=== PATIENT | male | born 1965 | race Caucasian/White ===

== ENCOUNTER 2017-07-07 09:07 | Inpatient (IN) | payer BC, MEDICARE ==
[2017-07-07] MEDS ORDERED: ALBUTEROL NEBULIZED 2.5 MG/3 ML INHALATION STA (09:22)
[2017-07-07] MEDS ORDERED: IPRATROPIUM 0.5 MG/2.5 ML NEBU INHALATION STA (09:22)
[2017-07-07] MEDS ORDERED: AZITHROMYCIN 500 MG in SODIUM CHLORIDE 0.9% 250 ML IVPB STA (09:28)
[2017-07-07] MEDS ORDERED: SODIUM CHLORIDE 0.9% 1,000 ML IV STA ×2 (09:28)
--- NOTE | 2017-07-07 09:30 | ED ---
General Adult HPI - General Chief complaint: Shortness of Breath Stated complaint: Diff Breathing, Cough, Congestion Time Seen by Provider: 07/07/17 09:28 Source: patient, RN notes reviewed, old records reviewed Mode of arrival: wheelchair Limitations: no limitations - History of Present Illness Initial comments: This is a 31-year-old male the ER for evaluation severe shortness of breath severe worsening of symptoms. Difficulty breathing. Denies chest pain, patient 's poor strain secondary to clinical condition. Patient states he cannot catch his breath, initial pulse ox evaluation is in the 70s. Patient significantly to Neck and tachycardic - Related Data Home Medications Medication Instructions Recorded Confirmed Atorvastatin Calcium [Lipitor] 10 mg PO HS 07/07/17 07/07/17 Beclomethasone Dipropionate [Qvar 1 puff INHALATION RT-BID 07/07/17 07/07/17 80 mcg] Losartan [Cozaar] 50 mg PO DAILY 07/07/17 07/07/17 Previous Rx's Medication Instructions Recorded Ipratropium-Albuterol Nebulize 3 ml INHALATION RT-QID #120 08/20/15 [Duoneb 0.5 mg-3 mg/3 ml Soln] ampul.neb Allergies Allergy/AdvReac Type Severity Reaction Status Date / Time No Known Allergies Allergy Verified 07/07/17 09:52 Review of Systems ROS Statement: Those systems with pertinent positive or pertinent negative responses have been documented in the HPI. ROS Other: All systems not noted in ROS Statement are negative. Past Medical History Past Medical History: Unable to Obtain, COPD Additional Past Medical History / Comment(s): sons and brother unaware of any medical condition other than COPD History of Any Multi-Drug Resistant Organisms: Unobtainable Past Surgical History: Unable to Obtain Past Anesthesia/Blood Transfusion Reactions: Unable to Obtain Past Psychological History: Unable to Obtain Smoking Status: Current every day smoker Past Alcohol Use History: Daily, Heavy Past Drug Use History: Marijuana - Past Family History Mother Family Medical History: Unable to Obtain General Exam Limitations: no limitations General appearance: alert, anxious, in distress Head exam: Present: atraumatic, normocephalic, normal inspection Eye exam: Present: normal appearance, PERRL, EOMI. Absent: scleral icterus, conjunctival injection, periorbital swelling ENT exam: Present: normal exam, mucous membranes moist Neck exam: Present: normal inspection. Absent: tenderness, meningismus, lymphadenopathy Respiratory exam: Present: respiratory distress, wheezes, accessory muscle use, decreased breath sounds, prolonged expiratory. Absent: normal lung sounds bilaterally, rales, rhonchi, stridor Cardiovascular Exam: Present: normal rhythm, tachycardia, normal heart sounds. Absent: systolic murmur, diastolic murmur, rubs, gallop, clicks GI/Abdominal exam: Present: soft, normal bowel sounds. Absent: distended, tenderness, guarding, rebound, rigid Extremities exam: Present: normal inspection, full ROM, normal capillary refill. Absent: tenderness, pedal edema, joint swelling, calf tenderness Back exam: Present: normal inspection Neurological exam: Present: alert, oriented X3, CN II-XII intact Psychiatric exam: Present: normal affect, normal mood Skin exam: Present: warm, dry, intact, normal color. Absent: rash Course Vital Signs 07/07/17 07/07/17 07/07/17 09:08 09:26 09:27 Temperature 99.2 F Pulse Rate 120 H 102 H Respiratory 26 H 22 Rate Blood Pressure 151/73 O2 Sat by Pulse 71 L Oximetry 07/07/17 07/07/17 09:45 10:15 Temperature Pulse Rate 108 H 107 H Respiratory Rate Blood Pressure O2 Sat by Pulse Oximetry - Reevaluation(s) Reevaluation #1: 07/07/17 10:30 Patient does have improvement in oxygenation with breathing treatments, still borderline BiPAP, will continue prolonged breathing treatment and reassessed EKG Findings - EKG Comments: EKG Findings:: EKG shows sinus tach rate 114, [place] 120, QRS 80, QTC 407 Medical Decision Making - Medical Decision Making 48 female the ER for evaluation of shortness of breath, severe shortness of breath with history of COPD, continues to smoke, patient to be admitted for severe COPD exacerbation with hypoxia - Lab Data Result diagrams: 07/07/17 09:20 07/07/17 09:20 Lab Results 07/07/17 07/07/17 07/07/17 Range/Units 09:20 09:20 09:20 WBC 9.1 (3.8-10.6) k/uL RBC 4.66 (4.30-5.90) m/uL Hgb 14.7 (13.0-17.5) gm/dL Hct 45.6 (39.0-53.0) % MCV 97.7 (80.0-100.0) fL MCH 31.5 (25.0-35.0) pg MCHC 32.2 (31.0-37.0) g/dL RDW 12.8 (11.5-15.5) % Plt Count 293 (150-450) k/uL Neutrophils % 68 % Lymphocytes % 11 % Monocytes % 16 % Eosinophils % 1 % Basophils % 0 % Neutrophils # 6.2 (1.3-7.7) k/uL Lymphocytes # 1.0 (1.0-4.8) k/uL Monocytes # 1.4 H (0-1.0) k/uL Eosinophils # 0.1 (0-0.7) k/uL Basophils # 0.0 (0-0.2) k/uL Manual Slide Review Performed PT (9.0-12.0) sec INR (<1.2) APTT (22.0-30.0) sec Sodium 141 (137-145) mmol/L Potassium 5.1 (3.5-5.1) mmol/L Chloride 87 L (98-107) mmol/L Carbon Dioxide 40 H* (22-30) mmol/L Anion Gap 14 mmol/L BUN 19 (9-20) mg/dL Creatinine 0.42 L (0.66-1.25) mg/dL Est GFR (CKD-EPI)AfAm >90 (>60 ml/min/1.73 sqM) Est GFR (CKD-EPI)NonAf >90 (>60 ml/min/1.73 sqM) Glucose 181 H (74-99) mg/dL Calcium 10.2 (8.4-10.2) mg/dL Magnesium 1.9 (1.6-2.3) mg/dL Total Bilirubin 0.7 (0.2-1.3) mg/dL AST 16 L (17-59) U/L ALT 21 (21-72) U/L Alkaline Phosphatase 87 (38-126) U/L Total Creatine Kinase 26 L (55-170) U/L CK-MB (CK-2) 2.0 (0.0-2.4) ng/mL CK-MB (CK-2) Rel Index 7.7 Troponin I <0.012 (0.000-0.034) ng/mL NT-Pro-B Natriuret Pep pg/mL Total Protein 7.2 (6.3-8.2) g/dL Albumin 4.6 (3.5-5.0) g/dL 07/07/17 07/07/17 Range/Units 09:20 09:20 WBC (3.8-10.6) k/uL RBC (4.30-5.90) m/uL Hgb (13.0-17.5) gm/dL Hct (39.0-53.0) % MCV (80.0-100.0) fL MCH (25.0-35.0) pg MCHC (31.0-37.0) g/dL RDW (11.5-15.5) % Plt Count (150-450) k/uL Neutrophils % % Lymphocytes % % Monocytes % % Eosinophils % % Basophils % % Neutrophils # (1.3-7.7) k/uL Lymphocytes # (1.0-4.8) k/uL Monocytes # (0-1.0) k/uL Eosinophils # (0-0.7) k/uL Basophils # (0-0.2) k/uL Manual Slide Review PT 9.3 (9.0-12.0) sec INR 0.9 (<1.2) APTT 23.1 (22.0-30.0) sec Sodium (137-145) mmol/L Potassium (3.5-5.1) mmol/L Chloride (98-107) mmol/L Carbon Dioxide (22-30) mmol/L Anion Gap mmol/L BUN (9-20) mg/dL Creatinine (0.66-1.25) mg/dL Est GFR (CKD-EPI)AfAm (>60 ml/min/1.73 sqM) Est GFR (CKD-EPI)NonAf (>60 ml/min/1.73 sqM) Glucose (74-99) mg/dL Calcium (8.4-10.2) mg/dL Magnesium (1.6-2.3) mg/dL Total Bilirubin (0.2-1.3) mg/dL AST (17-59) U/L ALT (21-72) U/L Alkaline Phosphatase (38-126) U/L Total Creatine Kinase (55-170) U/L CK-MB (CK-2) (0.0-2.4) ng/mL CK-MB (CK-2) Rel Index Troponin I (0.000-0.034) ng/mL NT-Pro-B Natriuret Pep 259 pg/mL Total Protein (6.3-8.2) g/dL Albumin (3.5-5.0) g/dL Critical Care Time Critical Care Time: Yes Total Critical Care Time: 31 Disposition Clinical Impression: Acute exacerbation of chronic obstructive pulmonary disease, Acute respiratory failure, Hypoxia Disposition: ADMITTED IP TO THIS HOSP Condition: Serious Is patient prescribed a controlled substance at d/c from ED?: No Referrals: Fabien Plata DO [Primary Care Provider] - 1-2 days
[2017-07-07 09:39] LABS: Basophils % (A) 0 %; Eosinophils # (A) 0.1 k/uL (0-0.7); Eosinophils % (A) 1 %; HCT 45.6 % (39.0-53.0); HGB 14.7 gm/dL (13.0-17.5); Lymphocytes % (A) 11 %; MCH 31.5 pg (25.0-35.0); MCHC 32.2 g/dL (31.0-37.0); MCV 97.7 fL (80.0-100.0); Mean Platelet Volume 6.6; Monocytes # (A) 1.4 k/uL (0-1.0); Monocytes % (A) 16 %; Neutrophils # (A) 6.2 k/uL (1.3-7.7); Neutrophils % (A) 68 %; Platelet Count 293 k/uL (150-450); RBC 4.66 m/uL (4.30-5.90); RDW 12.8 % (11.5-15.5); WBC 9.1 k/uL (3.8-10.6)
[2017-07-07 09:46] LABS: ALT 21 U/L (21-72); AST 16 U/L (17-59); Albumin 4.6 g/dL (3.5-5.0); Alkaline Phosphatase 87 U/L (38-126); Anion Gap 14 mmol/L; Blood Urea Nitrogen 19 mg/dL (9-20); Calcium 10.2 mg/dL (8.4-10.2); Chloride 87 mmol/L (98-107); Glucose 181 mg/dL (74-99); Magnesium 1.9 mg/dL (1.6-2.3); Potassium 5.1 mmol/L (3.5-5.1); Sodium 141 mmol/L (137-145); Total Bilirubin 0.7 mg/dL (0.2-1.3); Total Protein 7.2 g/dL (6.3-8.2)
[2017-07-07 09:47] LABS: INR 0.9 (<1.2); Partial Thromboplastin Time 23.1 sec (22.0-30.0); Prothrombin Time 9.3 sec (9.0-12.0)
--- NOTE | 2017-07-07 09:50 | XR ---
EXAMINATION TYPE: XR chest 1V portable DATE OF EXAM: 07/07/2017 COMPARISON: 08/16/2015 HISTORY: Shortness of breath TECHNIQUE: Single frontal view of the chest is obtained. FINDINGS: Hyperinflation suggests COPD. Prominence the pulmonary arteries may reflect underlying pul monary arterial hypertension. No pneumothorax or pleural effusion. No consolidation. Hyperinflation s uggests COPD. IMPRESSION: Correlate for COPD and possible pulmonary arterial hypertension. Subsegmental changes at the left lung base are more typical of atelectasis than pneumonia.
[2017-07-07 10:01] LABS: Carbon Dioxide 40 mmol/L (22-30)
[2017-07-07 10:05] LABS: Creatine Kinase 26 U/L (55-170)
[2017-07-07 10:18] LABS: Troponin I <0.012 ng/mL (0.000-0.034)
[2017-07-07] MEDS ORDERED: methylPREDNISolone SOD SUCCI 125 MG/2 ML VIAL IV STA (10:30)
[2017-07-07] MEDS: methylPREDNISolone SOD SUCCI 125 MG/2 ML VIAL IV SCH ×2 (11:59→17:07)
[2017-07-07] MEDS: IPRATROPIUM-ALBUTEROL 3 ML NEB INHALATION SCH ×3 (12:24→20:19)
[2017-07-07 14:04] LABS: ABG Oxygen Saturation 88.6 % (94-97); ABG PH 7.22 (7.35-7.45); ABG PO2 60 mmHg (83-108); ABG TCO2 43 mmol/L (19-24)
[2017-07-07 14:07] LABS: ABG PCO2 96 mmHg (35-45)
[2017-07-07 14:08] LABS: ABG HCO3 40 mmol/L (21-25)
[2017-07-07] MEDS: LEVOFLOXACIN 750MG-D5W PMX 750 MG in DEXTROSE/WATER 1 150ML.BAG IVPB SCH (14:14)
--- NOTE | 2017-07-07 15:56 | P.HPIM ---
History of Present Illness H&P Date: 07/07/17 Chief Complaint: shortness of breath This is a 51 years old male with past medical history of COPD on 3 L of oxygen at home, hyperlipidemia, hypertension sees Dr. SUNSHINE from pulmonary comes in with increased congestion and shortness of breath for the past 3 days. He did does endorses congestion and wheezing . States his mother was sick and she lives with him. Patient was evaluated in the ER and was desaturating to 71% on room air with improvement of oxygen saturation on nasal cannula. On evaluation this morning patient is currently on BiPAP. Stat ABG was obtained with suggest a pH of 7.22, CO2 96, pO2 60. CBC was unremarkable this morning BMP suggested of chloride 87, carbon dioxide 40 creatinine 0.42 glucose 181. Patient initiated on IV Solu-Medrol 60 every 6 hours with DuoNeb's and Pulmicort. Dr. Magallon consulted. Patient is in impending respiratory failure and might need intubation if no improvement in next 24 hours. Review of Systems Constitutional: Denies chills, Denies fever, Denies lethargy, Denies malaise, Denies poor appetite, Denies weakness, Denies weight loss Eyes: denies decreased vision, denies diplopia, denies discharge, denies pain Ears: deny: decreased hearing Ears, nose, mouth and throat: Denies dental pain, Denies headache, Denies nasal discharge, Denies nose pain Cardiovascular: Denies chest pain, Denies decreased exercise tolerance, Denies edema, Denies high blood pressure, Denies irregular heart beat, Denies palpitations, Denies paroxysmal nocturnal dyspnea, Denies rapid heart beat, endorses shortness of breath Respiratory: Endorses endorses cough with sputum, endorses dyspnea, endorses home oxygen, endorses wheezing Gastrointestinal: Denies abdominal pain, Denies change in bowel habits, Denies coffee ground emesis, Denies early satiety, Denies excessive gas, Denies heartburn, Denies hematemesis, Denies hematochezia, Denies loss of appetite, Denies nausea, Denies vomiting Genitourinary: Denies dysuria, Denies flank pain, Denies kidney stones, Denies menorrhagia, Denies urgency, Denies urinary frequency Musculoskeletal: Denies gait dysfunction, Denies limitation of motion, Denies morning stiffness, Denies muscle cramps Integumentary: Denies rash, Denies wounds, Denies brittle nails, Denies change in hair/nails, Denies darkening of skin Neurological: Denies balance difficulties, Denies change in speech, Denies double vision, Denies gait dysfunction, Denies loss of vision, Denies motor disturbance, Denies numbness, Denies paralysis, Denies paresthesias, Denies seizures Psychiatric: Denies anxiety, Denies depression Endocrine: Denies excessive sweating, Denies excessive thirst, Denies high blood sugars, Denies palpitations Hematologic/Lymphatic: Denies easy bruising, Denies lymphadenopathy Past Medical History Past Medical History: COPD, Hyperlipidemia, Hypertension Additional Past Medical History / Comment(s): Respiratory failure and has been vented, home O2 at 3L/NC lately ATC but normally at HS only, denies any hx of DE. History of Any Multi-Drug Resistant Organisms: None Reported Past Surgical History: Unable to Obtain, Hernia Repair, Orthopedic Surgery Additional Past Surgical History / Comment(s): R knee arthroscopy, R inguinal hernia repair. Past Anesthesia/Blood Transfusion Reactions: No Reported Reaction Smoking Status: Current every day smoker - Past Family History Mother Family Medical History: Coronary Artery Disease (CAD), Osteoarthritis (OA) Additional Family Medical History / Comment(s): Mother had CABG. She is 85 yrs old. Father Family Medical History: No Reported History Additional Family Medical History / Comment(s): Father is healthy and in his 80s. Medications and Allergies Home Medications Medication Instructions Recorded Confirmed Type Ipratropium-Albuterol Nebulize 3 ml INHALATION RT-QID #120 08/20/15 07/07/17 Rx [Duoneb 0.5 mg-3 mg/3 ml Soln] ampul.neb Atorvastatin Calcium [Lipitor] 10 mg PO HS 07/07/17 07/07/17 History Beclomethasone Dipropionate [Qvar 1 puff INHALATION RT-BID 07/07/17 07/07/17 History 80 mcg] Losartan [Cozaar] 50 mg PO DAILY 07/07/17 07/07/17 History Allergies Allergy/AdvReac Type Severity Reaction Status Date / Time No Known Allergies Allergy Verified 07/07/17 09:52 Physical Exam Vitals: Vital Signs Temp Pulse Pulse Resp BP BP Pulse Ox 07/07/17 12:36 101 H 31 H 07/07/17 12:28 97.2 F L 104 H 24 143/78 92 L 07/07/17 12:24 107 H 28 H 91 L 07/07/17 12:10 98.0 F 07/07/17 11:49 102 H 16 142/72 96 07/07/17 11:00 105 H 18 150/81 96 07/07/17 10:41 108 H 07/07/17 10:15 107 H 07/07/17 09:45 108 H 07/07/17 09:27 102 H 07/07/17 09:26 22 07/07/17 09:08 99.2 F 120 H 26 H 151/73 71 L Intake and Output 07/07/17 07/07/17 07/07/17 06:59 14:59 22:59 Other: Weight 63.503 kg - Constitutional General appearance: cooperative, in acute distress, seen in tripod position on BiPAP answering questions appropriately with good cognition - EENT Eyes: anicteric sclerae, PERRLA, normal appearance ENT: hearing grossly normal - Neck Neck: no lymphadenopathy, normal ROM, no other, no rigidity, no stridor, no thyromegaly - Respiratory Respiratory: bilateral: Decreased air entry with diffuse wheezing best heard in the right upper lobe - Cardiovascular Rhythm: regular Heart sounds: normal: S1, S2 Abnormal Heart Sounds: no systolic murmur, no diastolic murmur, no rub, no S3 Gallop, no S4 Gallop, no click, no other - Gastrointestinal General gastrointestinal: normal bowel sounds, soft - Integumentary Integumentary: no rash - Neurologic Neurologic: CNII-XII intact - Musculoskeletal Musculoskeletal: gait normal, strength equal bilaterally - Psychiatric Psychiatric: A&O x's 3, appropriate affect Results CBC & Chem 7: 07/07/17 09:20 07/07/17 09:20 Labs: Abnormal Lab Results - Last 24 Hours (Table) 07/07/17 07/07/17 07/07/17 Range/Units 09:20 09:20 09:20 Monocytes # 1.4 H (0-1.0) k/uL ABG pH (7.35-7.45) ABG pCO2 (35-45) mmHg ABG pO2 (83-108) mmHg ABG HCO3 (21-25) mmol/L ABG Total CO2 (19-24) mmol/L ABG O2 Saturation (94-97) % Chloride 87 L (98-107) mmol/L Carbon Dioxide 40 H* (22-30) mmol/L Creatinine 0.42 L (0.66-1.25) mg/dL Glucose 181 H (74-99) mg/dL AST 16 L (17-59) U/L Total Creatine Kinase 26 L (55-170) U/L 07/07/17 Range/Units 13:55 Monocytes # (0-1.0) k/uL ABG pH 7.22 L (7.35-7.45) ABG pCO2 96 H* (35-45) mmHg ABG pO2 60 L (83-108) mmHg ABG HCO3 40 H* (21-25) mmol/L ABG Total CO2 43 H (19-24) mmol/L ABG O2 Saturation 88.6 L (94-97) % Chloride (98-107) mmol/L Carbon Dioxide (22-30) mmol/L Creatinine (0.66-1.25) mg/dL Glucose (74-99) mg/dL AST (17-59) U/L Total Creatine Kinase (55-170) U/L Thrombosis Risk Factor Assmnt - DVT/VTE Prophylaxis DVT/VTE Prophylaxis: Pharmacologic Prophylaxis ordered - Choose All That Apply Any of the Below Risk Factors Present?: Yes Each Factor Represents 1 point: Abnormal pulmonary function (COPD), Age 41-60 years Other Risk Factors: No Other congenital or acquired thrombophilia - If yes, enter type in comment: No Thrombosis Risk Factor Assessment Total Risk Factor Score: 2 Thrombosis Risk Factor Assessment Level: Low Risk Assessment and Plan Plan: #1 acute hypoxic hypercapnic respiratory failure secondary to COPD exacerbation. Patient initiated on IV steroids 60 every 6 hours with DuoNeb's. Sputum culture to be collected. Pulmicort twice a day. Mucinex for cough. Levofloxacin 750 mg daily. Fluids to be discontinued. Incentive spirometry #2 hypertension continue losartan 50 mg daily #3 Hyperlipidemia continue Lipitor 10 mg at bedtime #4 tobacco abuse. Patient counseled on smoking cessation, understands that he should not be smoking and wearing oxygen. Plans to continue despite counseling #5 code status full code #6 GI prophylaxis with Pepcid 20 mg twice a day #7 DVT prophylaxis with Lovenox 40 subcu daily Disposition need 2 inpatient nights for COPD exacerbation
[2017-07-07] MEDS ORDERED: ACETAMINOPHEN TAB 325 MG TAB PO PRN (15:57)
[2017-07-07] MEDS ORDERED: ONDANSETRON 4 MG/2 ML VIAL IVP PRN (15:57)
[2017-07-07 16:41] LABS: Glucose,Whole Blood 180 mg/dL (75-99)
[2017-07-07] MEDS: INSULIN ASPART 100 UNIT/ML 1 ML 10 ML VIAL SQ SCH ×2 (17:07→21:39)
--- NOTE | 2017-07-07 17:32 | P.CNPUL ---
History of Present Illness Consult date: 07/07/17 Reason for consult: dyspnea, cough, COPD, hypoxemia, pulmonary hypertension Chief complaint: Shortness of breath and cough progressive for last 5 days History of present illness: 51-year-old male with the history of end-stage lung disease and severe COPD emphysema still smoking a pack a day patient started having progressive increased shortness breath for almost one week however started coughing about 5 days ago cough has been associated with thick greenish sputum patient the continue to have progressive worsening of shortness of breath up to a point that he couldn't smoke or inhale, decided to come into the emergency department for further evaluation he was found to have severe degree of hypercapnic hypoxic respirator failure his preliminary arterial blood gas performed in the emergency department revealed pH of 7.22, PaCO2 of 96, PA O2 of 60, patient has been placed on BiPAP machine currently during evaluation he was on IPAP with IPAP of 12 and EPAP of 6 sets respiratory rate of 16 and 40% oxygen he was breathing in 30s difficulty in completing the sentences though but overall on specific questioning he feels the severity of shortness of breath has improved slightly compared to the time of arrival, on specific questioning he denies any seizure activity loss of consciousness), denies any chest pain neck sips some chest tightness, does have cough associated with sputum production denies any hemoptysis, denies any nausea vomiting diarrhea, denies any bowel or bladder dysfunction Review of Systems All systems: negative Past Medical History Past Medical History: COPD, Hyperlipidemia, Hypertension Additional Past Medical History / Comment(s): Respiratory failure and has been vented, home O2 at 3L/NC lately ATC but normally at HS only, denies any hx of ID. History of Any Multi-Drug Resistant Organisms: None Reported Past Surgical History: Unable to Obtain, Hernia Repair, Orthopedic Surgery Additional Past Surgical History / Comment(s): R knee arthroscopy, R inguinal hernia repair. Past Anesthesia/Blood Transfusion Reactions: No Reported Reaction Smoking Status: Current every day smoker - Past Family History Mother Family Medical History: Coronary Artery Disease (CAD), Osteoarthritis (OA) Additional Family Medical History / Comment(s): Mother had CABG. She is 85 yrs old. Father Family Medical History: No Reported History Additional Family Medical History / Comment(s): Father is healthy and in his 80s. Medications and Allergies Home Medications Medication Instructions Recorded Confirmed Type Ipratropium-Albuterol Nebulize 3 ml INHALATION RT-QID #120 08/20/15 07/07/17 Rx [Duoneb 0.5 mg-3 mg/3 ml Soln] ampul.neb Atorvastatin Calcium [Lipitor] 10 mg PO HS 07/07/17 07/07/17 History Beclomethasone Dipropionate [Qvar 1 puff INHALATION RT-BID 07/07/17 07/07/17 History 80 mcg] Losartan [Cozaar] 50 mg PO DAILY 07/07/17 07/07/17 History Allergies Allergy/AdvReac Type Severity Reaction Status Date / Time No Known Allergies Allergy Verified 07/07/17 09:52 Physical Exam Vitals: Vital Signs Temp Pulse Pulse Resp BP BP Pulse Ox 07/07/17 17:09 100 07/07/17 15:49 97.0 F L 103 H 24 139/81 91 L 07/07/17 12:36 101 H 31 H 07/07/17 12:28 97.2 F L 104 H 24 143/78 92 L 07/07/17 12:24 107 H 28 H 91 L 07/07/17 12:10 98.0 F 07/07/17 11:49 102 H 16 142/72 96 07/07/17 11:00 105 H 18 150/81 96 07/07/17 10:41 108 H 07/07/17 10:15 107 H 07/07/17 09:45 108 H 07/07/17 09:27 102 H 07/07/17 09:26 22 07/07/17 09:08 99.2 F 120 H 26 H 151/73 71 L Intake and Output 07/07/17 07/07/17 07/07/17 06:59 14:59 22:59 Output Total 200 Balance -200 Output: Urine 200 Other: Voiding Method Urinal # Voids 1 # Bowel Movements 0 Weight 63.503 kg - Constitutional General appearance: cooperative, in acute distress, sitting upright position on BiPAP answering questions appropriately with good cognition however have difficult time and completing the sentences - EENT Eyes: anicteric sclerae, PERRLA, normal appearance ENT: hearing grossly normal - Neck Neck: no lymphadenopathy, normal ROM, no other, no rigidity, no stridor, no thyromegaly - Respiratory Respiratory: bilateral poor air entry with fine diffuse wheezing - Cardiovascular Rhythm: regular Heart sounds: normal: S1, S2 Abnormal Heart Sounds: no systolic murmur, no diastolic murmur, no rub, no S3 Gallop, no S4 Gallop, no click, no other - Gastrointestinal General gastrointestinal: normal bowel sounds, soft - Integumentary Integumentary: no rash - Neurologic Neurologic: CNII-XII intact, overall normal neurologic examination - Musculoskeletal Musculoskeletal: gait normal, strength equal bilaterally - Psychiatric Psychiatric: A&O x's 3, appropriate affect Results - Laboratory Findings CBC and BMP: 07/07/17 09:20 07/07/17 09:20 ABG ABG pH 7.22 (7.35-7.45) L 07/07/17 13:55 ABG pCO2 96 mmHg (35-45) H* 07/07/17 13:55 ABG pO2 60 mmHg (83-108) L 07/07/17 13:55 ABG O2 Saturation 88.6 % (94-97) L 07/07/17 13:55 PT/INR, D-dimer PT 9.3 sec (9.0-12.0) 07/07/17 09:20 INR 0.9 (<1.2) 07/07/17 09:20 Abnormal lab findings: Abnormal Labs 07/07/17 07/07/17 07/07/17 09:20 09:20 09:20 Monocytes # 1.4 H ABG pH ABG pCO2 ABG pO2 ABG HCO3 ABG Total CO2 ABG O2 Saturation Chloride 87 L Carbon Dioxide 40 H* Creatinine 0.42 L Glucose 181 H POC Glucose (mg/dL) AST 16 L Total Creatine Kinase 26 L 07/07/17 07/07/17 13:55 16:39 Monocytes # ABG pH 7.22 L ABG pCO2 96 H* ABG pO2 60 L ABG HCO3 40 H* ABG Total CO2 43 H ABG O2 Saturation 88.6 L Chloride Carbon Dioxide Creatinine Glucose POC Glucose (mg/dL) 180 H AST Total Creatine Kinase - Diagnostic Findings Chest x-ray: report reviewed, image reviewed (Finding consistent with the advanced COPD with hyperinflated lung, prominent pulmonary vasculature seen consistent with pulmonary hypertension basal atelectasis on the left base suggestive of pneumonia versus atelectasis) Assessment and Plan Assessment: Acute hypoxic and hypercapnic respirator failure Left lower lobe pneumonia Acute COPD exacerbation Purulent tracheobronchitis Extensive history of smoking and nicotine use Prior history of respirator failure requiring ventilator support Plan: Gentle rehydration IV antibiotics and IV steroids Breathing treatments DVT and peptic ulcer disease prophylaxis Sliding scale for hyperglycemia Deep breathing exercise incentive spirometry as tolerated BiPAP support each night and when necessary during the day Repeat blood gas later on today to see the response of BiPAP if worsening of respiratory acidosis and hypoxia on and/or or clinical deterioration is seen patient will be moved to the ICU and possibly intubated Time with Patient: Greater than 30
[2017-07-07 19:06] LABS: Hemoglobin A1C 5.4 % (4.0-6.0)
[2017-07-07 19:42] LABS: ABG Oxygen Saturation 97.3 % (94-97); ABG PH 7.23 (7.35-7.45); ABG PO2 98 mmHg (83-108); ABG TCO2 45 mmol/L (19-24)
[2017-07-07 19:51] LABS: ABG PCO2 99 mmHg (35-45)
[2017-07-07 19:52] LABS: ABG HCO3 42 mmol/L (21-25)
[2017-07-07] MEDS: BUDESONIDE 1 MG/2 ML NEBU INHALATION SCH (20:20)
[2017-07-07] MEDS: FAMOTIDINE 20 MG TAB PO SCH (20:38)
[2017-07-07 20:56] LABS: Glucose,Whole Blood 153 mg/dL (75-99)
[2017-07-07 21:24] LABS: HCT 39.8 % (39.0-53.0); HGB 12.6 gm/dL (13.0-17.5); Hypochromasia Slight; MCH 30.9 pg (25.0-35.0); MCHC 31.6 g/dL (31.0-37.0); Platelet Count 251 k/uL (150-450); RBC 4.06 m/uL (4.30-5.90); RDW 12.8 % (11.5-15.5); WBC 5.6 k/uL (3.8-10.6)
[2017-07-07] MEDS ORDERED: NALOXONE 0.4 MG/ML 1 ML VIAL IV PRN (21:45)
[2017-07-07 21:46] LABS: ALT 18 U/L (21-72); AST 15 U/L (17-59); Albumin 3.8 g/dL (3.5-5.0); Alkaline Phosphatase 67 U/L (38-126); Blood Urea Nitrogen 19 mg/dL (9-20); Calcium 9.7 mg/dL (8.4-10.2); Chloride 91 mmol/L (98-107); Glucose 156 mg/dL (74-99); Potassium 4.5 mmol/L (3.5-5.1); Sodium 140 mmol/L (137-145); Total Bilirubin 0.3 mg/dL (0.2-1.3); Total Protein 6.3 g/dL (6.3-8.2)
[2017-07-07 21:53] LABS: Anion Gap 10 mmol/L
[2017-07-07 21:55] LABS: Carbon Dioxide 39 mmol/L (22-30)
[2017-07-08] MEDS: methylPREDNISolone SOD SUCCI 125 MG/2 ML VIAL IV SCH ×5 (00:15→23:50)
[2017-07-08 04:18] LABS: Basophils % (A) 0 %; Eosinophils % (A) 0 %; HGB 12.1 gm/dL (13.0-17.5); Hypochromasia Slight; Lymphocytes # (A) 0.8 k/uL (1.0-4.8); Lymphocytes % (A) 13 %; MCH 31.4 pg (25.0-35.0); MCV 98.3 fL (80.0-100.0); Mean Platelet Volume 6.8; Monocytes # (A) 0.5 k/uL (0-1.0); Monocytes % (A) 8 %; Neutrophils # (A) 4.9 k/uL (1.3-7.7); Neutrophils % (A) 77 %; Platelet Count 242 k/uL (150-450); RBC 3.86 m/uL (4.30-5.90); RDW 12.9 % (11.5-15.5); WBC 6.3 k/uL (3.8-10.6)
[2017-07-08 04:25] LABS: ALT 17 U/L (21-72); AST 15 U/L (17-59); Albumin 3.5 g/dL (3.5-5.0); Alkaline Phosphatase 62 U/L (38-126); Blood Urea Nitrogen 18 mg/dL (9-20); Calcium 9.9 mg/dL (8.4-10.2); Chloride 92 mmol/L (98-107); Glucose 158 mg/dL (74-99); Magnesium 2.1 mg/dL (1.6-2.3); Phosphorus 2.7 mg/dL (2.5-4.5); Potassium 4.3 mmol/L (3.5-5.1); Sodium 139 mmol/L (137-145); Total Bilirubin 0.2 mg/dL (0.2-1.3); Total Protein 5.9 g/dL (6.3-8.2)
[2017-07-08 04:59] LABS: Carbon Dioxide 38 mmol/L (22-30)
[2017-07-08 05:01] LABS: Anion Gap 9 mmol/L
[2017-07-08 07:37] LABS: Glucose,Whole Blood 164 mg/dL (75-99)
[2017-07-08 08:00] LABS: ABG Base Excess 15.8 mmol/L; ABG Oxygen Saturation 96.6 % (94-97); ABG PH 7.28 (7.35-7.45); ABG PO2 88 mmHg (83-108); ABG TCO2 46 mmol/L (19-24)
[2017-07-08 08:02] LABS: ABG HCO3 43 mmol/L (21-25); ABG PCO2 92 mmHg (35-45)
--- NOTE | 2017-07-08 08:09 | XR ---
EXAMINATION TYPE: XR chest 1V DATE OF EXAM: 07/08/2017 COMPARISON: Prior chest 07/07/2017 HISTORY: Shortness of breath TECHNIQUE: frontal view of the chest is obtained on 2 images. FINDINGS: There is no focal air space opacity, pleural effusion, or pneumothorax seen. Prominent rafael g volumes again noted suggesting COPD. Interstitium is increased. There are overlying cardiac leads. Prominence of the pulmonary artery again noted. The cardiac silhouette size is within normal limits. The osseous structures are intact. IMPRESSION: No acute process. Correlate for possible pulmonary artery hypertension.
[2017-07-08] MEDS: INSULIN ASPART 100 UNIT/ML 1 ML 10 ML VIAL SQ SCH ×4 (08:13→20:58)
[2017-07-08] MEDS: FAMOTIDINE 20 MG TAB PO SCH ×2 (08:33→21:12)
[2017-07-08] MEDS: ENOXAPARIN 40 MG/0.4 ML SYRINGE SQ SCH (08:33)
[2017-07-08] MEDS: IPRATROPIUM-ALBUTEROL 3 ML NEB INHALATION SCH ×4 (08:39→19:46)
[2017-07-08] MEDS: BUDESONIDE 1 MG/2 ML NEBU INHALATION SCH ×2 (08:39→19:46)
--- NOTE | 2017-07-08 09:55 | P.PN ---
Subjective Progress Note Date: 07/08/17 (Critical care time spent 35 minutes) Principal diagnosis: Acute hypoxic and hypercapnic respirator failure, acute COPD exacerbation, purulent tracheobronchitis, extensive history of smoking and nicotine use, hypertension hypertensive cardiovascular disease, dyslipidemia 07/08/2017, patient seen eval reexamined in the ICU patient has been moved from selective care due to persistent hypercapnia and severe profound respiratory acidosis patient remains tachypneic and tachycardic the BiPAP setting is being adjusted now being switched to 15/10 with IPAP and EPAP oxygen is brought down to 35% will repeat another arterial blood gas later on today we'll keep patient in ICU for another 24 hours as respiratory status remains marginal with a significant history of the prior intubation and prolonged ventilator support. Laboratory data reviewed radiographic studies as well as arterial blood gases and medications reviewed as well care plan discussed with the staff as well as respiratory therapy and patient. Patient remains tachypneic tachycardic and short of breath has the however been able to finish out full sentences then has to stop due to breathing difficulty still have cough predominantly dry nonproductive 51-year-old male with the history of end-stage lung disease and severe COPD emphysema still smoking a pack a day patient started having progressive increased shortness breath for almost one week however started coughing about 5 days ago cough has been associated with thick greenish sputum patient the continue to have progressive worsening of shortness of breath up to a point that he couldn't smoke or inhale, decided to come into the emergency department for further evaluation he was found to have severe degree of hypercapnic hypoxic respirator failure his preliminary arterial blood gas performed in the emergency department revealed pH of 7.22, PaCO2 of 96, PA O2 of 60, patient has been placed on BiPAP machine currently during evaluation he was on IPAP with IPAP of 12 and EPAP of 6 sets respiratory rate of 16 and 40% oxygen he was breathing in 30s difficulty in completing the sentences though but overall on specific questioning he feels the severity of shortness of breath has improved slightly compared to the time of arrival, on specific questioning he denies any seizure activity loss of consciousness), denies any chest pain neck sips some chest tightness, does have cough associated with sputum production denies any hemoptysis, denies any nausea vomiting diarrhea, denies any bowel or bladder dysfunction Objective - Vital Signs Vital signs: Vital Signs Temp 96.9 F L 07/08/17 08:00 Pulse 85 07/08/17 09:00 Resp 16 07/08/17 09:00 BP 126/70 07/08/17 09:00 Pulse Ox 95 07/08/17 09:00 Intake & Output 07/07/17 07/08/17 07/08/17 18:59 06:59 18:59 Intake Total 240 220 440 Output Total 200 250 Balance 40 220 190 Weight 63.503 kg 57.7 kg Intake: IV 220 40 0.9% NS 220 40 Oral 240 400 Output: Urine 200 250 Other: Voiding Method Urinal Urinal Urinal # Voids 1 # Bowel Movements 0 - Exam - Constitutional General appearance: cooperative, in acute distress, sitting upright position on BiPAP answering questions appropriately with good cognition however have difficult time and completing the sentences - EENT Eyes: anicteric sclerae, PERRLA, normal appearance ENT: hearing grossly normal - Neck Neck: no lymphadenopathy, normal ROM, no other, no rigidity, no stridor, no thyromegaly - Respiratory Respiratory: bilateral poor air entry with fine diffuse wheezing - Cardiovascular Rhythm: regular Heart sounds: normal: S1, S2 Abnormal Heart Sounds: no systolic murmur, no diastolic murmur, no rub, no S3 Gallop, no S4 Gallop, no click, no other - Gastrointestinal General gastrointestinal: normal bowel sounds, soft - Integumentary Integumentary: no rash - Neurologic Neurologic: CNII-XII intact, overall normal neurologic examination - Musculoskeletal Musculoskeletal: gait normal, strength equal bilaterally - Psychiatric Psychiatric: A&O x's 3, appropriate affect - Labs CBC & Chem 7: 07/08/17 03:46 07/08/17 03:46 Labs: Abnormal Lab Results - Last 24 Hours (Table) 07/07/17 07/07/17 07/07/17 Range/Units 09:20 09:20 09:20 RBC (4.30-5.90) m/uL Hgb (13.0-17.5) gm/dL Hct (39.0-53.0) % Lymphocytes # (1.0-4.8) k/uL Monocytes # 1.4 H (0-1.0) k/uL ABG pH (7.35-7.45) ABG pCO2 (35-45) mmHg ABG pO2 (83-108) mmHg ABG HCO3 (21-25) mmol/L ABG Total CO2 (19-24) mmol/L ABG O2 Saturation (94-97) % Chloride 87 L (98-107) mmol/L Carbon Dioxide 40 H* (22-30) mmol/L Creatinine 0.42 L (0.66-1.25) mg/dL Glucose 181 H (74-99) mg/dL POC Glucose (mg/dL) (75-99) mg/dL AST 16 L (17-59) U/L ALT (21-72) U/L Total Creatine Kinase 26 L (55-170) U/L Total Protein (6.3-8.2) g/dL 07/07/17 07/07/17 07/07/17 Range/Units 13:55 16:39 19:34 RBC (4.30-5.90) m/uL Hgb (13.0-17.5) gm/dL Hct (39.0-53.0) % Lymphocytes # (1.0-4.8) k/uL Monocytes # (0-1.0) k/uL ABG pH 7.22 L 7.23 L (7.35-7.45) ABG pCO2 96 H* 99 H* (35-45) mmHg ABG pO2 60 L (83-108) mmHg ABG HCO3 40 H* 42 H* (21-25) mmol/L ABG Total CO2 43 H 45 H (19-24) mmol/L ABG O2 Saturation 88.6 L 97.3 H (94-97) % Chloride (98-107) mmol/L Carbon Dioxide (22-30) mmol/L Creatinine (0.66-1.25) mg/dL Glucose (74-99) mg/dL POC Glucose (mg/dL) 180 H (75-99) mg/dL AST (17-59) U/L ALT (21-72) U/L Total Creatine Kinase (55-170) U/L Total Protein (6.3-8.2) g/dL 07/07/17 07/07/17 07/07/17 Range/Units 20:53 21:00 21:00 RBC 4.06 L (4.30-5.90) m/uL Hgb 12.6 L (13.0-17.5) gm/dL Hct (39.0-53.0) % Lymphocytes # (1.0-4.8) k/uL Monocytes # (0-1.0) k/uL ABG pH (7.35-7.45) ABG pCO2 (35-45) mmHg ABG pO2 (83-108) mmHg ABG HCO3 (21-25) mmol/L ABG Total CO2 (19-24) mmol/L ABG O2 Saturation (94-97) % Chloride 91 L (98-107) mmol/L Carbon Dioxide 39 H (22-30) mmol/L Creatinine 0.40 L (0.66-1.25) mg/dL Glucose 156 H (74-99) mg/dL POC Glucose (mg/dL) 153 H (75-99) mg/dL AST 15 L (17-59) U/L ALT 18 L (21-72) U/L Total Creatine Kinase (55-170) U/L Total Protein (6.3-8.2) g/dL 07/08/17 07/08/17 07/08/17 Range/Units 03:46 03:46 07:35 RBC 3.86 L (4.30-5.90) m/uL Hgb 12.1 L (13.0-17.5) gm/dL Hct 38.0 L (39.0-53.0) % Lymphocytes # 0.8 L (1.0-4.8) k/uL Monocytes # (0-1.0) k/uL ABG pH (7.35-7.45) ABG pCO2 (35-45) mmHg ABG pO2 (83-108) mmHg ABG HCO3 (21-25) mmol/L ABG Total CO2 (19-24) mmol/L ABG O2 Saturation (94-97) % Chloride 92 L (98-107) mmol/L Carbon Dioxide 38 H (22-30) mmol/L Creatinine 0.40 L (0.66-1.25) mg/dL Glucose 158 H (74-99) mg/dL POC Glucose (mg/dL) 164 H (75-99) mg/dL AST 15 L (17-59) U/L ALT 17 L (21-72) U/L Total Creatine Kinase (55-170) U/L Total Protein 5.9 L (6.3-8.2) g/dL 07/08/17 Range/Units 07:58 RBC (4.30-5.90) m/uL Hgb (13.0-17.5) gm/dL Hct (39.0-53.0) % Lymphocytes # (1.0-4.8) k/uL Monocytes # (0-1.0) k/uL ABG pH 7.28 L (7.35-7.45) ABG pCO2 92 H* (35-45) mmHg ABG pO2 (83-108) mmHg ABG HCO3 43 H* (21-25) mmol/L ABG Total CO2 46 H (19-24) mmol/L ABG O2 Saturation (94-97) % Chloride (98-107) mmol/L Carbon Dioxide (22-30) mmol/L Creatinine (0.66-1.25) mg/dL Glucose (74-99) mg/dL POC Glucose (mg/dL) (75-99) mg/dL AST (17-59) U/L ALT (21-72) U/L Total Creatine Kinase (55-170) U/L Total Protein (6.3-8.2) g/dL Assessment and Plan Assessment: Acute hypoxic and hypercapnic respirator failure Left lower lobe pneumonia Acute COPD exacerbation Severe pulmonary hypertension likely related to end-stage lung disease due to severe COPD emphysema Purulent tracheobronchitis Extensive history of smoking and nicotine use Prior history of respirator failure requiring ventilator support Plan: Gentle rehydration BiPAP adjusted repeat blood gas later on today Keep patient in ICU IV antibiotics and IV steroids Breathing treatments DVT and peptic ulcer disease prophylaxis Sliding scale for hyperglycemia Deep breathing exercise incentive spirometry as tolerated BiPAP support each night and when necessary during the day Repeat blood gas later on today to see the response of BiPAP if worsening of respiratory acidosis and hypoxia on and/or or clinical deterioration is seen patient will be intubated, critical care time 35 minutes Time with Patient: Greater than 30
[2017-07-08 11:47] LABS: Glucose,Whole Blood 224 mg/dL (75-99)
[2017-07-08] MEDS: LEVOFLOXACIN 750MG-D5W PMX 750 MG in DEXTROSE/WATER 1 150ML.BAG IVPB SCH (13:51)
--- NOTE | 2017-07-08 14:01 | P.PN ---
Subjective Progress Note Date: 07/08/17 This is a 51 years old male with past medical history of COPD on 3 L of oxygen at home, hyperlipidemia, hypertension sees Dr. SUNSHINE from pulmonary comes in with increased congestion and shortness of breath for the past 3 days. He did does endorses congestion and wheezing . States his mother was sick and she lives with him. Patient was evaluated in the ER and was desaturating to 71% on room air with improvement of oxygen saturation on nasal cannula. On evaluation this morning patient is currently on BiPAP. Stat ABG was obtained with suggest a pH of 7.22, CO2 96, pO2 60. CBC was unremarkable this morning BMP suggested of chloride 87, carbon dioxide 40 creatinine 0.42 glucose 181. Patient initiated on IV Solu-Medrol 60 every 6 hours with DuoNeb's and Pulmicort. Dr. Magallon consulted. Patient is in impending respiratory failure and might need intubation if no improvement in next 24 hours. 07/08: Patient has been seen and followed by Dr. Magallon. Last evening patient was transferred into the intensive care unit due to ABG results and known history of intubation in the past. Patient has been maintained on BiPAP with pulse ox of 95%. He has been afebrile. Respirations are running in the 20s and 30s. Patient has had BiPAP settings adjusted and repeat ABG scheduled for 2 PM. Patient has only been off BiPAP for a few minutes he breakfast. He denies any chest pain. He states his cough is more productive now. He denies any nausea or vomiting. Influenza came back negative. Objective - Vital Signs Vital signs: Vital Signs Temp 96.9 F L 07/08/17 08:00 Pulse 85 07/08/17 09:00 Resp 16 07/08/17 09:00 BP 126/70 07/08/17 09:00 Pulse Ox 95 07/08/17 09:00 Intake & Output 07/07/17 07/08/17 07/08/17 18:59 06:59 18:59 Intake Total 240 220 440 Output Total 200 250 Balance 40 220 190 Weight 63.503 kg 57.7 kg Intake: IV 220 40 0.9% NS 220 40 Oral 240 400 Output: Urine 200 250 Other: Voiding Method Urinal Urinal Urinal # Voids 1 # Bowel Movements 0 - Exam General appearance: cooperative, in acute distress, seen in tripod position on BiPAP answering questions appropriately with good cognition - EENT Eyes: anicteric sclerae, PERRLA, normal appearance ENT: hearing grossly normal - Neck Neck: no lymphadenopathy, normal ROM, no other, no rigidity, no stridor, no thyromegaly - Respiratory Respiratory: bilateral: Decreased air entry with diffuse wheezing best heard in the right upper lobe - Cardiovascular Rhythm: regular Heart sounds: normal: S1, S2 Abnormal Heart Sounds: no systolic murmur, no diastolic murmur, no rub, no S3 Gallop, no S4 Gallop, no click, no other - Gastrointestinal General gastrointestinal: normal bowel sounds, soft - Integumentary Integumentary: no rash - Neurologic Neurologic: CNII-XII intact - Musculoskeletal Musculoskeletal: gait normal, strength equal bilaterally - Psychiatric Psychiatric: A&O x's 3, appropriate affect - Labs CBC & Chem 7: 07/08/17 03:46 07/08/17 03:46 Labs: Abnormal Lab Results - Last 24 Hours (Table) 07/07/17 07/07/17 07/07/17 Range/Units 09:20 09:20 09:20 RBC (4.30-5.90) m/uL Hgb (13.0-17.5) gm/dL Hct (39.0-53.0) % Lymphocytes # (1.0-4.8) k/uL Monocytes # 1.4 H (0-1.0) k/uL ABG pH (7.35-7.45) ABG pCO2 (35-45) mmHg ABG pO2 (83-108) mmHg ABG HCO3 (21-25) mmol/L ABG Total CO2 (19-24) mmol/L ABG O2 Saturation (94-97) % Chloride 87 L (98-107) mmol/L Carbon Dioxide 40 H* (22-30) mmol/L Creatinine 0.42 L (0.66-1.25) mg/dL Glucose 181 H (74-99) mg/dL POC Glucose (mg/dL) (75-99) mg/dL AST 16 L (17-59) U/L ALT (21-72) U/L Total Creatine Kinase 26 L (55-170) U/L Total Protein (6.3-8.2) g/dL 07/07/17 07/07/17 07/07/17 Range/Units 13:55 16:39 19:34 RBC (4.30-5.90) m/uL Hgb (13.0-17.5) gm/dL Hct (39.0-53.0) % Lymphocytes # (1.0-4.8) k/uL Monocytes # (0-1.0) k/uL ABG pH 7.22 L 7.23 L (7.35-7.45) ABG pCO2 96 H* 99 H* (35-45) mmHg ABG pO2 60 L (83-108) mmHg ABG HCO3 40 H* 42 H* (21-25) mmol/L ABG Total CO2 43 H 45 H (19-24) mmol/L ABG O2 Saturation 88.6 L 97.3 H (94-97) % Chloride (98-107) mmol/L Carbon Dioxide (22-30) mmol/L Creatinine (0.66-1.25) mg/dL Glucose (74-99) mg/dL POC Glucose (mg/dL) 180 H (75-99) mg/dL AST (17-59) U/L ALT (21-72) U/L Total Creatine Kinase (55-170) U/L Total Protein (6.3-8.2) g/dL 07/07/17 07/07/17 07/07/17 Range/Units 20:53 21:00 21:00 RBC 4.06 L (4.30-5.90) m/uL Hgb 12.6 L (13.0-17.5) gm/dL Hct (39.0-53.0) % Lymphocytes # (1.0-4.8) k/uL Monocytes # (0-1.0) k/uL ABG pH (7.35-7.45) ABG pCO2 (35-45) mmHg ABG pO2 (83-108) mmHg ABG HCO3 (21-25) mmol/L ABG Total CO2 (19-24) mmol/L ABG O2 Saturation (94-97) % Chloride 91 L (98-107) mmol/L Carbon Dioxide 39 H (22-30) mmol/L Creatinine 0.40 L (0.66-1.25) mg/dL Glucose 156 H (74-99) mg/dL POC Glucose (mg/dL) 153 H (75-99) mg/dL AST 15 L (17-59) U/L ALT 18 L (21-72) U/L Total Creatine Kinase (55-170) U/L Total Protein (6.3-8.2) g/dL 07/08/17 07/08/17 07/08/17 Range/Units 03:46 03:46 07:35 RBC 3.86 L (4.30-5.90) m/uL Hgb 12.1 L (13.0-17.5) gm/dL Hct 38.0 L (39.0-53.0) % Lymphocytes # 0.8 L (1.0-4.8) k/uL Monocytes # (0-1.0) k/uL ABG pH (7.35-7.45) ABG pCO2 (35-45) mmHg ABG pO2 (83-108) mmHg ABG HCO3 (21-25) mmol/L ABG Total CO2 (19-24) mmol/L ABG O2 Saturation (94-97) % Chloride 92 L (98-107) mmol/L Carbon Dioxide 38 H (22-30) mmol/L Creatinine 0.40 L (0.66-1.25) mg/dL Glucose 158 H (74-99) mg/dL POC Glucose (mg/dL) 164 H (75-99) mg/dL AST 15 L (17-59) U/L ALT 17 L (21-72) U/L Total Creatine Kinase (55-170) U/L Total Protein 5.9 L (6.3-8.2) g/dL 07/08/17 Range/Units 07:58 RBC (4.30-5.90) m/uL Hgb (13.0-17.5) gm/dL Hct (39.0-53.0) % Lymphocytes # (1.0-4.8) k/uL Monocytes # (0-1.0) k/uL ABG pH 7.28 L (7.35-7.45) ABG pCO2 92 H* (35-45) mmHg ABG pO2 (83-108) mmHg ABG HCO3 43 H* (21-25) mmol/L ABG Total CO2 46 H (19-24) mmol/L ABG O2 Saturation (94-97) % Chloride (98-107) mmol/L Carbon Dioxide (22-30) mmol/L Creatinine (0.66-1.25) mg/dL Glucose (74-99) mg/dL POC Glucose (mg/dL) (75-99) mg/dL AST (17-59) U/L ALT (21-72) U/L Total Creatine Kinase (55-170) U/L Total Protein (6.3-8.2) g/dL Assessment and Plan Plan: 1. Acute hypoxic hypercapnic respiratory failure secondary to COPD exacerbation. Continue Solu-Medrol IV 60 mg every 6 hours , DuoNeb treatments 4 times daily, Pulmicort 1 mg twice daily, Levaquin 750 mg daily, continue BiPAP. Consult with Dr. Sherita kirkland. Sputum culture remains on collected. Patient transferred into the intensive care unit. Incentive spirometry 2. Hypertension continue losartan 50 mg daily 3. Hyperlipidemia continue Lipitor 10 mg at bedtime 4. Tobacco abuse. Patient counseled on smoking cessation, understands that he should not be smoking and wearing oxygen. Plans to continue despite counseling 5. Code status full code 6. GI prophylaxis with Pepcid 20 mg twice a day 7. DVT prophylaxis with Lovenox 40 subcu daily Discharge plan: Most likely return home Impression and plan of care have been directed as dictated by the signing physician. [employer] nurse practitioner acting as scribe for signing physician.
[2017-07-08 14:04] LABS: ABG Base Excess 15.8 mmol/L; ABG Oxygen Saturation 94.4 % (94-97); ABG PH 7.33 (7.35-7.45); ABG PO2 70 mmHg (83-108); ABG TCO2 44 mmol/L (19-24)
[2017-07-08 14:06] LABS: ABG HCO3 42 mmol/L (21-25); ABG PCO2 80 mmHg (35-45)
[2017-07-08 17:07] LABS: Glucose,Whole Blood 159 mg/dL (75-99)
[2017-07-08 20:50] LABS: Glucose,Whole Blood 121 mg/dL (75-99)
[2017-07-09 04:50] LABS: Basophils % (A) 0 %; Eosinophils # (A) 0.1 k/uL (0-0.7); Eosinophils % (A) 1 %; HCT 38.9 % (39.0-53.0); HGB 12.3 gm/dL (13.0-17.5); Lymphocytes # (A) 0.9 k/uL (1.0-4.8); Lymphocytes % (A) 6 %; MCH 30.6 pg (25.0-35.0); MCHC 31.5 g/dL (31.0-37.0); MCV 97.3 fL (80.0-100.0); Mean Platelet Volume 6.6; Monocytes # (A) 0.9 k/uL (0-1.0); Monocytes % (A) 6 %; Neutrophils # (A) 12.2 k/uL (1.3-7.7); Neutrophils % (A) 85 %; Platelet Count 303 k/uL (150-450); RDW 12.9 % (11.5-15.5); WBC 14.3 k/uL (3.8-10.6)
[2017-07-09 05:02] LABS: ALT 21 U/L (21-72); AST 13 U/L (17-59); Albumin 3.2 g/dL (3.5-5.0); Alkaline Phosphatase 55 U/L (38-126); Blood Urea Nitrogen 23 mg/dL (9-20); Calcium 9.8 mg/dL (8.4-10.2); Chloride 94 mmol/L (98-107); Glucose 145 mg/dL (74-99); Magnesium 2.1 mg/dL (1.6-2.3); Phosphorus 2.5 mg/dL (2.5-4.5); Potassium 4.8 mmol/L (3.5-5.1); Sodium 141 mmol/L (137-145); Total Bilirubin 0.1 mg/dL (0.2-1.3); Total Protein 5.4 g/dL (6.3-8.2)
[2017-07-09 05:07] LABS: Anion Gap 8 mmol/L; Carbon Dioxide 39 mmol/L (22-30)
[2017-07-09] MEDS: methylPREDNISolone SOD SUCCI 125 MG/2 ML VIAL IV SCH ×4 (05:47→23:34)
[2017-07-09 05:48] LABS: ABG Base Excess 17.2 mmol/L; ABG Oxygen Saturation 97.3 % (94-97); ABG PH 7.39 (7.35-7.45); ABG PO2 97 mmHg (83-108); ABG TCO2 44 mmol/L (19-24)
[2017-07-09 05:53] LABS: ABG HCO3 42 mmol/L (21-25); ABG PCO2 70 mmHg (35-45)
[2017-07-09 07:11] LABS: Glucose,Whole Blood 151 mg/dL (75-99)
--- NOTE | 2017-07-09 07:30 | XR ---
EXAMINATION TYPE: XR chest 1V DATE OF EXAM: 07/09/2017 COMPARISON: Prior chest x-ray 07/08/2017 HISTORY: Shortness of breath TECHNIQUE: Single frontal view of the chest is obtained. FINDINGS: The exam is stable. IMPRESSION: No acute process.
[2017-07-09] MEDS: INSULIN ASPART 100 UNIT/ML 1 ML 10 ML VIAL SQ SCH ×4 (08:12→21:18)
[2017-07-09] MEDS: ENOXAPARIN 40 MG/0.4 ML SYRINGE SQ SCH (08:12)
[2017-07-09] MEDS: FAMOTIDINE 20 MG TAB PO SCH ×2 (08:12→20:22)
[2017-07-09] MEDS: BUDESONIDE 1 MG/2 ML NEBU INHALATION SCH ×2 (08:18→20:28)
[2017-07-09] MEDS: IPRATROPIUM-ALBUTEROL 3 ML NEB INHALATION SCH ×4 (08:21→20:28)
[2017-07-09 12:12] LABS: Glucose,Whole Blood 156 mg/dL (75-99)
--- NOTE | 2017-07-09 14:21 | P.PN ---
Subjective Progress Note Date: 07/09/17 This is a 51 years old male with past medical history of COPD on 3 L of oxygen at home, hyperlipidemia, hypertension sees Dr. SUNSHINE from pulmonary comes in with increased congestion and shortness of breath for the past 3 days. He did does endorses congestion and wheezing . States his mother was sick and she lives with him. Patient was evaluated in the ER and was desaturating to 71% on room air with improvement of oxygen saturation on nasal cannula. On evaluation this morning patient is currently on BiPAP. Stat ABG was obtained with suggest a pH of 7.22, CO2 96, pO2 60. CBC was unremarkable this morning BMP suggested of chloride 87, carbon dioxide 40 creatinine 0.42 glucose 181. Patient initiated on IV Solu-Medrol 60 every 6 hours with DuoNeb's and Pulmicort. Dr. Magallon consulted. Patient is in impending respiratory failure and might need intubation if no improvement in next 24 hours. 07/08: Patient has been seen and followed by Dr. Magallon. Last evening patient was transferred into the intensive care unit due to ABG results and known history of intubation in the past. Patient has been maintained on BiPAP with pulse ox of 95%. He has been afebrile. Respirations are running in the 20s and 30s. Patient has had BiPAP settings adjusted and repeat ABG scheduled for 2 PM. Patient has only been off BiPAP for a few minutes he breakfast. He denies any chest pain. He states his cough is more productive now. He denies any nausea or vomiting. Influenza came back negative. 07/09: Repeat chest x-ray shows no acute process. Patient is now on nasal cannula 3 L and pulse oxing 95-96%. Respirations are in the 20s. Patient's pulse ox dropped to 88-90% with talking. He does state that he has been up to the bathroom. He denies any blood or black stools. He rare cough that is nonproductive. He denies any chest pain. [facility] if cleared by Dr. Magallon. He remains on Solu-Medrol 60 mg IV every 6 hours, Levaquin and DuoNeb treatments, Pulmicort. Objective - Vital Signs Vital signs: Vital Signs Temp 98.2 F 07/09/17 09:00 Pulse 68 07/09/17 11:43 Resp 22 07/09/17 11:12 BP 111/64 07/09/17 11:00 Pulse Ox 94 L 07/09/17 11:00 Intake & Output 07/08/17 07/09/17 07/09/17 18:59 06:59 18:59 Intake Total 1240 240 100 Output Total 600 150 350 Balance 640 90 -250 Weight 58.6 kg Intake: IV 190 240 100 0.9% NS 190 240 100 Intake, IV Titration 150 Amount Levofloxacin 750Mg-D5w 150 Pmx 750 mg In Dextrose/ Water 1 150ml.bag @ 100 mls/hr IVPB Q24H [facility] Rx#: [id number] Oral 900 Output: Urine 600 150 350 Other: Voiding Method Urinal Urinal Urinal - Exam General appearance: cooperative, in acute distress, seen in tripod position on BiPAP answering questions appropriately with good cognition - EENT Eyes: anicteric sclerae, PERRLA, normal appearance ENT: hearing grossly normal - Neck Neck: no lymphadenopathy, normal ROM, no other, no rigidity, no stridor, no thyromegaly - Respiratory Respiratory: bilateral: Decreased air entry with diffuse wheezing best heard in the right upper lobe - Cardiovascular Rhythm: regular Heart sounds: normal: S1, S2 Abnormal Heart Sounds: no systolic murmur, no diastolic murmur, no rub, no S3 Gallop, no S4 Gallop, no click, no other - Gastrointestinal General gastrointestinal: normal bowel sounds, soft - Integumentary Integumentary: no rash - Neurologic Neurologic: CNII-XII intact - Musculoskeletal Musculoskeletal: gait normal, strength equal bilaterally - Psychiatric Psychiatric: A&O x's 3, appropriate affect - Labs CBC & Chem 7: 07/09/17 04:38 07/09/17 04:38 Labs: Abnormal Lab Results - Last 24 Hours (Table) 07/08/17 07/08/17 07/08/17 Range/Units 14:02 17:05 20:49 WBC (3.8-10.6) k/uL RBC (4.30-5.90) m/uL Hgb (13.0-17.5) gm/dL Hct (39.0-53.0) % Neutrophils # (1.3-7.7) k/uL Lymphocytes # (1.0-4.8) k/uL ABG pH 7.33 L (7.35-7.45) ABG pCO2 80 H* (35-45) mmHg ABG pO2 70 L (83-108) mmHg ABG HCO3 42 H* (21-25) mmol/L ABG Total CO2 44 H (19-24) mmol/L ABG O2 Saturation (94-97) % Chloride (98-107) mmol/L Carbon Dioxide (22-30) mmol/L BUN (9-20) mg/dL Creatinine (0.66-1.25) mg/dL Glucose (74-99) mg/dL POC Glucose (mg/dL) 159 H 121 H (75-99) mg/dL Total Bilirubin (0.2-1.3) mg/dL AST (17-59) U/L Total Protein (6.3-8.2) g/dL Albumin (3.5-5.0) g/dL 07/09/17 07/09/17 07/09/17 Range/Units 04:38 04:38 05:46 WBC 14.3 H (3.8-10.6) k/uL RBC 4.00 L (4.30-5.90) m/uL Hgb 12.3 L (13.0-17.5) gm/dL Hct 38.9 L (39.0-53.0) % Neutrophils # 12.2 H (1.3-7.7) k/uL Lymphocytes # 0.9 L (1.0-4.8) k/uL ABG pH (7.35-7.45) ABG pCO2 70 H* (35-45) mmHg ABG pO2 (83-108) mmHg ABG HCO3 42 H* (21-25) mmol/L ABG Total CO2 44 H (19-24) mmol/L ABG O2 Saturation 97.3 H (94-97) % Chloride 94 L (98-107) mmol/L Carbon Dioxide 39 H (22-30) mmol/L BUN 23 H (9-20) mg/dL Creatinine 0.40 L (0.66-1.25) mg/dL Glucose 145 H (74-99) mg/dL POC Glucose (mg/dL) (75-99) mg/dL Total Bilirubin 0.1 L (0.2-1.3) mg/dL AST 13 L (17-59) U/L Total Protein 5.4 L (6.3-8.2) g/dL Albumin 3.2 L (3.5-5.0) g/dL 07/09/17 Range/Units 07:10 WBC (3.8-10.6) k/uL RBC (4.30-5.90) m/uL Hgb (13.0-17.5) gm/dL Hct (39.0-53.0) % Neutrophils # (1.3-7.7) k/uL Lymphocytes # (1.0-4.8) k/uL ABG pH (7.35-7.45) ABG pCO2 (35-45) mmHg ABG pO2 (83-108) mmHg ABG HCO3 (21-25) mmol/L ABG Total CO2 (19-24) mmol/L ABG O2 Saturation (94-97) % Chloride (98-107) mmol/L Carbon Dioxide (22-30) mmol/L BUN (9-20) mg/dL Creatinine (0.66-1.25) mg/dL Glucose (74-99) mg/dL POC Glucose (mg/dL) 151 H (75-99) mg/dL Total Bilirubin (0.2-1.3) mg/dL AST (17-59) U/L Total Protein (6.3-8.2) g/dL Albumin (3.5-5.0) g/dL Microbiology - Last 24 Hours (Table) 07/07/17 09:20 Blood Culture - Preliminary Blood No Growth after 48 hours Assessment and Plan Plan: 1. Acute hypoxic hypercapnic respiratory failure secondary to COPD exacerbation. Continue Solu-Medrol IV 60 mg every 6 hours , DuoNeb treatments 4 times daily, Pulmicort 1 mg twice daily, Levaquin 750 mg daily, continue O2 nasal cannula and BiPAP as needed. Consult with Dr. Sherita kirkland. Sputum culture remains on collected. Patient transferred into the intensive care unit. Incentive spirometry 2. Hypertension continue losartan 50 mg daily 3. Hyperlipidemia continue Lipitor 10 mg at bedtime 4. Tobacco abuse. Patient counseled on smoking cessation, understands that he should not be smoking and wearing oxygen. Plans to continue despite counseling 5. Code status full code 6. GI prophylaxis with Pepcid 20 mg twice a day 7. DVT prophylaxis with Lovenox 40 subcu daily Discharge plan: Most likely return home in the next 24 hours Impression and plan of care have been directed as dictated by the signing physician. [employer] nurse practitioner acting as scribe for signing physician.
[2017-07-09] MEDS: LEVOFLOXACIN 750MG-D5W PMX 750 MG in DEXTROSE/WATER 1 150ML.BAG IVPB SCH (14:27)
--- NOTE | 2017-07-09 15:06 | P.PN ---
Subjective Progress Note Date: 07/09/17 Principal diagnosis: Acute hypoxic and hypercapnic respirator failure, acute COPD exacerbation, purulent tracheobronchitis, extensive history of smoking and nicotine use, hypertension hypertensive cardiovascular disease, dyslipidemia 07/09/2017, patient seen eval examined during rounds clinically doing well awake and alert breathing comfortably patient is now taken off of BiPAP on 3 L oxygen arterial blood gases this morning reviewed and compared with the prior blood gases significant improvement and oxygenation ventilation and pH has been noted in addition to that x-ray and the labs are reviewed which remains stable it appears that patient has significant baseline hypercapnia with a baseline CO2 possibly ranged between 65-70 07/08/2017, patient seen eval reexamined in the ICU patient has been moved from selective care due to persistent hypercapnia and severe profound respiratory acidosis patient remains tachypneic and tachycardic the BiPAP setting is being adjusted now being switched to 15/10 with IPAP and EPAP oxygen is brought down to 35% will repeat another arterial blood gas later on today we'll keep patient in ICU for another 24 hours as respiratory status remains marginal with a significant history of the prior intubation and prolonged ventilator support. Laboratory data reviewed radiographic studies as well as arterial blood gases and medications reviewed as well care plan discussed with the staff as well as respiratory therapy and patient. Patient remains tachypneic tachycardic and short of breath has the however been able to finish out full sentences then has to stop due to breathing difficulty still have cough predominantly dry nonproductive 51-year-old male with the history of end-stage lung disease and severe COPD emphysema still smoking a pack a day patient started having progressive increased shortness breath for almost one week however started coughing about 5 days ago cough has been associated with thick greenish sputum patient the continue to have progressive worsening of shortness of breath up to a point that he couldn't smoke or inhale, decided to come into the emergency department for further evaluation he was found to have severe degree of hypercapnic hypoxic respirator failure his preliminary arterial blood gas performed in the emergency department revealed pH of 7.22, PaCO2 of 96, PA O2 of 60, patient has been placed on BiPAP machine currently during evaluation he was on IPAP with IPAP of 12 and EPAP of 6 sets respiratory rate of 16 and 40% oxygen he was breathing in 30s difficulty in completing the sentences though but overall on specific questioning he feels the severity of shortness of breath has improved slightly compared to the time of arrival, on specific questioning he denies any seizure activity loss of consciousness), denies any chest pain neck sips some chest tightness, does have cough associated with sputum production denies any hemoptysis, denies any nausea vomiting diarrhea, denies any bowel or bladder dysfunction Objective - Vital Signs Vital signs: Vital Signs Temp 98.0 F 07/09/17 12:00 Pulse 71 07/09/17 14:00 Resp 21 07/09/17 14:00 BP 101/60 07/09/17 14:00 Pulse Ox 95 07/09/17 14:00 Intake & Output 07/08/17 07/09/17 07/09/17 18:59 06:59 18:59 Intake Total 1240 240 160 Output Total 600 150 600 Balance 640 90 -440 Weight 58.6 kg Intake: IV 190 240 160 0.9% NS 190 240 160 Intake, IV Titration 150 Amount Levofloxacin 750Mg-D5w 150 Pmx 750 mg In Dextrose/ Water 1 150ml.bag @ 100 mls/hr IVPB Q24H [facility] Rx#: [id number] Oral 900 Output: Urine 600 150 600 Other: Voiding Method Urinal Urinal Urinal - Exam - Constitutional General appearance: cooperative, in acute distress, sitting upright position on BiPAP answering questions appropriately with good cognition however have difficult time and completing the sentences - EENT Eyes: anicteric sclerae, PERRLA, normal appearance ENT: hearing grossly normal - Neck Neck: no lymphadenopathy, normal ROM, no other, no rigidity, no stridor, no thyromegaly - Respiratory Respiratory: bilateral poor air entry with fine diffuse wheezing , exam overall improved compared to yesterday - Cardiovascular Rhythm: regular Heart sounds: normal: S1, S2 Abnormal Heart Sounds: no systolic murmur, no diastolic murmur, no rub, no S3 Gallop, no S4 Gallop, no click, no other - Gastrointestinal General gastrointestinal: normal bowel sounds, soft - Integumentary Integumentary: no rash - Neurologic Neurologic: CNII-XII intact, overall normal neurologic examination - Musculoskeletal Musculoskeletal: gait normal, strength equal bilaterally - Psychiatric Psychiatric: A&O x's 3, appropriate affect - Labs CBC & Chem 7: 07/09/17 04:38 04/26/18 04:38 Labs: Abnormal Lab Results - Last 24 Hours (Table) 07/08/17 07/08/17 07/09/17 Range/Units 17:05 20:49 04:38 WBC 14.3 H (3.8-10.6) k/uL RBC 4.00 L (4.30-5.90) m/uL Hgb 12.3 L (13.0-17.5) gm/dL Hct 38.9 L (39.0-53.0) % Neutrophils # 12.2 H (1.3-7.7) k/uL Lymphocytes # 0.9 L (1.0-4.8) k/uL ABG pCO2 (35-45) mmHg ABG HCO3 (21-25) mmol/L ABG Total CO2 (19-24) mmol/L ABG O2 Saturation (94-97) % Chloride (98-107) mmol/L Carbon Dioxide (22-30) mmol/L BUN (9-20) mg/dL Creatinine (0.66-1.25) mg/dL Glucose (74-99) mg/dL POC Glucose (mg/dL) 159 H 121 H (75-99) mg/dL Total Bilirubin (0.2-1.3) mg/dL AST (17-59) U/L Total Protein (6.3-8.2) g/dL Albumin (3.5-5.0) g/dL 07/09/17 07/09/17 07/09/17 Range/Units 04:38 05:46 07:10 WBC (3.8-10.6) k/uL RBC (4.30-5.90) m/uL Hgb (13.0-17.5) gm/dL Hct (39.0-53.0) % Neutrophils # (1.3-7.7) k/uL Lymphocytes # (1.0-4.8) k/uL ABG pCO2 70 H* (35-45) mmHg ABG HCO3 42 H* (21-25) mmol/L ABG Total CO2 44 H (19-24) mmol/L ABG O2 Saturation 97.3 H (94-97) % Chloride 94 L (98-107) mmol/L Carbon Dioxide 39 H (22-30) mmol/L BUN 23 H (9-20) mg/dL Creatinine 0.40 L (0.66-1.25) mg/dL Glucose 145 H (74-99) mg/dL POC Glucose (mg/dL) 151 H (75-99) mg/dL Total Bilirubin 0.1 L (0.2-1.3) mg/dL AST 13 L (17-59) U/L Total Protein 5.4 L (6.3-8.2) g/dL Albumin 3.2 L (3.5-5.0) g/dL 07/09/17 Range/Units 12:09 WBC (3.8-10.6) k/uL RBC (4.30-5.90) m/uL Hgb (13.0-17.5) gm/dL Hct (39.0-53.0) % Neutrophils # (1.3-7.7) k/uL Lymphocytes # (1.0-4.8) k/uL ABG pCO2 (35-45) mmHg ABG HCO3 (21-25) mmol/L ABG Total CO2 (19-24) mmol/L ABG O2 Saturation (94-97) % Chloride (98-107) mmol/L Carbon Dioxide (22-30) mmol/L BUN (9-20) mg/dL Creatinine (0.66-1.25) mg/dL Glucose (74-99) mg/dL POC Glucose (mg/dL) 156 H (75-99) mg/dL Total Bilirubin (0.2-1.3) mg/dL AST (17-59) U/L Total Protein (6.3-8.2) g/dL Albumin (3.5-5.0) g/dL Microbiology - Last 24 Hours (Table) 07/07/17 09:20 Blood Culture - Preliminary Blood No Growth after 48 hours Assessment and Plan Assessment: Acute hypoxic and hypercapnic respirator failure Left lower lobe pneumonia Acute COPD exacerbation Severe pulmonary hypertension likely related to end-stage lung disease due to severe COPD emphysema Purulent tracheobronchitis Extensive history of smoking and nicotine use Prior history of respirator failure requiring ventilator support Plan: Gentle rehydration BiPAP use each night and when necessary during the day Patient can be moved out of the ICU IV antibiotics and IV steroids Breathing treatments DVT and peptic ulcer disease prophylaxis Sliding scale for hyperglycemia Deep breathing exercise incentive spirometry as tolerated Time with Patient: Greater than 30
[2017-07-09 17:32] LABS: Glucose,Whole Blood 146 mg/dL (75-99)
[2017-07-09 20:39] LABS: Glucose,Whole Blood 130 mg/dL (75-99)
[2017-07-10] MEDS: methylPREDNISolone SOD SUCCI 125 MG/2 ML VIAL IV SCH (06:17)
[2017-07-10 06:26] VITALS: BP 122/66; TEMP 98
[2017-07-10 06:51] LABS: Glucose,Whole Blood 128 mg/dL (75-99)
[2017-07-10] MEDS: INSULIN ASPART 100 UNIT/ML 1 ML 10 ML VIAL SQ SCH ×2 (07:43→12:49)
[2017-07-10] MEDS: IPRATROPIUM-ALBUTEROL 3 ML NEB INHALATION SCH ×2 (07:49→12:01)
[2017-07-10] MEDS: BUDESONIDE 1 MG/2 ML NEBU INHALATION SCH (07:49)
[2017-07-10] MEDS: FAMOTIDINE 20 MG TAB PO SCH (09:18)
[2017-07-10] MEDS: ENOXAPARIN 40 MG/0.4 ML SYRINGE SQ SCH (09:18)
--- NOTE | 2017-07-10 09:19 | P.PN ---
Subjective Progress Note Date: 07/10/17 Principal diagnosis: Acute hypoxic and hypercapnic respirator failure, acute COPD exacerbation, purulent tracheobronchitis, extensive history of smoking and nicotine use, hypertension hypertensive cardiovascular disease, dyslipidemia 07/10/2017, patient seen and evaluated examined doing well patient has been using his oxygen he is back to baseline 3 L he has refused BiPAP machine use any more his cuff congestion shortness breath is almost back to baseline labs reviewed medications reviewed 07/09/2017, patient seen eval examined during rounds clinically doing well awake and alert breathing comfortably patient is now taken off of BiPAP on 3 L oxygen arterial blood gases this morning reviewed and compared with the prior blood gases significant improvement and oxygenation ventilation and pH has been noted in addition to that x-ray and the labs are reviewed which remains stable it appears that patient has significant baseline hypercapnia with a baseline CO2 possibly ranged between 65-70 07/08/2017, patient seen eval reexamined in the ICU patient has been moved from selective care due to persistent hypercapnia and severe profound respiratory acidosis patient remains tachypneic and tachycardic the BiPAP setting is being adjusted now being switched to 15/10 with IPAP and EPAP oxygen is brought down to 35% will repeat another arterial blood gas later on today we'll keep patient in ICU for another 24 hours as respiratory status remains marginal with a significant history of the prior intubation and prolonged ventilator support. Laboratory data reviewed radiographic studies as well as arterial blood gases and medications reviewed as well care plan discussed with the staff as well as respiratory therapy and patient. Patient remains tachypneic tachycardic and short of breath has the however been able to finish out full sentences then has to stop due to breathing difficulty still have cough predominantly dry nonproductive 51-year-old male with the history of end-stage lung disease and severe COPD emphysema still smoking a pack a day patient started having progressive increased shortness breath for almost one week however started coughing about 5 days ago cough has been associated with thick greenish sputum patient the continue to have progressive worsening of shortness of breath up to a point that he couldn't smoke or inhale, decided to come into the emergency department for further evaluation he was found to have severe degree of hypercapnic hypoxic respirator failure his preliminary arterial blood gas performed in the emergency department revealed pH of 7.22, PaCO2 of 96, PA O2 of 60, patient has been placed on BiPAP machine currently during evaluation he was on IPAP with IPAP of 12 and EPAP of 6 sets respiratory rate of 16 and 40% oxygen he was breathing in 30s difficulty in completing the sentences though but overall on specific questioning he feels the severity of shortness of breath has improved slightly compared to the time of arrival, on specific questioning he denies any seizure activity loss of consciousness), denies any chest pain neck sips some chest tightness, does have cough associated with sputum production denies any hemoptysis, denies any nausea vomiting diarrhea, denies any bowel or bladder dysfunction Objective - Vital Signs Vital signs: Vital Signs Temp 98.0 F 07/10/17 05:43 Pulse 70 07/10/17 05:43 Resp 18 07/10/17 05:43 BP 122/66 07/10/17 05:43 Pulse Ox 94 L 07/10/17 05:43 Intake & Output 07/09/17 07/10/17 07/10/17 18:59 06:59 18:59 Intake Total 200 Output Total 600 Balance -400 Intake: IV 200 0.9% NS 200 Output: Urine 600 Other: Voiding Method Urinal Urinal # Voids 2 - Exam - Constitutional General appearance: cooperative, in acute distress, sitting upright position on BiPAP answering questions appropriately with good cognition however have difficult time and completing the sentences - EENT Eyes: anicteric sclerae, PERRLA, normal appearance ENT: hearing grossly normal - Neck Neck: no lymphadenopathy, normal ROM, no other, no rigidity, no stridor, no thyromegaly - Respiratory Respiratory: bilateral poor air entry with fine diffuse wheezing , exam overall improved compared to yesterday - Cardiovascular Rhythm: regular Heart sounds: normal: S1, S2 Abnormal Heart Sounds: no systolic murmur, no diastolic murmur, no rub, no S3 Gallop, no S4 Gallop, no click, no other - Gastrointestinal General gastrointestinal: normal bowel sounds, soft - Integumentary Integumentary: no rash - Neurologic Neurologic: CNII-XII intact, overall normal neurologic examination - Musculoskeletal Musculoskeletal: gait normal, strength equal bilaterally - Psychiatric Psychiatric: A&O x's 3, appropriate affect - Labs CBC & Chem 7: 07/09/17 04:38 07/09/17 04:38 Labs: Abnormal Lab Results - Last 24 Hours (Table) 07/09/17 07/09/17 07/09/17 Range/Units 12:09 17:24 20:38 POC Glucose (mg/dL) 156 H 146 H 130 H (75-99) mg/dL 07/10/17 Range/Units 06:49 POC Glucose (mg/dL) 128 H (75-99) mg/dL Microbiology - Last 24 Hours (Table) 07/07/17 09:20 Blood Culture - Preliminary Blood No Growth after 48 hours Assessment and Plan Assessment: Acute hypoxic and hypercapnic respirator failure Left lower lobe pneumonia Acute COPD exacerbation Severe pulmonary hypertension likely related to end-stage lung disease due to severe COPD emphysema Purulent tracheobronchitis Extensive history of smoking and nicotine use Prior history of respirator failure requiring ventilator support Plan: Gentle rehydration We'll DC the BiPAP as patient does not want to use it Patient can be discharged from pulmonary standpoint if remains stable on oral antibiotics and oral tapering steroids, patient has been consult about smoking cessation Breathing treatments DVT and peptic ulcer disease prophylaxis Sliding scale for hyperglycemia Deep breathing exercise incentive spirometry as tolerated Time with Patient: Greater than 30
[2017-07-10 09:34] LABS: Basophils % (A) 0 %; Eosinophils % (A) 0 %; HCT 39.6 % (39.0-53.0); HGB 12.8 gm/dL (13.0-17.5); Lymphocytes % (A) 7 %; MCH 31.2 pg (25.0-35.0); MCHC 32.3 g/dL (31.0-37.0); MCV 96.4 fL (80.0-100.0); Mean Platelet Volume 6.6; Monocytes # (A) 0.4 k/uL (0-1.0); Monocytes % (A) 3 %; Neutrophils # (A) 12.8 k/uL (1.3-7.7); Neutrophils % (A) 89 %; Platelet Count 340 k/uL (150-450); RBC 4.11 m/uL (4.30-5.90); WBC 14.4 k/uL (3.8-10.6)
[2017-07-10 09:47] LABS: ALT 16 U/L (21-72); AST 11 U/L (17-59); Albumin 3.2 g/dL (3.5-5.0); Alkaline Phosphatase 50 U/L (38-126); Blood Urea Nitrogen 24 mg/dL (9-20); Calcium 9.8 mg/dL (8.4-10.2); Chloride 92 mmol/L (98-107); Glucose 176 mg/dL (74-99); Phosphorus 3.2 mg/dL (2.5-4.5); Potassium 4.8 mmol/L (3.5-5.1); Sodium 141 mmol/L (137-145); Total Bilirubin <0.1 mg/dL (0.2-1.3); Total Protein 5.3 g/dL (6.3-8.2)
[2017-07-10 09:53] LABS: Anion Gap 5 mmol/L
[2017-07-10 10:05] LABS: Carbon Dioxide 44 mmol/L (22-30)
[2017-07-10 11:51] LABS: Glucose,Whole Blood 132 mg/dL (75-99)
--- NOTE | 2017-07-10 11:59 | XR ---
EXAMINATION TYPE: XR chest 1V DATE OF EXAM: 07/10/2017 COMPARISON: 07/09/2017 HISTORY: Cough TECHNIQUE: Single frontal view of the chest is obtained. FINDINGS: There is no focal air space opacity, pleural effusion, or pneumothorax seen. The cardiac silhouette size is within normal limits. The osseous structures are intact. Hyperinflation suggests COPD. Arthropathy of the AC joints. Heart size stable. No overt failure. IMPRESSION: No acute process.
[2017-07-10 13:35] VITALS: PULSE 83; RESP 14
[2017-07-10] MEDS ORDERED: methylPREDNISolone SOD SUCCI 40 MG/ML 1 ML VIAL IV SCH (14:00)
[2017-07-10] MEDS ORDERED: LEVOFLOXACIN 750 MG TAB PO SCH (14:00)
--- NOTE | 2017-07-13 10:18 | P.DS ---
Providers Date of admission: 07/07/17 10:29 Expected date of discharge: 07/10/17 Attending physician: Jame Root Consults: 07/07/17 10:30 Consult Physician Routine Consulting Provider: Ravindra Magallon Consult Reason/Comments: known Do you want consulting provider notified?: Yes Primary care physician: [facility] [facility] Course: This is a 51 years old male with past medical history of COPD on 3 L of oxygen at home, hyperlipidemia, hypertension sees Dr. SUNSHINE from pulmonary comes in with increased congestion and shortness of breath for the past 3 days. He did does endorses congestion and wheezing . States his mother was sick and she lives with him. Patient was evaluated in the ER and was desaturating to 71% on room air with improvement of oxygen saturation on nasal cannula. On evaluation this morning patient is currently on BiPAP. Stat ABG was obtained with suggest a pH of 7.22, CO2 96, pO2 60. CBC was unremarkable this morning BMP suggested of chloride 87, carbon dioxide 40 creatinine 0.42 glucose 181. Patient initiated on IV Solu-Medrol 60 every 6 hours with DuoNeb's and Pulmicort. Dr. Magallon consulted. Patient is in impending respiratory failure and might need intubation if no improvement in next 24 hours. 07/08: Patient has been seen and followed by Dr. Magallon. Last evening patient was transferred into the intensive care unit due to ABG results and known history of intubation in the past. Patient has been maintained on BiPAP with pulse ox of 95%. He has been afebrile. Respirations are running in the 20s and 30s. Patient has had BiPAP settings adjusted and repeat ABG scheduled for 2 PM. Patient has only been off BiPAP for a few minutes he breakfast. He denies any chest pain. He states his cough is more productive now. He denies any nausea or vomiting. Influenza came back negative. 07/09: Repeat chest x-ray shows no acute process. Patient is now on nasal cannula 3 L and pulse oxing 95-96%. Respirations are in the 20s. Patient's pulse ox dropped to 88-90% with talking. He does state that he has been up to the bathroom. He denies any blood or black stools. He rare cough that is nonproductive. He denies any chest pain. Patient will be transferred to MedSurg floor if cleared by Dr. Magallon. He remains on Solu-Medrol 60 mg IV every 6 hours, Levaquin and DuoNeb treatments, Pulmicort. 07/10: Patient continues to have a cough that is nonproductive. He has been afebrile and pulse ox is 93% on 3 L nasal cannula. Patient is anxious to go home today. Patient will be discharged home in stable condition. Discharge Diagnoses: 1. Acute hypoxic hypercapnic respiratory failure secondary to COPD exacerbation. 2. Hypertension 3. Hyperlipidemia 4. Tobacco abuse. Discharge plan: Most likely return home in the next 24 hours Impression and plan of care have been directed as dictated by the signing physician. [employer] nurse practitioner acting as scribe for signing physician. Patient Condition at Discharge: Good Plan - Discharge Summary Discharge Rx Participant: No New Discharge Prescriptions: New Famotidine [Pepcid] 20 mg PO BID #14 tab Levofloxacin [Levaquin] 750 mg PO Q24H #4 tab predniSONE 10 mg PO DAILY #63 tab Continue Ipratropium-Albuterol Nebulize [Duoneb 0.5 mg-3 mg/3 ml Soln] 3 ml INHALATION RT-QID #120 ampul.neb Losartan [Cozaar] 50 mg PO DAILY Beclomethasone Dipropionate [Qvar 80 mcg] 1 puff INHALATION RT-BID Atorvastatin Calcium [Lipitor] 10 mg PO HS Discharge Medication List Ipratropium-Albuterol Nebulize [Duoneb 0.5 mg-3 mg/3 ml Soln] 3 ml INHALATION RT -QID #120 ampul.neb 08/20/15 [Rx] Atorvastatin Calcium [Lipitor] 10 mg PO HS 07/07/17 [History] Beclomethasone Dipropionate [Qvar 80 mcg] 1 puff INHALATION RT-BID 07/07/17 [ History] Losartan [Cozaar] 50 mg PO DAILY 07/07/17 [History] Famotidine [Pepcid] 20 mg PO BID #14 tab 07/10/17 [Rx] Levofloxacin [Levaquin] 750 mg PO Q24H #4 tab 07/10/17 [Rx] predniSONE 10 mg PO DAILY #63 tab 07/10/17 [Rx] Follow up Appointment(s)/Referral(s): Fabien Plata DO [Primary Care Provider] - 07/17/17 ( April from office will call you with appointment time. ) Ravindra Magallon MD [STAFF PHYSICIAN] - 1 Week (Office currently closed for lunch. Please call to schedule appointment. ) Patient Instructions/Handouts: COPD (Chronic Obstructive Pulmonary Disease) (DC ) Activity/Diet/Wound Care/Special Instructions: Low fat diet. NO smoking, cessation information provided. Activity as tolerated. Oxygen as at home to keep sats greater than 94%. Discharge Disposition: HOME SELF-CARE
== END 2017-07-10 14:20 | disposition home or self-care (01) | DRG 190 ==
LOC: EC 09:07 → 4MS4W 10:29 → 6SEL 11:54 → 6ICU 20:50 → 4MS4W 07-09 16:40
PROVIDERS: ADMIT Internal Medicine; ATTEND Internal Medicine
PROC: 5A09457 Assistance with Respiratory Ventilation, 24-96 Consecutive Hours, Continuous Positive Airway Pressure (ICD-10-PCS; principal; 2017-07-07)
DX: J44.0 Chronic obstructive pulmonary disease with (acute) lower respiratory infection (principal); J96.01 Acute respiratory failure with hypoxia; J18.9 Pneumonia, unspecified organism; J96.02 Acute respiratory failure with hypercapnia; E87.2 Acidosis; J44.1 Chronic obstructive pulmonary disease with (acute) exacerbation; I27.23 Pulmonary hypertension due to lung diseases and hypoxia; Z99.81 Dependence on supplemental oxygen; I11.9 Hypertensive heart disease without heart failure; E78.5 Hyperlipidemia, unspecified; F17.210 Nicotine dependence, cigarettes, uncomplicated; Z71.6 Tobacco abuse counseling; Z79.51 Long term (current) use of inhaled steroids; Z79.899 Other long term (current) drug therapy; Z82.49 Family history of ischemic heart disease and other diseases of the circulatory system; Z82.61 Family history of arthritis
CPT/HCPCS: 36415; 36600; 71045; 80053; 82550; 82553; 82805; 83036; 83735; 83880; 84100; 84484; 85025; 85027; 85610; 85730; 87040; 87502; 93005; 94640; 94644; 94660; 94760; 96361; 96365; 96366; 96375; 99291

== ENCOUNTER 2018-09-16 18:00 | Inpatient (IN) | payer MEDICARE ==
[2018-09-16] MEDS ORDERED: ALBUTEROL NEBULIZED 2.5 MG/3 ML INHALATION STA (18:06)
[2018-09-16] MEDS ORDERED: IPRATROPIUM 0.5 MG/2.5 ML NEBU INHALATION STA (18:06)
--- NOTE | 2018-09-16 18:11 | ED ---
General Adult HPI - General Stated complaint: Diff Breathing Time Seen by Provider: 09/16/18 18:06 Source: patient, EMS, RN notes reviewed, old records reviewed Mode of arrival: EMS Limitations: no limitations - History of Present Illness Initial comments: 53 -year-old male history of COPD currently on home oxygen presents in severe respiratory distress. History is obtained from EMS with limited history from the patient. He was found to be hypoxic with initial oxygen saturation at 40%. He was confused. He was immediately placed on CPAP by EMS during transport his oxygenation did improve into the 80s and he regained consciousness, he is alert at the time of arrival. Severe respiratory distress but able to answer simple questions. He denies pain. Denies fever. States he has been sick for approximately 5 days. With worsening cough and dyspnea. - Related Data Home Medications Medication Instructions Recorded Confirmed Atorvastatin Calcium [Lipitor] 10 mg PO HS 07/07/17 09/16/18 Beclomethasone Dipropionate [Qvar 1 puff INHALATION RT-BID 07/07/17 09/16/18 80 mcg] Losartan [Cozaar] 50 mg PO DAILY 07/07/17 09/16/18 Previous Rx's Medication Instructions Recorded Ipratropium-Albuterol Nebulize 3 ml INHALATION RT-QID #120 08/20/15 [Duoneb 0.5 mg-3 mg/3 ml Soln] ampul.neb Famotidine [Pepcid] 20 mg PO BID #14 tab 07/10/17 Allergies Allergy/AdvReac Type Severity Reaction Status Date / Time No Known Allergies Allergy Verified 09/16/18 18:11 Review of Systems ROS Statement: Those systems with pertinent positive or pertinent negative responses have been documented in the HPI. ROS Other: All systems not noted in ROS Statement are negative. Past Medical History Past Medical History: COPD, Hyperlipidemia, Hypertension Additional Past Medical History / Comment(s): Respiratory failure and has been vented, home O2 at 3L/NC lately ATC but normally at HS only, denies any hx of PR. History of Any Multi-Drug Resistant Organisms: None Reported Past Surgical History: Unable to Obtain, Hernia Repair, Orthopedic Surgery Additional Past Surgical History / Comment(s): R knee arthroscopy, R inguinal hernia repair. Past Anesthesia/Blood Transfusion Reactions: No Reported Reaction Past Psychological History: No Psychological Hx Reported Smoking Status: Current every day smoker - Past Family History Mother Family Medical History: Coronary Artery Disease (CAD), Osteoarthritis (OA) Additional Family Medical History / Comment(s): Mother had CABG. She is 85 yrs old. Father Family Medical History: No Reported History Additional Family Medical History / Comment(s): Father is healthy and in his 80s. General Exam Limitations: no limitations General appearance: alert, in distress, cachectic Head exam: Present: atraumatic, normocephalic Eye exam: Present: normal appearance ENT exam: Present: mucous membranes dry Neck exam: Present: normal inspection. Absent: tenderness Respiratory exam: Present: decreased breath sounds Cardiovascular Exam: Present: normal rhythm, tachycardia GI/Abdominal exam: Present: soft. Absent: distended, tenderness Extremities exam: Present: normal inspection, normal capillary refill. Absent: pedal edema, calf tenderness Neurological exam: Present: alert. Absent: motor sensory deficit Skin exam: Present: warm, dry, intact. Absent: cyanosis, diaphoretic Course Vital Signs 09/16/18 09/16/18 09/16/18 18:05 18:06 18:20 Temperature 99.1 F Pulse Rate 111 H 105 H Respiratory 26 H 28 H Rate Blood Pressure 109/62 O2 Sat by Pulse 92 L Oximetry 09/16/18 09/16/18 19:07 19:10 Temperature Pulse Rate 108 H 84 Respiratory 24 Rate Blood Pressure 103/61 O2 Sat by Pulse 95 Oximetry EKG Findings - EKG Comments: EKG Findings:: EKG: Sinus tachycardia, right atrial enlargement, rate of 110, ID interval 122, QRS duration 88, QTC 424, no ST segment elevation. Medical Decision Making - Medical Decision Making 53-year-old male presenting for evaluation of cough and dyspnea. Patient was hypoxic by EMS, altered. He was placed on CPAP and had significant improvement upon arrival. Patient's significant CO2 retention, venous gas shows a CO2 of 95. He is continued on BiPAP with continued improvement in ventilation and mental status. He has a CBC showing a normal white blood cell count. He does have a lactic acid of 4.3 which I suspect is secondary to hypoxia. X-ray with concern for left lower lobe pneumonia. He is started on antibiotics, ceftriax one and azithromycin. He will be admitted for COPD exacerbation. Case is discussed with the admitting physician Dr. Orlando - Lab Data Result diagrams: 09/16/18 18:09 07/04/19 18:09 Lab Results 09/16/18 09/16/18 09/16/18 Range/Units 18:09 18:09 18:09 WBC 8.9 (3.8-10.6) k/uL RBC 3.59 L (4.30-5.90) m/uL Hgb 11.3 L (13.0-17.5) gm/dL Hct 36.6 L (39.0-53.0) % MCV 102.0 H (80.0-100.0) fL MCH 31.6 (25.0-35.0) pg MCHC 31.0 (31.0-37.0) g/dL RDW 13.4 (11.5-15.5) % Plt Count 157 (150-450) k/uL Neutrophils % 88 % Lymphocytes % 4 % Monocytes % 6 % Eosinophils % 1 % Basophils % 0 % Neutrophils # 7.8 H (1.3-7.7) k/uL Lymphocytes # 0.3 L (1.0-4.8) k/uL Monocytes # 0.5 (0-1.0) k/uL Eosinophils # 0.0 (0-0.7) k/uL Basophils # 0.0 (0-0.2) k/uL Hypochromasia Marked Macrocytosis Slight PT (9.0-12.0) sec INR (<1.2) APTT (22.0-30.0) sec VBG pH (7.31-7.41) VBG pCO2 (37-51) mmHg VBG HCO3 (24-28) mmol/L Sodium 141 (137-145) mmol/L Potassium 4.5 (3.5-5.1) mmol/L Chloride 83 L (98-107) mmol/L Carbon Dioxide 49 H* (22-30) mmol/L Anion Gap 9 mmol/L BUN 21 H (9-20) mg/dL Creatinine 0.40 L (0.66-1.25) mg/dL Est GFR (CKD-EPI)AfAm >90 (>60 ml/min/1.73 sqM) Est GFR (CKD-EPI)NonAf >90 (>60 ml/min/1.73 sqM) Glucose 138 H (74-99) mg/dL Plasma Lactic Acid Cornelius (0.7-2.0) mmol/L Calcium 9.3 (8.4-10.2) mg/dL Magnesium 1.7 (1.6-2.3) mg/dL Total Bilirubin 0.7 (0.2-1.3) mg/dL AST 67 H (17-59) U/L ALT 51 (21-72) U/L Alkaline Phosphatase 63 (38-126) U/L Troponin I (0.000-0.034) ng/mL NT-Pro-B Natriuret Pep 263 pg/mL Total Protein 6.3 (6.3-8.2) g/dL Albumin 4.1 (3.5-5.0) g/dL 09/16/18 09/16/18 09/16/18 Range/Units 18:09 18:09 18:09 WBC (3.8-10.6) k/uL RBC (4.30-5.90) m/uL Hgb (13.0-17.5) gm/dL Hct (39.0-53.0) % MCV (80.0-100.0) fL MCH (25.0-35.0) pg MCHC (31.0-37.0) g/dL RDW (11.5-15.5) % Plt Count (150-450) k/uL Neutrophils % % Lymphocytes % % Monocytes % % Eosinophils % % Basophils % % Neutrophils # (1.3-7.7) k/uL Lymphocytes # (1.0-4.8) k/uL Monocytes # (0-1.0) k/uL Eosinophils # (0-0.7) k/uL Basophils # (0-0.2) k/uL Hypochromasia Macrocytosis PT 10.2 (9.0-12.0) sec INR 0.9 (<1.2) APTT 24.8 (22.0-30.0) sec VBG pH (7.31-7.41) VBG pCO2 (37-51) mmHg VBG HCO3 (24-28) mmol/L Sodium (137-145) mmol/L Potassium (3.5-5.1) mmol/L Chloride (98-107) mmol/L Carbon Dioxide (22-30) mmol/L Anion Gap mmol/L BUN (9-20) mg/dL Creatinine (0.66-1.25) mg/dL Est GFR (CKD-EPI)AfAm (>60 ml/min/1.73 sqM) Est GFR (CKD-EPI)NonAf (>60 ml/min/1.73 sqM) Glucose (74-99) mg/dL Plasma Lactic Acid Cornelius 4.3 H* (0.7-2.0) mmol/L Calcium (8.4-10.2) mg/dL Magnesium (1.6-2.3) mg/dL Total Bilirubin (0.2-1.3) mg/dL AST (17-59) U/L ALT (21-72) U/L Alkaline Phosphatase (38-126) U/L Troponin I <0.012 (0.000-0.034) ng/mL NT-Pro-B Natriuret Pep pg/mL Total Protein (6.3-8.2) g/dL Albumin (3.5-5.0) g/dL 09/16/18 Range/Units 18:09 WBC (3.8-10.6) k/uL RBC (4.30-5.90) m/uL Hgb (13.0-17.5) gm/dL Hct (39.0-53.0) % MCV (80.0-100.0) fL MCH (25.0-35.0) pg MCHC (31.0-37.0) g/dL RDW (11.5-15.5) % Plt Count (150-450) k/uL Neutrophils % % Lymphocytes % % Monocytes % % Eosinophils % % Basophils % % Neutrophils # (1.3-7.7) k/uL Lymphocytes # (1.0-4.8) k/uL Monocytes # (0-1.0) k/uL Eosinophils # (0-0.7) k/uL Basophils # (0-0.2) k/uL Hypochromasia Macrocytosis PT (9.0-12.0) sec INR (<1.2) APTT (22.0-30.0) sec VBG pH 7.34 (7.31-7.41) VBG pCO2 95 H* (37-51) mmHg VBG HCO3 50 H (24-28) mmol/L Sodium (137-145) mmol/L Potassium (3.5-5.1) mmol/L Chloride (98-107) mmol/L Carbon Dioxide (22-30) mmol/L Anion Gap mmol/L BUN (9-20) mg/dL Creatinine (0.66-1.25) mg/dL Est GFR (CKD-EPI)AfAm (>60 ml/min/1.73 sqM) Est GFR (CKD-EPI)NonAf (>60 ml/min/1.73 sqM) Glucose (74-99) mg/dL Plasma Lactic Acid Cornelius (0.7-2.0) mmol/L Calcium (8.4-10.2) mg/dL Magnesium (1.6-2.3) mg/dL Total Bilirubin (0.2-1.3) mg/dL AST (17-59) U/L ALT (21-72) U/L Alkaline Phosphatase (38-126) U/L Troponin I (0.000-0.034) ng/mL NT-Pro-B Natriuret Pep pg/mL Total Protein (6.3-8.2) g/dL Albumin (3.5-5.0) g/dL Disposition Clinical Impression: Acute exacerbation of chronic obstructive pulmonary disease, Pneumonia Disposition: ADMITTED IP TO THIS [facility] Condition: Stable Is patient prescribed a controlled substance at d/c from ED?: No Referrals: Fabien Plata DO [Primary Care Provider] - 1-2 days Decision to Admit Reason: Admit from EC Decision Date: 09/16/18 Decision Time: 19:40
[2018-09-16 18:18] LABS: Basophils % (A) 0 %; Eosinophils % (A) 1 %; HCT 36.6 % (39.0-53.0); HGB 11.3 gm/dL (13.0-17.5); Hypochromasia Marked; Lymphocytes # (A) 0.3 k/uL (1.0-4.8); Lymphocytes % (A) 4 %; MCH 31.6 pg (25.0-35.0); Macrocytosis Slight; Mean Platelet Volume 8.5; Monocytes # (A) 0.5 k/uL (0-1.0); Monocytes % (A) 6 %; Neutrophils # (A) 7.8 k/uL (1.3-7.7); Neutrophils % (A) 88 %; Platelet Count 157 k/uL (150-450); RBC 3.59 m/uL (4.30-5.90); RDW 13.4 % (11.5-15.5); WBC 8.9 k/uL (3.8-10.6)
[2018-09-16 18:19] LABS: VBG PH 7.34 (7.31-7.41)
--- NOTE | 2018-09-16 18:22 | XR ---
EXAMINATION TYPE: XR chest 1V portable DATE OF EXAM: 09/16/2018 COMPARISON: 07/10/2017 HISTORY: Short of breath TECHNIQUE: Single frontal view of the chest is obtained. FINDINGS: There is patchy pulmonary interstitial and alveolar edema. Heart size is normal. There is pulmonary hyperinflation. Mediastinum is normal. There is no heart failure. Bony thorax is intact. IMPRESSION: There is new perihilar patchy pulmonary edema and worse in the left lower lobe compared to old exam. This could relate to acute pneumonia. There is underlying COPD.
[2018-09-16 18:28] LABS: ALT 51 U/L (21-72); AST 67 U/L (17-59); African American GFR (CKD) >90 (>60 ml/min/1.73 sqM); Albumin 4.1 g/dL (3.5-5.0); Alkaline Phosphatase 63 U/L (38-126); Blood Urea Nitrogen 21 mg/dL (9-20); Calcium 9.3 mg/dL (8.4-10.2); Chloride 83 mmol/L (98-107); Glucose 138 mg/dL (74-99); Magnesium 1.7 mg/dL (1.6-2.3); Potassium 4.5 mmol/L (3.5-5.1); Sodium 141 mmol/L (137-145); Total Bilirubin 0.7 mg/dL (0.2-1.3); Total Protein 6.3 g/dL (6.3-8.2)
[2018-09-16 18:32] LABS: INR 0.9 (<1.2); Partial Thromboplastin Time 24.8 sec (22.0-30.0); Prothrombin Time 10.2 sec (9.0-12.0)
[2018-09-16 18:34] LABS: Anion Gap 9 mmol/L
[2018-09-16 18:45] LABS: Carbon Dioxide 49 mmol/L (22-30)
[2018-09-16] MEDS ORDERED: SODIUM CHLORIDE 0.9% 500 ML 500 ML IV ONE ×2 (18:50→23:04)
[2018-09-16] MEDS ORDERED: cefTRIAXone IN SWFI 1,000 MG/10 ML SYRINGE IVP STA (19:33)
[2018-09-16] MEDS ORDERED: IPRATROPIUM-ALBUTEROL 3 ML NEB INHALATION PRN (19:33)
[2018-09-16] MEDS ORDERED: AZITHROMYCIN 500 MG in SODIUM CHLORIDE 0.9% 250 ML IVPB STA (19:33)
[2018-09-16] MEDS ORDERED: ALBUTEROL NEBULIZED 2.5 MG/3 ML INHALATION PRN (19:35)
[2018-09-16] MEDS: IPRATROPIUM-ALBUTEROL 3 ML NEB INHALATION SCH (20:07)
[2018-09-16] MEDS: SODIUM CHLORIDE 0.9% 1,000 ML IV SCH (20:37)
[2018-09-16] MEDS ORDERED: ACETAMINOPHEN TAB 325 MG TAB PO PRN (22:36)
[2018-09-16] MEDS: ATORVASTATIN 10 MG TAB PO SCH (22:43)
[2018-09-16] MEDS: methylPREDNISolone SOD SUCCI 125 MG/2 ML VIAL IV SCH (22:43)
[2018-09-17 05:56] LABS: Glucose,Whole Blood 161 mg/dL (75-99)
[2018-09-17] MEDS: INSULIN ASPART (NovoLOG) 100 UNIT/ML VIAL SQ SCH ×4 (06:39→21:52)
[2018-09-17] MEDS: methylPREDNISolone SOD SUCCI 125 MG/2 ML VIAL IV SCH ×3 (06:39→17:24)
[2018-09-17] MEDS ORDERED: RX INFO: IV CONTRAST WAS GIVEN 1 EACH MISC MISCELLANE PRN (08:02)
[2018-09-17] MEDS ORDERED: FUROSEMIDE 10 MG/ML 4 ML VIAL IV PRN (08:03)
--- NOTE | 2018-09-17 09:11 | CT ---
EXAMINATION TYPE: CT chest wo con DATE OF EXAM: 09/17/2018 COMPARISON: None HISTORY: pulmonary fibrosis, difficulty breathing CT DLP: 359.4 mGycm High-resolution noncontrast CT of the chest was performed with the patient in the prone and supine po sitions. Lung and mediastinal window settings are submitted. Centrilobular emphysema noted. Patchy infiltrate noted left lower lobe. Groundglass infiltrates by ba silar regions. Findings may reflect acute inflammatory process. There are small bilateral pleural eff usions. Subpleural nodular density left lower lobe image 1337 of measures 8.8 mm. No evidence for fib rosis. No evidence for bronchiectasis. IMPRESSION: 1. Basilar groundglass infiltrates with airspace infiltrate left lower lobe may reflect underlying pn eumonia. 2. Small bilateral pleural effusions. 3. 8.8 mm left lower lobe pulmonary nodule. Follow-up CT in 3 months is advised. 4. Centrilobular emphysema
[2018-09-17] MEDS: FAMOTIDINE 20 MG TAB PO SCH ×2 (09:17→20:54)
[2018-09-17] MEDS: NICOTINE 14MG/24HR PATCH TRANSDERM SCH (09:17)
[2018-09-17] MEDS: AZITHROMYCIN 500 MG in SODIUM CHLORIDE 0.9% 250 ML IVPB SCH (09:18)
[2018-09-17] MEDS: IPRATROPIUM-ALBUTEROL 3 ML NEB INHALATION SCH ×4 (09:30→20:57)
[2018-09-17] MEDS: BUDESONIDE 0.5 MG/2 ML NEBU INHALATION SCH ×2 (09:30→21:00)
--- NOTE | 2018-09-17 10:21 | P.HPIM ---
History of Present Illness H&P Date: 09/17/18 This is a 53-year-old male patient of Dr. Plata and Dr. Magallon with past medical history of COPD, chronic hypoxic respiratory failure on 3 L of oxygen at home, hyperlipidemia, hypertension, tobacco use and dependence. Patient complains of increasing shortness of breath and cough with clear sputum this been going on for 2 days. He denies having any fever. He is currently on home O2 at 3-1/2-4 L nasal cannula. He denies any lower extremity edema. He denies history of heart failure, FL, stroke. He denies any choking episodes. He does have a nebulizer home O2 and a portable tank at home. He does not have CPAP. Patient continues to smoke half a pack per day Patient came into [facility] emergency center for evaluation by EMS with a documented pulse ox dropped to 40% with mental status changes. He was placed on CPAP by EMS and oxygenation improved to the 80s as well as mental status. He was afebrile, heart rate 111, respirations 26, pulse ox 92 on oxyg en, blood pressure 109/62. CO2 49, EKG was a sinus tachycardia without acute ST changes. ProBNP 263. Lactic acid 4.3, troponin 0.012. Venous blood gas showed pH of 7.34, pCO2 95 and bicarbonate 50. Chest x-ray reveals new perihilar patchy pulmonary edema and worse in the left lower lobe compared to old exam. This could relate to acute pneumonia. There is underlying COPD. Patient was admitted to the cardiac stepdown unit and started on nebulizer treatments, Solu- Medrol. Subsequently, CT of the chest was requested that revealed basilar ground glass infiltrates with air space infiltrate left lower lobe a reflect underlying pneumonia. Small bilateral pleural effusions. 8.8 mm left lower lobe pulmonary nodule. Follow-up CT in 3 months advised. Centrilobular emphysema. Consult Dr. Magallon added. Review of Systems Constitutional: Denies chills, Denies fever, Denies lethargy, Denies malaise, Denies poor appetite, Denies weakness, Denies weight loss Eyes: denies decreased vision, denies diplopia, denies discharge, denies pain Ears: deny: decreased hearing Ears, nose, mouth and throat: Denies dental pain, Denies headache, Denies nasal discharge, Denies nose pain Cardiovascular: Denies chest pain, Denies decreased exercise tolerance, Denies edema, Denies high blood pressure, Denies irregular heart beat, Denies palpitations, Denies paroxysmal nocturnal dyspnea, Denies rapid heart beat, endorses shortness of breath Respiratory: Endorses cough with sputum, endorses dyspnea, endorses home oxygen, endorses wheezing Gastrointestinal: Denies abdominal pain, Denies change in bowel habits, Denies coffee ground emesis, Denies early satiety, Denies excessive gas, Denies heartburn, Denies hematemesis, Denies hematochezia, Denies loss of appetite, Denies nausea, Denies vomiting Genitourinary: Denies dysuria, Denies flank pain, Denies kidney stones, Denies menorrhagia, Denies urgency, Denies urinary frequency Musculoskeletal: Denies gait dysfunction, Denies limitation of motion, Denies morning stiffness, Denies muscle cramps Integumentary: Denies rash, Denies wounds, Denies brittle nails, Denies change in hair/nails, Denies darkening of skin Neurological: Denies balance difficulties, Denies change in speech, Denies double vision, Denies gait dysfunction, Denies loss of vision, Denies motor disturbance, Denies numbness, Denies paralysis, Denies paresthesias, Denies seizures Psychiatric: Denies anxiety, Denies depression Endocrine: Denies excessive sweating, Denies excessive thirst, Denies high blood sugars, Denies palpitations Hematologic/Lymphatic: Denies easy bruising, Denies lymphadenopathy Past Medical History Past Medical History: COPD, Hyperlipidemia, Hypertension, Pneumonia Additional Past Medical History / Comment(s): Respiratory failure and has been vented, home O2 at 4L/NC, denies any hx of FL. History of Any Multi-Drug Resistant Organisms: None Reported Past Surgical History: Hernia Repair, Orthopedic Surgery Additional Past Surgical History / Comment(s): R knee arthroscopy, R inguinal hernia repair. Past Anesthesia/Blood Transfusion Reactions: No Reported Reaction Past Psychological History: No Psychological Hx Reported Additional Psychological History / Comment(s): Pt resides with family. He has home O2 he normally uses at nite at 4 L He has a nebulizer. He drives. Smoking Status: Current every day smoker Past Alcohol Use History: Daily Additional Past Alcohol Use History / Comment(s): Pt started smoking in 1976 and continues to smoke a half pack a day. He does drink alcohol every couple days . The patient lives at home with his mother and there is a puppy in the home. Patient is a walker but does not use it. He has a nebulizer, home O2 on portable oxygen. No CPAP. Past Drug Use History: Marijuana Additional Drug Use History / Comment(s): Pt used to smoke marijuana daily but now only on occasion. - Past Family History Mother Family Medical History: Coronary Artery Disease (CAD), Osteoarthritis (OA) Additional Family Medical History / Comment(s): Mother had CABG. She is 86 yrs old. Father Family Medical History: No Reported History Additional Family Medical History / Comment(s): Father is healthy and in his 80s. Medications and Allergies Home Medications Medication Instructions Recorded Confirmed Type Ipratropium-Albuterol Nebulize 3 ml INHALATION RT-QID #120 08/20/15 09/16/18 Rx [Duoneb 0.5 mg-3 mg/3 ml Soln] ampul.neb Atorvastatin Calcium [Lipitor] 10 mg PO HS 07/07/17 09/16/18 History Beclomethasone Dipropionate [Qvar 1 puff INHALATION RT-BID 07/07/17 09/16/18 History 80 mcg] Losartan [Cozaar] 50 mg PO DAILY 07/07/17 09/16/18 History Famotidine [Pepcid] 20 mg PO BID #14 tab 07/10/17 09/16/18 Rx Allergies Allergy/AdvReac Type Severity Reaction Status Date / Time No Known Allergies Allergy Verified 09/16/18 18:11 Physical Exam Vitals: Vital Signs Temp Pulse Pulse Resp BP BP Pulse Ox 09/17/18 04:00 98.2 F 79 17 102/63 99 09/17/18 03:15 98 09/17/18 02:09 15 09/16/18 23:34 98.2 F 79 15 92/57 96 09/16/18 23:25 98 09/16/18 22:08 20 09/16/18 22:06 99.5 F 90 98/66 94 L 09/16/18 20:47 98.8 F 88 18 100/63 96 09/16/18 19:10 84 09/16/18 19:07 108 H 24 103/61 95 07/04/19 18:20 105 H 09/16/18 18:06 28 H 09/16/18 18:05 99.1 F 111 H 26 H 109/62 92 L Intake and Output 09/16/18 09/17/18 09/17/18 22:59 06:59 14:59 Intake Total 500 120 Output Total 300 Balance 500 -180 Intake: Intake, IV Titration 500 Amount Sodium Chloride 0.9% 500 500 ml 500 ml @ 999 mls/hr IV .Q31M ONE Rx#:[id number] Oral 120 Output: Urine 300 Other: Voiding Method Urinal # Voids 1 1 Weight 46.266 kg 43 kg - Constitutional General appearance: cooperative, in no acute distress - EENT Eyes: anicteric sclerae, PERRLA, normal appearance ENT: hearing grossly normal - Neck Neck: no lymphadenopathy, normal ROM, no other, no rigidity, no stridor, no thyromegaly - Respiratory Respiratory: Rhonchi on the right side with scattered wheezing, diminished on the left. - Cardiovascular Rhythm: regular Heart sounds: normal: S1, S2 Abnormal Heart Sounds: no systolic murmur, no diastolic murmur, no rub, no S3 Gallop, no S4 Gallop, no click, no other - Gastrointestinal General gastrointestinal: normal bowel sounds, soft - Integumentary Integumentary: no rash - Neurologic Neurologic: CNII-XII intact - Musculoskeletal Musculoskeletal: gait normal, strength equal bilaterally - Psychiatric Psychiatric: A&O x's 3, appropriate affect Results CBC & Chem 7: 09/16/18 18:09 09/16/18 18:09 Labs: Abnormal Lab Results - Last 24 Hours (Table) 09/16/18 09/16/18 09/16/18 Range/Units 18:09 18:09 18:09 RBC 3.59 L (4.30-5.90) m/uL Hgb 11.3 L (13.0-17.5) gm/dL Hct 36.6 L (39.0-53.0) % MCV 102.0 H (80.0-100.0) fL Neutrophils # 7.8 H (1.3-7.7) k/uL Lymphocytes # 0.3 L (1.0-4.8) k/uL VBG pCO2 (37-51) mmHg VBG HCO3 (24-28) mmol/L Chloride 83 L (98-107) mmol/L Carbon Dioxide 49 H* (22-30) mmol/L BUN 21 H (9-20) mg/dL Creatinine 0.40 L (0.66-1.25) mg/dL Glucose 138 H (74-99) mg/dL POC Glucose (mg/dL) (75-99) mg/dL Plasma Lactic Acid Cornelius 4.3 H* (0.7-2.0) mmol/L AST 67 H (17-59) U/L 09/16/18 09/16/18 09/17/18 Range/Units 18:09 22:18 05:54 RBC (4.30-5.90) m/uL Hgb (13.0-17.5) gm/dL Hct (39.0-53.0) % MCV (80.0-100.0) fL Neutrophils # (1.3-7.7) k/uL Lymphocytes # (1.0-4.8) k/uL VBG pCO2 95 H* (37-51) mmHg VBG HCO3 50 H (24-28) mmol/L Chloride (98-107) mmol/L Carbon Dioxide (22-30) mmol/L BUN (9-20) mg/dL Creatinine (0.66-1.25) mg/dL Glucose (74-99) mg/dL POC Glucose (mg/dL) 161 H (75-99) mg/dL Plasma Lactic Acid Cornelius 3.3 H* (0.7-2.0) mmol/L AST (17-59) U/L 09/17/18 Range/Units 06:00 RBC (4.30-5.90) m/uL Hgb (13.0-17.5) gm/dL Hct (39.0-53.0) % MCV (80.0-100.0) fL Neutrophils # (1.3-7.7) k/uL Lymphocytes # (1.0-4.8) k/uL VBG pCO2 (37-51) mmHg VBG HCO3 (24-28) mmol/L Chloride (98-107) mmol/L Carbon Dioxide (22-30) mmol/L BUN (9-20) mg/dL Creatinine (0.66-1.25) mg/dL Glucose (74-99) mg/dL POC Glucose (mg/dL) (75-99) mg/dL Plasma Lactic Acid Cornelius 0.6 L (0.7-2.0) mmol/L AST (17-59) U/L Thrombosis Risk Factor Assmnt - DVT/VTE Prophylaxis DVT/VTE Prophylaxis: Pharmacologic Prophylaxis ordered - Choose All That Apply Any of the Below Risk Factors Present?: Yes Each Factor Represents 1 point: Abnormal pulmonary function (COPD), Age 41-60 years, Serious lung disease incl. pneumonia (< 1month) Other Risk Factors: No Other congenital or acquired thrombophilia - If yes, enter type in comment: No Thrombosis Risk Factor Assessment Total Risk Factor Score: 3 Thrombosis Risk Factor Assessment Level: Moderate Risk Assessment and Plan Plan: 1. Acute on chronic hypoxic hypercapnic respiratory failure secondary to COPD exacerbation and left lower lobe pneumonia. Patient will be placed on azithromycin and ceftriaxone IV, DuoNeb treatments 4 times daily and every 4 hours as needed, Solu-Medrol 60 mg IV every 6 hours, Pulmicort 0.5 mg twice daily. Consult with Dr. Magallon. 2. Hypertension. Continue losartan 50 mg daily. 3. Hyperlipidemia. Continue Lipitor 10 mg at bedtime. 4. Tobacco use and dependence. Patient counseled regarding smoking cessation. Nicotine patch 14 mg daily. 5. CODE STATUS: Full code. 6. GI prophylaxis. Pepcid 20 mg twice daily. 7. DVT prophylaxis. Lovenox 40 mg subcu daily. Patient will be admitted to the hospital for a minimum of 2 night stay. Discharge plan: Most likely return home Impression and plan of care have been directed as dictated by the signing physician. An[employer]aria [employer] nurse practitioner acting as scribe for signing physician.
[2018-09-17 11:59] LABS: Glucose,Whole Blood 182 mg/dL (75-99)
[2018-09-17] MEDS: LOSARTAN 50 MG TAB PO SCH (12:30)
[2018-09-17 16:45] LABS: Glucose,Whole Blood 125 mg/dL (75-99)
--- NOTE | 2018-09-17 20:49 | P.CNPUL ---
History of Present Illness Consult date: 09/17/18 Reason for consult: dyspnea, cough, pneumonia Chief complaint: Shortness of breath and cough History of present illness: Mr. Varghese is a 53-year-old male seen and evaluated examined on third floor patient has a history of chronic hypoxic respiratory failure on 3 L of oxygen at home, hyperlipidemia, hypertension, tobacco use and dependence. Patient complains of increasing shortness of breath and cough with clear sputum this been going on for 2 days. He denies having any fever. He is currently on home O2 at 3-1/2-4 L nasal cannula. He denies any lower extremity edema. He denies history of heart failure, [place], stroke. He denies any choking episodes. He does have a nebulizer home O2 and a portable tank at home. He does not have CPAP. Patient continues to smoke half a pack per day Patient came into [facility] emergency center for evaluation by EMS with a documented pulse ox dropped to 40% with mental status changes. He was placed on CPAP by EMS and oxygenation improved to the 80s as well as mental status. He was afebrile, heart rate 111, respirations 26, pulse ox 92 on oxygen, blood pressure 109/62. CO2 49, EKG was a sinus tachycardia without acute ST changes. ProBNP 263. Lactic acid 4.3, troponin 0.012. Venous blood gas showed pH of 7.34, pCO2 95 and bicarbonate 50. Chest x-ray reveals new perihilar patchy pulmonary edema and worse in the left lower lobe compared to old exam. This could relate to acute pneumonia. There is underlying COPD. Patient was admitted to the cardiac stepdown unit and started on nebulizer treatments, Solu-Medrol. Subsequently, CT of the chest was requested that revealed basilar ground glass infiltrates with air space infiltrate left lower lobe a reflect underlying pneumonia. Small bilateral pleural effusions. 8.8 mm left lower lobe pulmonary nodule. Follow-up CT in 3 months advised. Centrilobular emphysema. Review of Systems All systems: negative Past Medical History Past Medical History: COPD, Hyperlipidemia, Hypertension, Pneumonia Additional Past Medical History / Comment(s): Respiratory failure and has been vented, home O2 at 4L/NC, denies any hx of [place]. History of Any Multi-Drug Resistant Organisms: None Reported Past Surgical History: Hernia Repair, Orthopedic Surgery Additional Past Surgical History / Comment(s): R knee arthroscopy, R inguinal hernia repair. Past Anesthesia/Blood Transfusion Reactions: No Reported Reaction Past Psychological History: No Psychological Hx Reported Additional Psychological History / Comment(s): Pt resides with family. He has home O2 he normally uses at nite at 4 L He has a nebulizer. He drives. Smoking Status: Current every day smoker Past Alcohol Use History: Daily Additional Past Alcohol Use History / Comment(s): Pt started smoking in 1976 and continues to smoke a half pack a day. He does drink alcohol every couple days . The patient lives at home with his mother and there is a puppy in the home. Patient is a walker but does not use it. He has a nebulizer, home O2 on portable oxygen. No CPAP. Past Drug Use History: Marijuana Additional Drug Use History / Comment(s): Pt used to smoke marijuana daily but now only on occasion. - Past Family History Mother Family Medical History: Coronary Artery Disease (CAD), Osteoarthritis (OA) Additional Family Medical History / Comment(s): Mother had CABG. She is 86 yrs old. Father Family Medical History: No Reported History Additional Family Medical History / Comment(s): Father is healthy and in his 80s. Medications and Allergies Home Medications Medication Instructions Recorded Confirmed Type Ipratropium-Albuterol Nebulize 3 ml INHALATION RT-QID #120 08/20/15 09/16/18 Rx [Duoneb 0.5 mg-3 mg/3 ml Soln] ampul.neb Atorvastatin Calcium [Lipitor] 10 mg PO HS 07/07/17 09/16/18 History Beclomethasone Dipropionate [Qvar 1 puff INHALATION RT-BID 07/07/17 09/16/18 History 80 mcg] Losartan [Cozaar] 50 mg PO DAILY 07/07/17 09/16/18 History Famotidine [Pepcid] 20 mg PO BID #14 tab 07/10/17 09/16/18 Rx Allergies Allergy/AdvReac Type Severity Reaction Status Date / Time No Known Allergies Allergy Verified 09/16/18 18:11 Physical Exam Vitals: Vital Signs Temp Pulse Pulse Resp BP BP BP 09/17/18 16:53 84 09/17/18 16:45 82 09/17/18 16:00 98.2 F 78 16 96/63 09/17/18 15:58 09/17/18 12:00 80 09/17/18 11:47 78 09/17/18 11:41 98 F 83 20 103/65 09/17/18 09:45 90 09/17/18 09:30 88 09/17/18 08:00 98.2 F 80 20 100/57 09/17/18 04:00 98.2 F 79 17 102/63 09/17/18 03:15 09/17/18 02:09 15 09/16/18 23:34 98.2 F 79 15 92/57 09/16/18 23:25 09/16/18 22:08 20 09/16/18 22:06 99.5 F 90 98/66 09/16/18 20:47 98.8 F 88 18 100/63 Pulse Ox 09/17/18 16:53 09/17/18 16:45 09/17/18 16:00 95 09/17/18 15:58 95 09/17/18 12:00 09/17/18 11:47 09/17/18 11:41 96 09/17/18 09:45 09/17/18 09:30 09/17/18 08:00 97 09/17/18 04:00 99 09/17/18 03:15 98 09/17/18 02:09 09/16/18 23:34 96 09/16/18 23:25 98 09/16/18 22:08 09/16/18 22:06 94 L 09/16/18 20:47 96 Intake and Output 09/17/18 09/17/18 09/17/18 06:59 14:59 22:59 Intake Total 505 403 5808 Output Total 300 200 225 Balance -911 141 1819 Intake: IV 950 Azithromycin 500 mg In 250 Sodium Chloride 0.9% 250 ml @ 250 mls/hr IVPB DAILY [facility] Rx#:[id number] Sodium Chloride 0.9% 1, 600 000 ml @ 75 mls/hr IV . [id number] [facility] Rx#:[id number] cefTRIAXone 2 gm In 100 Sodium Chloride 0.9% 50 ml @ 100 mls/hr IVPB Q24HR [facility] Rx#:[id number] Oral 120 480 360 Output: Urine 300 200 225 Other: Voiding Method Urinal Urinal Urinal # Voids 1 1 Weight 43 kg 43 kg - Constitutional General appearance: average body habitus, cooperative, disheveled, mild distress - EENT Eyes: anicteric sclerae, EOMI, PERRLA, poor dentition, normal appearance Ears: bilateral: normal - Neck Neck: normal ROM Carotids: bilateral: upstroke normal Thyroid: bilateral: normal size - Respiratory Respiratory: left: rales, bilateral: diminished, rhonchi, wheezing (During forced expiration), negative: dullness - Cardiovascular Rhythm: regular Heart sounds: normal: S1, S2 - Gastrointestinal General gastrointestinal: decreased bowel sounds, normal bowel sounds, soft - Integumentary Integumentary: normal turgor - Neurologic Neurologic: CNII-XII intact - Musculoskeletal Musculoskeletal: gait normal, generalized weakness, strength equal bilaterally - Psychiatric Psychiatric: A&O x's 3, appropriate affect, intact judgment & insight Results - Laboratory Findings CBC and BMP: 09/16/18 18:09 09/16/18 18:09 PT/INR, D-dimer PT 10.2 sec (9.0-12.0) 09/16/18 18:09 INR 0.9 (<1.2) 09/16/18 18:09 Abnormal lab findings: Abnormal Labs 09/16/18 09/16/18 09/16/18 18:09 18:09 18:09 RBC 3.59 L Hgb 11.3 L Hct 36.6 L MCV 102.0 H Neutrophils # 7.8 H Lymphocytes # 0.3 L VBG pCO2 VBG HCO3 Chloride 83 L Carbon Dioxide 49 H* BUN 21 H Creatinine 0.40 L Glucose 138 H POC Glucose (mg/dL) Plasma Lactic Acid Cornelius 4.3 H* AST 67 H 09/16/18 09/16/18 09/17/18 18:09 22:18 05:54 RBC Hgb Hct MCV Neutrophils # Lymphocytes # VBG pCO2 95 H* VBG HCO3 50 H Chloride Carbon Dioxide BUN Creatinine Glucose POC Glucose (mg/dL) 161 H Plasma Lactic Acid Cornelius 3.3 H* AST 09/17/18 09/17/18 09/17/18 06:00 11:57 16:43 RBC Hgb Hct MCV Neutrophils # Lymphocytes # VBG pCO2 VBG HCO3 Chloride Carbon Dioxide BUN Creatinine Glucose POC Glucose (mg/dL) 182 H 125 H Plasma Lactic Acid Cornelius 0.6 L AST - Diagnostic Findings Chest x-ray: report reviewed, image reviewed CT scan - chest: report reviewed, image reviewed Assessment and Plan Assessment: Acute hypoxic and hypercapnic respiratory failure Left-sided community-acquired pneumonia Acute COPD exacerbation Left upper lobe pulmonary nodule 0.8 cm Hypertension hypertensive cardiovascular disease Active smoker nicotine abuse Noncompliant status Plan: Broad-spectrum antibiotics IV steroids Breathing treatments Continue home medications Smoking cessation advice Supplemental oxygen Deep breathing exercises and incentive spirometry Follow-up as outpatient Computed tomography scan in 3 months Further recommendations pending plan of care as per clinical response of the patient
[2018-09-17 20:53] LABS: Glucose,Whole Blood 191 mg/dL (75-99)
[2018-09-17] MEDS: ATORVASTATIN 10 MG TAB PO SCH (20:57)
[2018-09-17] MEDS: SODIUM CHLORIDE 0.9% 1,000 ML IV SCH (20:57)
[2018-09-18] MEDS: SODIUM CHLORIDE 0.9% 1,000 ML IV SCH ×2 (00:02→13:00)
[2018-09-18] MEDS: methylPREDNISolone SOD SUCCI 125 MG/2 ML VIAL IV SCH ×5 (00:02→23:13)
[2018-09-18 06:10] LABS: Glucose,Whole Blood 180 mg/dL (75-99)
[2018-09-18] MEDS: INSULIN ASPART (NovoLOG) 100 UNIT/ML VIAL SQ SCH ×4 (06:27→20:41)
[2018-09-18] MEDS: IPRATROPIUM-ALBUTEROL 3 ML NEB INHALATION SCH ×4 (07:47→20:12)
[2018-09-18] MEDS: BUDESONIDE 0.5 MG/2 ML NEBU INHALATION SCH ×2 (07:47→20:12)
--- NOTE | 2018-09-18 08:03 | P.PN ---
Subjective Progress Note Date: 09/18/18 Principal diagnosis: Acute COPD exacerbation, pneumonia, left lung nodule, chronic respiratory failure with acute exacerbation, smoking 09/18/2018, patient seen and evaluated examined during the rounds breathing is stabilized is still requiring breathing treatment on supplemental oxygen denies any chest pain is still short of breath on minimal activity and exertion Mr. Varghese is a 53-year-old male seen and evaluated examined on third floor patient has a history of chronic hypoxic respiratory failure on 3 L of oxygen at home, hyperlipidemia, hypertension, tobacco use and dependence. Patient complains of increasing shortness of breath and cough with clear sputum this been going on for 2 days. He denies having any fever. He is currently on home O2 at 3-1/2-4 L nasal cannula. He denies any lower extremity edema. He denies history of heart failure, [place], stroke. He denies any choking episodes. He does have a nebulizer home O2 and a portable tank at home. He does not have CPAP. Patient continues to smoke half a pack per day Patient came into [facility] emergency center for evaluation by EMS with a documented pulse ox dropped to 40% with mental status changes. He was placed on CPAP by EMS and oxygenation improved to the 80s as well as mental status. He was afebrile, heart rate 111, respirations 26, pulse ox 92 on oxygen, blood pressure 109/62. CO2 49, EKG was a sinus tachycardia without acute ST changes. ProBNP 263. Lactic acid 4.3, troponin 0.012. Venous blood gas showed pH of 7.34, pCO2 95 and bicarbonate 50. Chest x-ray reveals new perihilar patchy pulmonary edema and worse in the left lower lobe compared to old exam. This could relate to acute pneumonia. There is underlying COPD. Patient was admitted to the cardiac stepdown unit and started on nebulizer treatments, Solu-Medrol. Subsequently, CT of the chest was requested that revealed basilar ground glass infiltrates with air space infiltrate left lower lobe a reflect underlying pneumonia. Small bilateral pleural effusions. 8.8 mm left lower lobe pulmonary nodule. Follow-up CT in 3 months advised. Centrilobular emphysema. Objective - Vital Signs Vital signs: Vital Signs Temp 98.1 F 09/18/18 05:04 Pulse 76 09/18/18 07:49 Resp 16 09/18/18 05:04 BP 101/60 09/18/18 05:04 Pulse Ox 99 09/18/18 05:04 Intake & Output 09/17/18 09/18/18 09/18/18 18:59 06:59 18:59 Intake Total 1790 600 Output Total 425 Balance 1365 600 Weight 43 kg Intake: IV 950 600 Azithromycin 500 mg In 250 Sodium Chloride 0.9% 250 ml @ 250 mls/hr IVPB DAILY [facility] Rx#:[id number] Sodium Chloride 0.9% 1, 600 600 000 ml @ 75 mls/hr IV . [id number] [facility] Rx#:[id number] cefTRIAXone 2 gm In 100 Sodium Chloride 0.9% 50 ml @ 100 mls/hr IVPB Q24HR [facility] Rx#:[id number] Oral 840 Output: Urine 425 Other: Voiding Method Urinal Urinal # Voids 1 - Exam - Constitutional General appearance: average body habitus, cooperative, disheveled, mild distress - EENT Eyes: anicteric sclerae, EOMI, PERRLA, poor dentition, normal appearance Ears: bilateral: normal - Neck Neck: normal ROM Carotids: bilateral: upstroke normal Thyroid: bilateral: normal size - Respiratory Respiratory: left: rales, bilateral: diminished, rhonchi, wheezing (During forced expiration), negative: dullness - Cardiovascular Rhythm: regular Heart sounds: normal: S1, S2 - Gastrointestinal General gastrointestinal: decreased bowel sounds, normal bowel sounds, soft - Integumentary Integumentary: normal turgor - Neurologic Neurologic: CNII-XII intact - Musculoskeletal Musculoskeletal: gait normal, generalized weakness, strength equal bilaterally - Psychiatric Psychiatric: A&O x's 3, appropriate affect, intact judgment & insight - Labs CBC & Chem 7: 09/16/18 18:09 09/16/18 18:09 Labs: Abnormal Lab Results - Last 24 Hours (Table) 09/17/18 09/17/18 09/17/18 Range/Units 11:57 16:43 20:29 POC Glucose (mg/dL) 182 H 125 H 191 H (75-99) mg/dL 09/18/18 Range/Units 06:01 POC Glucose (mg/dL) 180 H (75-99) mg/dL Microbiology - Last 24 Hours (Table) 09/16/18 18:09 Blood Culture - Preliminary Blood No Growth after 24 hours Assessment and Plan Assessment: Acute hypoxic and hypercapnic respiratory failure Left-sided community-acquired pneumonia Acute COPD exacerbation Left upper lobe pulmonary nodule 0.8 cm Hypertension hypertensive cardiovascular disease Active smoker nicotine abuse Noncompliant status Plan: Broad-spectrum antibiotics IV steroids Breathing treatments Continue home medications Smoking cessation advice Supplemental oxygen Deep breathing exercises and incentive spirometry Follow-up as outpatient Computed tomography scan in 3 months Further recommendations pending plan of care as per clinical response of the patient Time with Patient: Greater than 30
[2018-09-18] MEDS: FAMOTIDINE 20 MG TAB PO SCH ×2 (09:14→20:41)
[2018-09-18] MEDS: ENOXAPARIN 40 MG/0.4 ML SYRINGE SQ SCH (09:14)
[2018-09-18] MEDS: LOSARTAN 50 MG TAB PO SCH (09:14)
[2018-09-18] MEDS: NICOTINE 14MG/24HR PATCH TRANSDERM SCH (09:15)
[2018-09-18] MEDS: AZITHROMYCIN 500 MG in SODIUM CHLORIDE 0.9% 250 ML IVPB SCH (09:43)
[2018-09-18 11:52] LABS: Glucose,Whole Blood 216 mg/dL (75-99)
--- NOTE | 2018-09-18 16:24 | P.PN ---
Subjective Progress Note Date: 09/18/18 This is a 53-year-old male patient of Dr. Plata and Dr. Magallon with past medical history of COPD, chronic hypoxic respiratory failure on 3 L of oxygen at home, hyperlipidemia, hypertension, tobacco use and dependence. Patient complains of increasing shortness of breath and cough with clear sputum this been going on for 2 days. He denies having any fever. He is currently on home O2 at 3-1/2-4 L nasal cannula. He denies any lower extremity edema. He denies history of heart failure, [place], stroke. He denies any choking episodes. He does have a nebulizer home O2 and a portable tank at home. He does not have CPAP. Patient continues to smoke half a pack per day Patient came into [facility] emergency center for evaluation by EMS with a documented pulse ox dropped to 40% with mental status changes. He was placed on CPAP by EMS and oxygenation improved to the 80s as well as mental status. He was afebrile, heart rate 111, respirations 26, pulse ox 92 on oxygen, blood pressure 109/62. CO2 49, EKG was a sinus tachycardia without acute ST changes. ProBNP 263. Lactic acid 4.3, troponin 0.012. Venous blood gas showed pH of 7.34, pCO2 95 and bicarbonate 50. Chest x-ray reveals new perihilar patchy pulmonary edema and worse in the left lower lobe compared to o ld exam. This could relate to acute pneumonia. There is underlying COPD. Patient was admitted to the cardiac stepdown unit and started on nebulizer treatments, Solu-Medrol. Subsequently, CT of the chest was requested that revealed basilar ground glass infiltrates with air space infiltrate left lower lobe a reflect underlying pneumonia. Small bilateral pleural effusions. 8.8 mm left lower lobe pulmonary nodule. Follow-up CT in 3 months advised. Centrilobular emphysema. Consult Dr. Magallon added. 09/18 patient evaluated today is resting comfortably on bed currently on 6 L of oxygen saturating at 98%. Patient complains of increased weakness.. Vitals assessed suggested temp of 98 pulse 80 respiratory rate 18 blood pressure 105/64. Will titrate down the oxygen to keep saturation 80-90%. Continue IV steroids. Continue ceftriaxone and azithromycin for COPD exacerbation.I will discontinue IV fluidsas patient appears to be hypoxic and has decreased air entry bilaterally ROS Constitutional: Denies chills, Denies fever, endorses lethargy, endorses malaise, Denies poor appetite,endorses weakness, Denies weight loss Eyes: denies decreased vision, denies diplopia, denies discharge, denies pain Ears: deny: decreased hearing Ears, nose, mouth and throat: Denies dental pain, Denies headache, Denies nasal discharge, Denies nose pain Cardiovascular: Denies chest pain, Denies decreased exercise tolerance, Denies edema, Denies high blood pressure, Denies irregular heart beat, Denies p alpitations, Denies paroxysmal nocturnal dyspnea, Denies rapid heart beat, endorses shortness of breath Respiratory: Endorses cough with sputum, endorses dyspnea, endorses home oxygen, endorses wheezing Gastrointestinal: Denies abdominal pain, Denies change in bowel habits, Denies coffee ground emesis, Denies early satiety, Denies excessive gas, Denies heartburn, Denies hematemesis, Denies hematochezia, Denies loss of appetite, Denies nausea, Denies vomiting Genitourinary: Denies dysuria, Denies flank pain, Denies kidney stones, Denies menorrhagia, Denies urgency, Denies urinary frequency Musculoskeletal: Denies gait dysfunction, Denies limitation of motion, Denies m orning stiffness, Denies muscle cramps Integumentary: Denies rash, Denies wounds, Denies brittle nails, Denies change in hair/nails, Denies darkening of skin Neurological: Denies balance difficulties, Denies change in speech, Denies double vision, Denies gait dysfunction, Denies loss of vision, Denies motor disturbance, Denies numbness, Denies paralysis, Denies paresthesias, Denies seizures Psychiatric: Denies anxiety, Denies depression Endocrine: Denies excessive sweating, Denies excessive thirst, Denies high blood sugars, Denies palpitations Hematologic/Lymphatic: Denies easy bruising, Denies lymphadenopathy Objective - Vital Signs Vital signs: Vital Signs Temp 97.9 F 09/18/18 16:00 Pulse 82 09/18/18 16:12 Resp 19 09/18/18 16:00 BP 105/58 09/18/18 16:00 Pulse Ox 96 09/18/18 16:12 Intake & Output 09/17/18 09/18/18 09/18/18 18:59 06:59 18:59 Intake Total 1790 600 772 Output Total 425 200 Balance 1365 600 572 Weight 43 kg Intake: IV 950 600 350 Azithromycin 500 mg In 250 250 Sodium Chloride 0.9% 250 ml @ 250 mls/hr IVPB DAILY [facility] Rx#:[id number] Sodium Chloride 0.9% 1, 600 600 000 ml @ 75 mls/hr IV . [id number] [facility] Rx#:[id number] cefTRIAXone 2 gm In 100 100 Sodium Chloride 0.9% 50 ml @ 100 mls/hr IVPB Q24HR [facility] Rx#:[id number] Oral 840 422 Output: Urine 425 200 Other: Voiding Method Urinal Urinal # Voids 1 1 # Bowel Movements 1 - Exam - Constitutional General appearance: cooperative, no acute distress, obese - EENT Eyes: anicteric sclerae, PERRLA, normal appearance ENT: hearing grossly normal - Neck Neck: no lymphadenopathy, normal ROM, no other, no rigidity, no stridor, no thyromegaly - Respiratory Respiratory:bilateral decreased air entry with minimal movement in the upperlobes - Cardiovascular Rhythm: regular Heart sounds: normal: S1, S2 Abnormal Heart Sounds: no systolic murmur, no diastolic murmur, no rub, no S3 Gallop, no S4 Gallop, no click, no other - Gastrointestinal General gastrointestinal: normal bowel sounds, soft - Integumentary Integumentary: no rash - Neurologic Neurologic: CNII-XII intact - Musculoskeletal Musculoskeletal: gait normal, strength equal bilaterally - Psychiatric Psychiatric: A&O x's 3, appropriate affect - Labs CBC & Chem 7: 09/16/18 18:09 09/16/18 18:09 Labs: Abnormal Lab Results - Last 24 Hours (Table) 09/17/18 09/17/18 09/18/18 Range/Units 16:43 20:29 06:01 POC Glucose (mg/dL) 125 H 191 H 180 H (75-99) mg/dL 09/18/18 Range/Units 11:50 POC Glucose (mg/dL) 216 H (75-99) mg/dL Microbiology - Last 24 Hours (Table) 09/16/18 18:09 Blood Culture - Preliminary Blood No Growth after 24 hours Assessment and Plan Plan: 1. Acute on chronic hypoxic hypercapnic respiratory failure secondary to COPD exacerbation and left lower lobe pneumonia. Patient will be placed on azit hromycin and ceftriaxone IV, DuoNeb treatments 4 times daily and every 4 hours as needed, Solu-Medrol 60 mg IV every 6 hours, Pulmicort 0.5 mg twice daily. titrate down oxygen to keep SpO2 goal of 80-90%Consult with Dr. Magallon. 2. Hypertension. Continue losartan 50 mg daily. 3. Hyperlipidemia. Continue Lipitor 10 mg at bedtime. 4. Tobacco use and dependence. Patient counseled regarding smoking cessation. Nicotine patch 14 mg daily. 5. CODE STATUS: Full code. 6. GI prophylaxis. Pepcid 20 mg twice daily. 7. DVT prophylaxis. Lovenox 40 mg subcu daily.
[2018-09-18 17:00] LABS: Glucose,Whole Blood 67 mg/dL (75-99)
[2018-09-18 17:06] LABS: Glucose,Whole Blood 70 mg/dL (75-99)
[2018-09-18 20:36] LABS: Glucose,Whole Blood 175 mg/dL (75-99)
[2018-09-18] MEDS: ATORVASTATIN 10 MG TAB PO SCH (20:41)
[2018-09-19 06:35] LABS: Glucose,Whole Blood 140 mg/dL (75-99)
[2018-09-19] MEDS: methylPREDNISolone SOD SUCCI 125 MG/2 ML VIAL IV SCH ×4 (06:47→23:52)
[2018-09-19] MEDS: INSULIN ASPART (NovoLOG) 100 UNIT/ML VIAL SQ SCH ×4 (06:47→23:52)
[2018-09-19 06:52] LABS: Basophils % (A) 0 %; Eosinophils # (A) 0.1 k/uL (0-0.7); Eosinophils % (A) 1 %; HCT 35.5 % (39.0-53.0); HGB 10.6 gm/dL (13.0-17.5); Hypochromasia Marked; Lymphocytes # (A) 0.6 k/uL (1.0-4.8); Lymphocytes % (A) 5 %; MCH 30.9 pg (25.0-35.0); MCHC 29.9 g/dL (31.0-37.0); MCV 103.5 fL (80.0-100.0); Macrocytosis Slight; Mean Platelet Volume 8.3; Monocytes # (A) 0.4 k/uL (0-1.0); Monocytes % (A) 3 %; Neutrophils # (A) 11.4 k/uL (1.3-7.7); Neutrophils % (A) 91 %; Platelet Count 144 k/uL (150-450); RBC 3.43 m/uL (4.30-5.90); RDW 13.4 % (11.5-15.5); WBC 12.6 k/uL (3.8-10.6)
[2018-09-19 07:11] LABS: ALT 80 U/L (21-72); AST 62 U/L (17-59); African American GFR (CKD) >90 (>60 ml/min/1.73 sqM); Albumin 3.6 g/dL (3.5-5.0); Alkaline Phosphatase 58 U/L (38-126); Blood Urea Nitrogen 22 mg/dL (9-20); Calcium 9.4 mg/dL (8.4-10.2); Chloride 85 mmol/L (98-107); Glucose 137 mg/dL (74-99); Potassium 5.2 mmol/L (3.5-5.1); Sodium 140 mmol/L (137-145); Total Bilirubin 0.3 mg/dL (0.2-1.3); Total Protein 5.9 g/dL (6.3-8.2)
[2018-09-19 07:18] LABS: Anion Gap 3 mmol/L
[2018-09-19 07:26] LABS: Carbon Dioxide 52 mmol/L (22-30)
[2018-09-19] MEDS: LOSARTAN 50 MG TAB PO SCH (08:16)
[2018-09-19] MEDS: AZITHROMYCIN 500 MG TAB PO SCH (08:16)
[2018-09-19] MEDS: NICOTINE 14MG/24HR PATCH TRANSDERM SCH (08:17)
[2018-09-19] MEDS: ENOXAPARIN 40 MG/0.4 ML SYRINGE SQ SCH (08:17)
[2018-09-19] MEDS: FAMOTIDINE 20 MG TAB PO SCH ×2 (08:17→20:00)
[2018-09-19] MEDS: IPRATROPIUM-ALBUTEROL 3 ML NEB INHALATION SCH ×4 (08:32→18:55)
[2018-09-19] MEDS: BUDESONIDE 0.5 MG/2 ML NEBU INHALATION SCH ×2 (08:34→18:55)
[2018-09-19 12:15] LABS: Glucose,Whole Blood 155 mg/dL (75-99)
[2018-09-19 14:32] LABS: ABG Oxygen Saturation 92.8 % (94-97); ABG PO2 72 mmHg (83-108); Allen Test Performed? Yes
[2018-09-19 14:37] LABS: ABG PCO2 >120 mmHg (35-45); ABG PH 7.18 (7.35-7.45)
[2018-09-19 14:40] LABS: ABG HCO3 >120 mmol/L (21-25)
--- NOTE | 2018-09-19 15:23 | P.PN ---
Subjective This is a 53-year-old male patient of Dr. Plata and Dr. Magallon with past medical history of COPD, chronic hypoxic respiratory failure on 3 L of oxygen at home, hyperlipidemia, hypertension, tobacco use and dependence. Patient complains of increasing shortness of breath and cough with clear sputum this been going on for 2 days. He denies having any fever. He is currently on home O2 at 3-1/2-4 L nasal cannula. He denies any lower extremity edema. He denies history of heart failure, DE, stroke. He denies any choking episodes. He does have a nebulizer home O2 and a portable tank at home. He does not have CPAP. Patient continues to smoke half a pack per day Patient came into [facility] for evaluation by EMS with a documented pulse ox dropped to 40% with mental status changes. He was placed on CPAP by EMS and oxygenation improved to the 80s as well as mental status. He was afebrile, heart rate 111, respirations 26, pulse ox 92 on oxygen, blood pressure 109/62. CO2 49, EKG was a sinus tachycardia without acute ST changes. ProBNP 263. Lactic acid 4.3, troponin 0.012. Venous blood gas showed pH of 7.34, pCO2 95 and bicarbonate 50. Chest x-ray reveals new perihilar patchy pulmonary edema and worse in the left lower lobe compared to old exam. This could relate to acute pneumonia. There is underlying COPD. Patient was admitted to the cardiac stepdown unit and started on nebulizer treatments, Solu-Medrol. Subsequently, CT of the chest was requested that revealed basilar ground glass infiltrates with air space infiltrate left lower lobe a reflect underlying pneumonia. Small bilateral pleural effusions. 8.8 mm left lower lobe pulmonary nodule. Follow-up CT in 3 months advised. Centrilobular emphysema. Consult Dr. Magallon added. 09/18 patient evaluated today is resting comfortably on bed currently on 6 L of oxygen saturating at 98%. Patient complains of increased weakness.. Vitals assessed suggested temp of 98 pulse 80 respiratory rate 18 blood pressure 105/64. Will titrate down the oxygen to keep saturation 80-90%. Continue IV steroids. Continue ceftriaxone and azithromycin for COPD exacerbation.I will discontinue IV fluidsas patient appears to be hypoxic and has decreased air entry bilaterally 09/19 patient evaluated today lying comfortably in bed. Appears to be slightly confused. Labs evaluated suggested a WBC of 12.6 hemoglobin 10.6 and MCV 103. BNP suggests a bicarb of 52 potassium 5.2. Stat ABG ordered patient to be placed on BiPAP if respiratory acidosis seen. ROS Constitutional: Denies chills, Denies fever, endorses lethargy, endorses malaise, Denies poor appetite,endorses weakness, Denies weight loss Eyes: denies decreased vision, denies diplopia, denies discharge, denies pain Ears: deny: decreased hearing Ears, nose, mouth and throat: Denies dental pain, Denies headache, Denies nasal discharge, Denies nose pain Cardiovascular: Denies chest pain, Denies decreased exercise tolerance, Denies edema, Denies high blood pressure, Denies irregular heart beat, Denies palpitations, Denies paroxysmal nocturnal dyspnea, Denies rapid heart beat, endorses shortness of breath Respiratory: Endorses cough with sputum, endorses dyspnea, endorses home oxygen, endorses wheezing Gastrointestinal: Denies abdominal pain, Denies change in bowel habits, Denies coffee ground emesis, Denies early satiety, Denies excessive gas, Denies heartburn, Denies hematemesis, Denies hematochezia, Denies loss of appetite, Denies nausea, Denies vomiting Genitourinary: Denies dysuria, Denies flank pain, Denies kidney stones, Denies menorrhagia, Denies urgency, Denies urinary frequency Musculoskeletal: Denies gait dysfunction, Denies limitation of motion, Denies morning stiffness, Denies muscle cramps Integumentary: Denies rash, Denies wounds, Denies brittle nails, Denies change in hair/nails, Denies darkening of skin Neurological: Denies balance difficulties, Denies change in speech, Denies double vision, Denies gait dysfunction, Denies loss of vision, Denies motor disturbance, Denies numbness, Denies paralysis, Denies paresthesias, Denies seizures endorses confusion Psychiatric: Denies anxiety, Denies depression Endocrine: Denies excessive sweating, Denies excessive thirst, Denies high blood sugars, Denies palpitations Hematologic/Lymphatic: Denies easy bruising, Denies lymphadenopathy Objective - Vital Signs Vital signs: Vital Signs Temp 97.6 F 09/19/18 12:15 Pulse 99 09/19/18 12:15 Resp 18 09/19/18 12:15 BP 126/73 09/19/18 12:15 Pulse Ox 92 L 09/19/18 12:15 Intake & Output 09/18/18 09/19/18 09/19/18 18:59 06:59 18:59 Intake Total 1132 100 Output Total 200 400 400 Balance 932 -400 -300 Weight 47.7 kg 47.7 kg Intake: IV 350 100 Azithromycin 500 mg In 250 Sodium Chloride 0.9% 250 ml @ 250 mls/hr IVPB DAILY [facility]IL[facility]O Rx#:[id number] cefTRIAXone 2 gm In 100 100 Sodium Chloride 0.9% 50 ml @ 100 mls/hr IVPB Q24HR [facility]ILFREDO Rx#:[id number] Oral 782 Output: Urine 200 400 400 Other: Voiding Method Urinal # Voids 1 1 2 # Bowel Movements 1 - Exam - Constitutional General appearance: cooperative, no acute distress, cachectic - EENT Eyes: anicteric sclerae, PERRLA, normal appearance ENT: hearing grossly normal - Neck Neck: no lymphadenopathy, normal ROM, no other, no rigidity, no stridor, no thyromegaly - Respiratory Respiratory:bilateral decreased air entry with minimal movement in the upperlobes and lower - Cardiovascular Rhythm: regular Heart sounds: normal: S1, S2 Abnormal Heart Sounds: no systolic murmur, no diastolic murmur, no rub, no S3 Gallop, no S4 Gallop, no click, no other - Gastrointestinal General gastrointestinal: normal bowel sounds, soft - Integumentary Integumentary: no rash - Neurologic Neurologic: CNII-XII intact - Musculoskeletal Musculoskeletal: gait normal, strength equal bilaterally - Psychiatric Psychiatric: A&O x's 3, appropriate affect - Labs CBC & Chem 7: 09/19/18 06:27 09/19/18 06:27 Labs: Abnormal Lab Results - Last 24 Hours (Table) 09/18/18 09/18/18 09/18/18 Range/Units 16:49 17:03 20:34 WBC (3.8-10.6) k/uL RBC (4.30-5.90) m/uL Hgb (13.0-17.5) gm/dL Hct (39.0-53.0) % MCV (80.0-100.0) fL MCHC (31.0-37.0) g/dL Plt Count (150-450) k/uL Neutrophils # (1.3-7.7) k/uL Lymphocytes # (1.0-4.8) k/uL ABG pH (7.35-7.45) ABG pCO2 (35-45) mmHg ABG pO2 (83-108) mmHg ABG HCO3 (21-25) mmol/L ABG O2 Saturation (94-97) % Potassium (3.5-5.1) mmol/L Chloride (98-107) mmol/L Carbon Dioxide (22-30) mmol/L BUN (9-20) mg/dL Creatinine (0.66-1.25) mg/dL Glucose (74-99) mg/dL POC Glucose (mg/dL) 67 L 70 L 175 H (75-99) mg/dL AST (17-59) U/L ALT (21-72) U/L Total Protein (6.3-8.2) g/dL 09/19/18 09/19/18 09/19/18 Range/Units 06:27 06:27 06:34 WBC 12.6 H (3.8-10.6) k/uL RBC 3.43 L (4.30-5.90) m/uL Hgb 10.6 L (13.0-17.5) gm/dL Hct 35.5 L (39.0-53.0) % MCV 103.5 H (80.0-100.0) fL MCHC 29.9 L (31.0-37.0) g/dL Plt Count 144 L (150-450) k/uL Neutrophils # 11.4 H (1.3-7.7) k/uL Lymphocytes # 0.6 L (1.0-4.8) k/uL ABG pH (7.35-7.45) ABG pCO2 (35-45) mmHg ABG pO2 (83-108) mmHg ABG HCO3 (21-25) mmol/L ABG O2 Saturation (94-97) % Potassium 5.2 H (3.5-5.1) mmol/L Chloride 85 L (98-107) mmol/L Carbon Dioxide 52 H* (22-30) mmol/L BUN 22 H (9-20) mg/dL Creatinine 0.35 L (0.66-1.25) mg/dL Glucose 137 H (74-99) mg/dL POC Glucose (mg/dL) 140 H (75-99) mg/dL AST 62 H (17-59) U/L ALT 80 H (21-72) U/L Total Protein 5.9 L (6.3-8.2) g/dL 09/19/18 09/19/18 Range/Units 12:12 14:28 WBC (3.8-10.6) k/uL RBC (4.30-5.90) m/uL Hgb (13.0-17.5) gm/dL Hct (39.0-53.0) % MCV (80.0-100.0) fL MCHC (31.0-37.0) g/dL Plt Count (150-450) k/uL Neutrophils # (1.3-7.7) k/uL Lymphocytes # (1.0-4.8) k/uL ABG pH 7.18 L* (7.35-7.45) ABG pCO2 >120 H* (35-45) mmHg ABG pO2 72 L (83-108) mmHg ABG HCO3 >120 H* (21-25) mmol/L ABG O2 Saturation 92.8 L (94-97) % Potassium (3.5-5.1) mmol/L Chloride (98-107) mmol/L Carbon Dioxide (22-30) mmol/L BUN (9-20) mg/dL Creatinine (0.66-1.25) mg/dL Glucose (74-99) mg/dL POC Glucose (mg/dL) 155 H (75-99) mg/dL AST (17-59) U/L ALT (21-72) U/L Total Protein (6.3-8.2) g/dL Microbiology - Last 24 Hours (Table) 09/16/18 18:09 Blood Culture - Preliminary Blood No Growth after 48 hours Assessment and Plan Plan: 1. Acute on chronic hypoxic hypercapnic respiratory failure secondary to COPD exacerbation and left lower lobe pneumonia. Patient will be placed on azithromycin and ceftriaxone IV, DuoNeb treatments 4 times daily and every 4 hours as needed, Solu-Medrol 60 mg IV every 6 hours, Pulmicort 0.5 mg twice daily. titrate down oxygen to keep SpO2 goal of 80-90%Consult with Dr. Magallon. ABG ordered to evaluate for BiPAP placement as patient appears confused 2. Hypertension. Continue losartan 50 mg daily. 3. Hyperlipidemia. Continue Lipitor 10 mg at bedtime. 4. Tobacco use and dependence. Patient counseled regarding smoking cessation. Nicotine patch 14 mg daily. 5. CODE STATUS: Full code. 6. GI prophylaxis. Pepcid 20 mg twice daily. 7. DVT prophylaxis. Lovenox 40 mg subcu daily. 8 encephalopathy likely secondary to CO2 narcosis. ABG ordered. Will be placed on BiPAP if elevated
--- NOTE | 2018-09-19 15:33 | P.PN ---
Subjective Progress Note Date: 09/19/18 On 09/19/2018 I am seeing this patient covering Dr. Magallon. The patient got transferred to the intensive care unit as the patient was becoming more solid and sleepy and lethargic and confused. Blood gases on the floor showed a pH of 7.1 with a pCO2 of more than 120 and pO2 of 72. The patient got transferred to the intensive care unit. He meets I put him on a AVAPS mode with a tidal volume target of 350. He is feeling better. Is tolerating the BiPAP better. He has diffuse and severe centrilobular emphysema. Chest x-ray was repeated is consistent with hyperinflation and COPD. Some limited groundglass changes were seen in the earlier CAT scan of the chest that was suggestive underlying pneumonia/fluids. Denies having any chest pain. No nausea. No vomiting. No abdominal pain. He in the records showed that the patient is on a combination of albuterol and Atrovent about treatments around the clock is receiving IV Solu-Medrol and he is receiving also Rocephin and Zithromax. He is also on Lasix 40 mg daily/when necessary. Lovenox for DVT prophylaxis. He is also on a Pulmicort 0.5 nebulized treatments twice a day. He is a chronic smoker. There is evidence of advanced COPD. Objective - Vital Signs Vital signs: Vital Signs Temp 97.6 F 09/19/18 12:15 Pulse 99 09/19/18 12:15 Resp 18 09/19/18 12:15 BP 126/73 09/19/18 12:15 Pulse Ox 92 L 09/19/18 12:15 Intake & Output 09/18/18 09/19/18 09/19/18 18:59 06:59 18:59 Intake Total 1132 100 Output Total 200 400 400 Balance 932 -400 -300 Weight 47.7 kg 47.7 kg Intake: IV 350 100 Azithromycin 500 mg In 250 Sodium Chloride 0.9% 250 ml @ 250 mls/hr IVPB DAILY [facility] Rx#:[id number] cefTRIAXone 2 gm In 100 100 Sodium Chloride 0.9% 50 ml @ 100 mls/hr IVPB Q24HR [facility] Rx#:[id number] Oral 782 Output: Urine 200 400 400 Other: Voiding Method Urinal # Voids 1 1 2 # Bowel Movements 1 - Exam - Constitutional General appearance: average body habitus, cooperative, disheveled, mild distress, some degree of diminished level of consciousness and increased sleepi ness as the patient has hypercapnic respiratory failure and CO2 narcosis. - EENT Eyes: anicteric sclerae, EOMI, PERRLA, poor dentition, normal appearance Ears: bilateral: normal - Neck Neck:allison was supple and without jugular venous distension, thyromegaly, or carotid bruits. Carotids were easily palpable bilaterally. There was no adenopathy. Carotids: bilateral: upstroke normal Thyroid: bilateral: normal size - Respiratory Respiratory: left: rales, bilateral: diminished, rhonchi, wheezing (During forced expiration), negative: dullness - Cardiovascular Rhythm: regular Heart sounds: Cardiac exam revealed the PMI to be normally situated and sized. The rhythm was regular and no extrasystoles were noted during several minutes of auscultation. The first and second heart sounds were normal and physiologic splitting of the second heart sound was noted. There were no murmurs, rubs, clicks, or gallops. Overall heart sounds are distant - Gastrointestinal General gastrointestinal: decreased bowel sounds, normal bowel sounds, soft - Integumentary Integumentary: normal turgor - Neurologic Neurologic: CNII-XII intact - Musculoskeletal Musculoskeletal: gait normal, generalized weakness, strength equal bilaterally - Psychiatric Psychiatric: Awake but sleepy appropriate affect, intact judgment & insight - Labs CBC & Chem 7: 09/19/18 06:27 09/19/18 06:27 Labs: Abnormal Lab Results - Last 24 Hours (Table) 09/18/18 09/18/18 09/18/18 Range/Units 16:49 17:03 20:34 WBC (3.8-10.6) k/uL RBC (4.30-5.90) m/uL Hgb (13.0-17.5) gm/dL Hct (39.0-53.0) % MCV (80.0-100.0) fL MCHC (31.0-37.0) g/dL Plt Count (150-450) k/uL Neutrophils # (1.3-7.7) k/uL Lymphocytes # (1.0-4.8) k/uL ABG pH (7.35-7.45) ABG pCO2 (35-45) mmHg ABG pO2 (83-108) mmHg ABG HCO3 (21-25) mmol/L ABG O2 Saturation (94-97) % Potassium (3.5-5.1) mmol/L Chloride (98-107) mmol/L Carbon Dioxide (22-30) mmol/L BUN (9-20) mg/dL Creatinine (0.66-1.25) mg/dL Glucose (74-99) mg/dL POC Glucose (mg/dL) 67 L 70 L 175 H (75-99) mg/dL AST (17-59) U/L ALT (21-72) U/L Total Protein (6.3-8.2) g/dL 09/19/18 09/19/18 09/19/18 Range/Units 06:27 06:27 06:34 WBC 12.6 H (3.8-10.6) k/uL RBC 3.43 L (4.30-5.90) m/uL Hgb 10.6 L (13.0-17.5) gm/dL Hct 35.5 L (39.0-53.0) % MCV 103.5 H (80.0-100.0) fL MCHC 29.9 L (31.0-37.0) g/dL Plt Count 144 L (150-450) k/uL Neutrophils # 11.4 H (1.3-7.7) k/uL Lymphocytes # 0.6 L (1.0-4.8) k/uL ABG pH (7.35-7.45) ABG pCO2 (35-45) mmHg ABG pO2 (83-108) mmHg ABG HCO3 (21-25) mmol/L ABG O2 Saturation (94-97) % Potassium 5.2 H (3.5-5.1) mmol/L Chloride 85 L (98-107) mmol/L Carbon Dioxide 52 H* (22-30) mmol/L BUN 22 H (9-20) mg/dL Creatinine 0.35 L (0.66-1.25) mg/dL Glucose 137 H (74-99) mg/dL POC Glucose (mg/dL) 140 H (75-99) mg/dL AST 62 H (17-59) U/L ALT 80 H (21-72) U/L Total Protein 5.9 L (6.3-8.2) g/dL 09/19/18 09/19/18 Range/Units 12:12 14:28 WBC (3.8-10.6) k/uL RBC (4.30-5.90) m/uL Hgb (13.0-17.5) gm/dL Hct (39.0-53.0) % MCV (80.0-100.0) fL MCHC (31.0-37.0) g/dL Plt Count (150-450) k/uL Neutrophils # (1.3-7.7) k/uL Lymphocytes # (1.0-4.8) k/uL ABG pH 7.18 L* (7.35-7.45) ABG pCO2 >120 H* (35-45) mmHg ABG pO2 72 L (83-108) mmHg ABG HCO3 >120 H* (21-25) mmol/L ABG O2 Saturation 92.8 L (94-97) % Potassium (3.5-5.1) mmol/L Chloride (98-107) mmol/L Carbon Dioxide (22-30) mmol/L BUN (9-20) mg/dL Creatinine (0.66-1.25) mg/dL Glucose (74-99) mg/dL POC Glucose (mg/dL) 155 H (75-99) mg/dL AST (17-59) U/L ALT (21-72) U/L Total Protein (6.3-8.2) g/dL Microbiology - Last 24 Hours (Table) 09/16/18 18:09 Blood Culture - Preliminary Blood No Growth after 48 hours Assessment and Plan Plan: 1 acute on chronic hypercapnic respiratory failure with evidence of CO2 narcosis. The patient's pCO2 was above 120 and the patient has acute on top of chronic respiratory acidosis. Patient was moved to the intensive care unit as the patient was having symptoms of CO2 narcosis. Currently is on a BiPAP with AVAPS modes 2 COPD exacerbation 3 suspected left lower lobe pneumonia 4 hypertension 5 chronic smoker Plan Patient got transferred to the intensive care unit. Continue DuoNeb nebulized units [id number]. Continue Pulmicort. At Perforomist 1 nebulized treatment twice a day. IV Solu-Medrol. Add theophylline, 200 mg mg by mouth twice a day. Rocephin and Zithromax. We'll put the patient on a AVAPS mode of ventilator with a target volume of 350. We'll put the patient and I time of 0.7 ms. DVT and GI prophylaxis. Condition is critical. High likelihood for ventilator-dependent respiratory failure. Nicotine patch. We'll continue to follow. Prognosis poor baseline above-mentioned comorbidities.
--- NOTE | 2018-09-19 15:41 | XR ---
EXAMINATION TYPE: XR chest 1V DATE OF EXAM: 09/19/2018 COMPARISON: 09/16/2018 HISTORY: Short of breath TECHNIQUE: Single frontal view of the chest is obtained. FINDINGS: There is pulmonary interstitial edema. Heart size is normal. There is no pleural effusion. There are chest leads. Trachea is midline. There is intact bony thorax. IMPRESSION: Pulmonary interstitial edema unchanged.
[2018-09-19 15:46] LABS: Glucose,Whole Blood 130 mg/dL (75-99)
[2018-09-19 16:52] LABS: ABG Oxygen Saturation 98.6 % (94-97); ABG PH 7.24 (7.35-7.45); ABG PO2 125 mmHg (83-108); Allen Test Performed? Yes
[2018-09-19 16:54] LABS: ABG PCO2 >120 mmHg (35-45)
[2018-09-19] MEDS: FORMOTEROL FUMARATE 20 MCG/2 ML NEBU INHALATION SCH (18:55)
[2018-09-19 19:07] LABS: Glucose,Whole Blood 146 mg/dL (75-99)
[2018-09-19] MEDS: ATORVASTATIN 10 MG TAB PO SCH (20:00)
[2018-09-19 23:55] LABS: Glucose,Whole Blood 134 mg/dL (75-99)
[2018-09-20 04:42] LABS: Basophils % (A) 0 %; Eosinophils # (A) 0.1 k/uL (0-0.7); Eosinophils % (A) 1 %; HCT 31.4 % (39.0-53.0); HGB 9.5 gm/dL (13.0-17.5); Hypochromasia Marked; Lymphocytes # (A) 0.5 k/uL (1.0-4.8); Lymphocytes % (A) 6 %; MCH 31.1 pg (25.0-35.0); MCHC 30.2 g/dL (31.0-37.0); MCV 102.7 fL (80.0-100.0); Macrocytosis Slight; Mean Platelet Volume 8.4; Monocytes # (A) 0.4 k/uL (0-1.0); Monocytes % (A) 4 %; Neutrophils # (A) 7.6 k/uL (1.3-7.7); Neutrophils % (A) 89 %; Platelet Count 117 k/uL (150-450); RBC 3.06 m/uL (4.30-5.90); RDW 13.1 % (11.5-15.5); WBC 8.6 k/uL (3.8-10.6)
[2018-09-20 04:50] LABS: African American GFR (CKD) >90 (>60 ml/min/1.73 sqM); Blood Urea Nitrogen 29 mg/dL (9-20); Calcium 9.4 mg/dL (8.4-10.2); Chloride 86 mmol/L (98-107); Glucose 122 mg/dL (74-99); Potassium 5.4 mmol/L (3.5-5.1); Sodium 139 mmol/L (137-145)
[2018-09-20 04:56] LABS: Anion Gap -1 mmol/L
[2018-09-20 05:00] LABS: Carbon Dioxide 54 mmol/L (22-30)
[2018-09-20] MEDS: INSULIN ASPART (NovoLOG) 100 UNIT/ML VIAL SQ SCH ×4 (05:01→21:29)
[2018-09-20] MEDS: methylPREDNISolone SOD SUCCI 125 MG/2 ML VIAL IV SCH ×3 (05:11→17:12)
[2018-09-20] MEDS: BUDESONIDE 0.5 MG/2 ML NEBU INHALATION SCH ×2 (07:04→20:41)
[2018-09-20] MEDS: IPRATROPIUM-ALBUTEROL 3 ML NEB INHALATION SCH ×4 (07:04→20:40)
[2018-09-20] MEDS: FORMOTEROL FUMARATE 20 MCG/2 ML NEBU INHALATION SCH ×2 (07:04→20:41)
--- NOTE | 2018-09-20 08:43 | XR ---
EXAMINATION TYPE: XR chest 1V portable DATE OF EXAM: 09/20/2018 COMPARISON: 09/19/2018 HISTORY: Shortness of breath TECHNIQUE: Single frontal view of the chest is obtained. FINDINGS: Hyperinflation compatible COPD and there is diffuse interstitial pattern with basilar cons olidation and tiny effusions. Heart size stable. No pneumothorax. Prominence the pulmonary artery sug gests pulmonary arterial hypertension. IMPRESSION: COPD with suspected interstitial chronic lung disease with superimposed interstitial pne umonitis or venous congestion appear stable.
[2018-09-20] MEDS: FAMOTIDINE 20 MG TAB PO SCH ×2 (10:39→21:29)
[2018-09-20] MEDS: NICOTINE 14MG/24HR PATCH TRANSDERM SCH ×2 (10:39→10:53)
[2018-09-20] MEDS: LOSARTAN 50 MG TAB PO SCH (10:39)
[2018-09-20] MEDS: ENOXAPARIN 40 MG/0.4 ML SYRINGE SQ SCH (10:39)
[2018-09-20] MEDS: AZITHROMYCIN 500 MG TAB PO SCH (11:47)
[2018-09-20] MEDS: THEOPHYLLINE 24 HOUR 200 MG CAP.ER.24H PO SCH (11:47)
--- NOTE | 2018-09-20 12:10 | P.PN ---
Subjective Progress Note Date: 09/20/18 This is a 53-year-old male patient of Dr. Plata and Dr. Magallon with past medical history of COPD, chronic hypoxic respiratory failure on 3 L of oxygen at home, hyperlipidemia, hypertension, tobacco use and dependence. Patient complains of increasing shortness of breath and cough with clear sputum this been going on for 2 days. He denies having any fever. He is currently on home O2 at 3-1/2-4 L nasal cannula. He denies any lower extremity edema. He denies history of heart failure, [place], stroke. He denies any choking episodes. He does have a nebulizer home O2 and a portable tank at home. He does not have CPAP. Patient continues to smoke half a pack per day Patient came into [facility] emergency center for evaluation by EMS with a documented pulse ox dropped to 40% with mental status changes. He was placed on CPAP by EMS and oxygenation improved to the 80s as well as mental status. He was afebrile, heart rate 111, respirations 26, pulse ox 92 on oxygen, blood pressure 109/62. CO2 49, EKG was a sinus tachycardia without acute ST changes. ProBNP 263. Lactic acid 4.3, troponin 0.012. Venous blood gas showed pH of 7.34, pCO2 95 and bicarbonate 50. Chest x-ray reveals new perihilar patchy pulmonary edema and worse in the left lower lobe compared to o ld exam. This could relate to acute pneumonia. There is underlying COPD. Patient was admitted to the cardiac stepdown unit and started on nebulizer treatments, Solu-Medrol. Subsequently, CT of the chest was requested that revealed basilar ground glass infiltrates with air space infiltrate left lower lobe a reflect underlying pneumonia. Small bilateral pleural effusions. 8.8 mm left lower lobe pulmonary nodule. Follow-up CT in 3 months advised. Centrilobular emphysema. Consult Dr. Magallon added. 09/18 patient evaluated today is resting comfortably on bed currently on 6 L of oxygen saturating at 98%. Patient complains of increased weakness.. Vitals assessed suggested temp of 98 pulse 80 respiratory rate 18 blood pressure 105/64. Will titrate down the oxygen to keep saturation 80-90%. Continue IV steroids. Continue ceftriaxone and azithromycin for COPD exacerbation.I will discontinue IV fluidsas patient appears to be hypoxic and has decreased air entry bilaterally 09/19 patient evaluated today lying comfortably in bed. Appears to be slightly confused. Labs evaluated suggested a WBC of 12.6 hemoglobin 10.6 and MCV 103. BNP suggests a bicarb of 52 potassium 5.2. Stat ABG ordered patient to be placed on BiPAP if respiratory acidosis seen. 09/20: Stat ABGs from yesterday revealed a pH of 7.18, pCO2 greater than 120, pO2 72, bicarb greater than 120, O2 saturation 92.8. Patient was transferred to the intensive care unit and Dr. Kilgore was covering for Dr. Magallon. Patient did not require intubation but was placed on AVAPS. He was started on Perforomist and oral theophylline. Repeat lab work this morning reveals white count of 8.6, hemoglobin 9.5, platelet count 117. Sodium 139, potassium 5.4, chloride 86, CO2 54, BUN 29 creatinine 0.28. Blood sugars are running 122-146. Repeat chest x- ray reveals COPD with suspected interstitial chronic lung disease with superi mposed interstitial pneumonitis or venous congestion appears stable. Patient remains in intensive care unit on AVAPS mode. Patient states his breathing is better today. He has remained afebrile, heart rate 60s, blood pressure 109/62. Objective - Vital Signs Vital signs: Vital Signs Temp 96.6 F L 09/20/18 04:00 Pulse 60 09/20/18 07:36 Resp 14 09/20/18 07:00 BP 99/52 09/20/18 07:00 Pulse Ox 98 09/20/18 07:00 Intake & Output 09/19/18 09/20/18 09/20/18 18:59 06:59 18:59 Intake Total 400 190 Output Total 626 475 Balance -226 -285 Weight 49.5 kg Intake: IV 100 190 KVO 90 cefTRIAXone 2 gm In 100 100 Sodium Chloride 0.9% 50 ml @ 100 mls/hr IVPB Q24HR [facility] Rx#:[id number] Oral 300 Output: Urine 626 475 Other: Voiding Method Urinal # Voids 1 0 - Exam ROS Constitutional: Denies chills, Denies fever, endorses lethargy, endorses malaise, Denies poor appetite,endorses weakness, Denies weight loss Eyes: denies decreased vision, denies diplopia, denies discharge, denies pain Ears: deny: decreased hearing Ears, nose, mouth and throat: Denies dental pain, Denies headache, Denies nasal discharge, Denies nose pain Cardiovascular: Denies chest pain, Denies decreased exercise tolerance, Denies edema, Denies high blood pressure, Denies irregular heart beat, Denies palpit ations, Denies paroxysmal nocturnal dyspnea, Denies rapid heart beat, endorses shortness of breath Respiratory: Endorses cough with sputum, endorses dyspnea, endorses home oxygen, endorses wheezing Gastrointestinal: Denies abdominal pain, Denies change in bowel habits, Denies coffee ground emesis, Denies early satiety, Denies excessive gas, Denies heartburn, Denies hematemesis, Denies hematochezia, Denies loss of appetite, Denies nausea, Denies vomiting Genitourinary: Denies dysuria, Denies flank pain, Denies kidney stones, Denies menorrhagia, Denies urgency, Denies urinary frequency Musculoskeletal: Denies gait dysfunction, Denies limitation of motion, Denies morning stiffness, Denies muscle cramps Integumentary: Denies rash, Denies wounds, Denies brittle nails, Denies change in hair/nails, Denies darkening of skin Neurological: Denies balance difficulties, Denies change in speech, Denies double vision, Denies gait dysfunction, Denies loss of vision, Denies motor disturbance, Denies numbness, Denies paralysis, Denies paresthesias, Denies seizures Denies confusion Psychiatric: Denies anxiety, Denies depression Endocrine: Denies excessive sweating, Denies excessive thirst, Denies high blood sugars, Denies palpitations Hematologic/Lymphatic: Denies easy bruising, Denies lymphadenopathy - Constitutional General appearance: average body habitus, cooperative, disheveled, mild distress. - EENT Eyes: anicteric sclerae, EOMI, PERRLA, poor dentition, normal appearance Ears: bilateral: normal - Neck Neck:allison was supple and without jugular venous distension, thyromegaly, or carotid bruits. Carotids were easily palpable bilaterally. There was no adenopathy. Carotids: bilateral: upstroke normal Thyroid: bilateral: normal size - Respiratory Respiratory: left: rales, bilateral: diminished, with the decreased breath sounds, bronchial sounds present negative: dullness - Cardiovascular Rhythm: regular Heart sounds: Cardiac exam revealed the PMI to be normally situated and sized. The rhythm was regular and no extrasystoles were noted during several minutes of auscultation. The first and second heart sounds were normal and physiologic splitting of the second heart sound was noted. There were no murmurs, rubs, clicks, or gallops. Overall heart sounds are distant - Gastrointestinal General gastrointestinal: decreased bowel sounds, normal bowel sounds, soft - Integumentary Integumentary: normal turgor - Neurologic Neurologic: CNII-XII intact - Musculoskeletal Musculoskeletal: gait normal, generalized weakness, strength equal bilaterally - Psychiatric Psychiatric: Awake but sleepy appropriate affect, intact judgment & insight - Labs CBC & Chem 7: 09/20/18 04:13 09/20/18 04:13 Labs: Abnormal Lab Results - Last 24 Hours (Table) 09/19/18 09/19/18 09/19/18 Range/Units 12:12 14:28 15:34 RBC (4.30-5.90) m/uL Hgb (13.0-17.5) gm/dL Hct (39.0-53.0) % MCV (80.0-100.0) fL MCHC (31.0-37.0) g/dL Plt Count (150-450) k/uL Lymphocytes # (1.0-4.8) k/uL ABG pH 7.18 L* (7.35-7.45) ABG pCO2 >120 H* (35-45) mmHg ABG pO2 72 L (83-108) mmHg ABG HCO3 >120 H* (21-25) mmol/L ABG O2 Saturation 92.8 L (94-97) % Potassium (3.5-5.1) mmol/L Chloride (98-107) mmol/L Carbon Dioxide (22-30) mmol/L BUN (9-20) mg/dL Creatinine (0.66-1.25) mg/dL Glucose (74-99) mg/dL POC Glucose (mg/dL) 155 H 130 H (75-99) mg/dL 09/19/18 09/19/18 09/19/18 Range/Units 16:50 18:55 23:43 RBC (4.30-5.90) m/uL Hgb (13.0-17.5) gm/dL Hct (39.0-53.0) % MCV (80.0-100.0) fL MCHC (31.0-37.0) g/dL Plt Count (150-450) k/uL Lymphocytes # (1.0-4.8) k/uL ABG pH 7.24 L (7.35-7.45) ABG pCO2 >120 H* (35-45) mmHg ABG pO2 125 H (83-108) mmHg ABG HCO3 (21-25) mmol/L ABG O2 Saturation 98.6 H (94-97) % Potassium (3.5-5.1) mmol/L Chloride (98-107) mmol/L Carbon Dioxide (22-30) mmol/L BUN (9-20) mg/dL Creatinine (0.66-1.25) mg/dL Glucose (74-99) mg/dL POC Glucose (mg/dL) 146 H 134 H (75-99) mg/dL 09/20/18 09/20/18 Range/Units 04:13 04:13 RBC 3.06 L (4.30-5.90) m/uL Hgb 9.5 L (13.0-17.5) gm/dL Hct 31.4 L (39.0-53.0) % MCV 102.7 H (80.0-100.0) fL MCHC 30.2 L (31.0-37.0) g/dL Plt Count 117 L (150-450) k/uL Lymphocytes # 0.5 L (1.0-4.8) k/uL ABG pH (7.35-7.45) ABG pCO2 (35-45) mmHg ABG pO2 (83-108) mmHg ABG HCO3 (21-25) mmol/L ABG O2 Saturation (94-97) % Potassium 5.4 H (3.5-5.1) mmol/L Chloride 86 L (98-107) mmol/L Carbon Dioxide 54 H* (22-30) mmol/L BUN 29 H (9-20) mg/dL Creatinine 0.28 L (0.66-1.25) mg/dL Glucose 122 H (74-99) mg/dL POC Glucose (mg/dL) (75-99) mg/dL Microbiology - Last 24 Hours (Table) 09/16/18 18:09 Blood Culture - Preliminary Blood No Growth after 72 hours Assessment and Plan Plan: 1. Acute on chronic hypoxic hypercapnic respiratory failure secondary to COPD exacerbation and left lower lobe pneumonia. Patient will be placed on azithromycin and ceftriaxone IV, DuoNeb treatments [id number] and every 4 hours as needed, continue Pulmicort twice daily, Perforomist twice daily, Solu- Medrol 60 mg IV every 6 hours. Theophylline 200 mg twice daily added. Continue Rocephin and Zithromax. Consult with Dr. Magallon. 2. Acute hypoxic encephalopathy secondary to CO2 narcosis. Patient was moved to the intensive care unit. Continue BiPAP. 3. Hypertension. Continue losartan 50 mg daily. 3. Hyperlipidemia. Continue Lipitor 10 mg at bedtime. 4. Tobacco use and dependence. Patient counseled regarding smoking cessation. Nicotine patch 14 mg daily. 5. CODE STATUS: Full code. 6. GI prophylaxis. Pepcid 20 mg twice daily. 7. DVT prophylaxis. Lovenox 40 mg subcu daily. Prognosis guarded. Discharge plan: Most likely return home Impression and plan of care have been directed as dictated by the signing physician. Anamaria Gaming nurse practitioner acting as scribe for signing physician.
[2018-09-20 12:17] LABS: Glucose,Whole Blood 139 mg/dL (75-99)
--- NOTE | 2018-09-20 12:47 | P.PN ---
Subjective Progress Note Date: 09/20/18 Principal diagnosis: Acute on chronic hypercapnic respiratory failure with CO2 narcosis. On 09/19/2018 I am seeing this patient covering Dr. Magallon. The patient got transferred to the intensive care unit as the patient was becoming more solid and sleepy and lethargic and confused. Blood gases on the floor showed a pH of 7.1 with a pCO2 of more than 120 and pO2 of 72. The patient got transferred to the intensive care unit. He meets I put him on a AVAPS mode with a tidal volume target of 350. He is feeling better. Is tolerating the BiPAP better. He has diffuse and severe centrilobular emphysema. Chest x-ray was repeated is consistent with hyperinflation and COPD. Some limited groundglass changes were seen in the earlier CAT scan of the chest that was suggestive underlying pneumonia/fluids. Denies having any chest pain. No nausea. No vomiting. No abdominal pain. He in the records showed that the patient is on a combination of albuterol and Atrovent about treatments around the clock is receiving IV Solu-Medrol and he is receiving also Rocephin and Zithromax. He is also on Lasix 40 mg daily/when necessary. Lovenox for DVT prophylaxis. He is also on a Pulmicort 0.5 nebulized treatments twice a day. He is a chronic smoker. There is evidence of advanced COPD. Reevaluated today on 09/20/2018, patient remains in the ICU, on AVAPS mode of ventilation, with a target volume of 350, patient is doing well, relatively asymptomatic, he was off BiPAP briefly earlier today, and he started developing lethargy and narcosis, hence he was placed back on BiPAP. Patient obviously has severe emphysema, chest x-ray is consistent with severe emphysema. And I b elieve there is some component of pneumonia involving lower lobes. There is also evidence to suggest pulmonary hypertension. Labs today were reviewed, his bicarb is 54, his potassium is 5.4, CBC is relatively normal, hemoglobin is 9.5. Objective - Vital Signs Vital signs: Vital Signs Temp 97.0 F L 09/20/18 12:00 Pulse 90 09/20/18 12:30 Resp 19 09/20/18 12:30 BP 98/71 09/20/18 12:30 Pulse Ox 99 09/20/18 12:30 Intake & Output 09/19/18 09/20/18 09/20/18 18:59 06:59 18:59 Intake Total 400 190 100 Output Total 626 475 0 Balance -226 -285 100 Weight 49.5 kg Intake: IV 100 190 100 KVO 90 50 cefTRIAXone 2 gm In 100 100 50 Sodium Chloride 0.9% 50 ml @ 100 mls/hr IVPB Q24HR [facility] Rx#:[id number] Oral 300 Output: Urine 626 475 0 Other: Voiding Method Urinal # Voids 1 0 1 - Exam Physical Exam: Revealed a 53-year-old white male on BiPAP, Head: Atraumatic, normocephalic, HEENT:[Neck is supple.] [No neck masses.] [No thyromegaly.] [No JVD.] Chest: [Diminished breath sound bilaterally, rhonchi and wheezes noted bilaterally. Cardiac Exam: [Normal S1 and S2, no S3 gallop, no murmur.] Abdomen: [Soft, nontender, no megaly, no rebound, no guarding, normal bowel sounds.] Extremities: [No clubbing, no edema, no cyanosis.] Neurological Exam: Alert and oriented 3. [No focal neurologic deficit. Psychiatric: Normal mood affect and normal mental status examination.] - Labs CBC & Chem 7: 09/20/18 04:13 09/20/18 04:13 Labs: Abnormal Lab Results - Last 24 Hours (Table) 09/19/18 09/19/18 09/19/18 Range/Units 14:28 15:34 16:50 RBC (4.30-5.90) m/uL Hgb (13.0-17.5) gm/dL Hct (39.0-53.0) % MCV (80.0-100.0) fL MCHC (31.0-37.0) g/dL Plt Count (150-450) k/uL Lymphocytes # (1.0-4.8) k/uL ABG pH 7.18 L* 7.24 L (7.35-7.45) ABG pCO2 >120 H* >120 H* (35-45) mmHg ABG pO2 72 L 125 H (83-108) mmHg ABG HCO3 >120 H* (21-25) mmol/L ABG O2 Saturation 92.8 L 98.6 H (94-97) % Potassium (3.5-5.1) mmol/L Chloride (98-107) mmol/L Carbon Dioxide (22-30) mmol/L BUN (9-20) mg/dL Creatinine (0.66-1.25) mg/dL Glucose (74-99) mg/dL POC Glucose (mg/dL) 130 H (75-99) mg/dL 09/19/18 09/19/18 09/20/18 Range/Units 18:55 23:43 04:13 RBC 3.06 L (4.30-5.90) m/uL Hgb 9.5 L (13.0-17.5) gm/dL Hct 31.4 L (39.0-53.0) % MCV 102.7 H (80.0-100.0) fL MCHC 30.2 L (31.0-37.0) g/dL Plt Count 117 L (150-450) k/uL Lymphocytes # 0.5 L (1.0-4.8) k/uL ABG pH (7.35-7.45) ABG pCO2 (35-45) mmHg ABG pO2 (83-108) mmHg ABG HCO3 (21-25) mmol/L ABG O2 Saturation (94-97) % Potassium (3.5-5.1) mmol/L Chloride (98-107) mmol/L Carbon Dioxide (22-30) mmol/L BUN (9-20) mg/dL Creatinine (0.66-1.25) mg/dL Glucose (74-99) mg/dL POC Glucose (mg/dL) 146 H 134 H (75-99) mg/dL 09/20/18 09/20/18 Range/Units 04:13 12:05 RBC (4.30-5.90) m/uL Hgb (13.0-17.5) gm/dL Hct (39.0-53.0) % MCV (80.0-100.0) fL MCHC (31.0-37.0) g/dL Plt Count (150-450) k/uL Lymphocytes # (1.0-4.8) k/uL ABG pH (7.35-7.45) ABG pCO2 (35-45) mmHg ABG pO2 (83-108) mmHg ABG HCO3 (21-25) mmol/L ABG O2 Saturation (94-97) % Potassium 5.4 H (3.5-5.1) mmol/L Chloride 86 L (98-107) mmol/L Carbon Dioxide 54 H* (22-30) mmol/L BUN 29 H (9-20) mg/dL Creatinine 0.28 L (0.66-1.25) mg/dL Glucose 122 H (74-99) mg/dL POC Glucose (mg/dL) 139 H (75-99) mg/dL Microbiology - Last 24 Hours (Table) 09/16/18 18:09 Blood Culture - Preliminary Blood No Growth after 72 hours Assessment and Plan Assessment: Impression: 1: Acute on chronic hypoxic and hypercapnic respiratory failure secondary to severe COPD/emphysema. 2 suspect bibasilar pneumonia, however mostly involving the left lower lobe. 3 acute encephalopathy/metabolic in nature most likely secondary to CO2 narcosis. 4 multiple comorbidities including hypertension, hyperlipidemia, and history of tobacco dependence syndrome. Recommendation: Continue present antibiotics, bronchodilators, BiPAP, not quite ready to be transferred out of the ICU, will continue to follow closely, continue GI and DVT prophylaxis. Patient is on Pepcid and Lovenox. Long-term p rognosis is definitely poor and guarded. Time with Patient: Less than 30
[2018-09-20 16:59] LABS: Glucose,Whole Blood 304 mg/dL (75-99)
[2018-09-20 17:11] LABS: Glucose,Whole Blood 262 mg/dL (75-99)
[2018-09-20 20:28] LABS: Amphetamine Screen,Urine Not Detected (NotDetected); Barbiturate Screen,Urine Not Detected (NotDetected); Benzodiazepines Screen,Urine Not Detected (NotDetected); Cocaine Screen,Urine Not Detected (NotDetected); Methadone Screen, Urine Not Detected (NotDetected); Opiate Screen,Urine Not Detected (NotDetected); Oxycodone Screen, Urine Not Detected (NotDetected); Phencyclidine Screen,Urine Not Detected (NotDetected); Tricyclic Antidepressant,Urine Not Detected (NotDetected); Urn Cannabinoid Scrn Not Detected (NotDetected)
[2018-09-20 21:17] LABS: Glucose,Whole Blood 184 mg/dL (75-99)
[2018-09-20] MEDS: ATORVASTATIN 10 MG TAB PO SCH (21:29)
[2018-09-21] MEDS: methylPREDNISolone SOD SUCCI 125 MG/2 ML VIAL IV SCH ×5 (01:38→23:12)
[2018-09-21 04:52] LABS: Basophils % (A) 0 %; Eosinophils % (A) 0 %; HCT 30.1 % (39.0-53.0); HGB 8.8 gm/dL (13.0-17.5); Hypochromasia Marked; Lymphocytes # (A) 0.4 k/uL (1.0-4.8); Lymphocytes % (A) 5 %; MCH 29.5 pg (25.0-35.0); MCHC 29.4 g/dL (31.0-37.0); MCV 100.6 fL (80.0-100.0); Mean Platelet Volume 7.4; Monocytes # (A) 0.4 k/uL (0-1.0); Monocytes % (A) 5 %; Neutrophils # (A) 7.1 k/uL (1.3-7.7); Neutrophils % (A) 88 %; Platelet Count 126 k/uL (150-450); RBC 2.99 m/uL (4.30-5.90); RDW 13.1 % (11.5-15.5)
[2018-09-21 04:58] LABS: African American GFR (CKD) >90 (>60 ml/min/1.73 sqM); Blood Urea Nitrogen 34 mg/dL (9-20); Calcium 9.3 mg/dL (8.4-10.2); Chloride 84 mmol/L (98-107); Glucose 135 mg/dL (74-99); Potassium 5.1 mmol/L (3.5-5.1); Sodium 139 mmol/L (137-145)
[2018-09-21 05:04] LABS: Anion Gap -3 mmol/L
[2018-09-21 05:07] LABS: Carbon Dioxide 58 mmol/L (22-30)
[2018-09-21] MEDS: INSULIN ASPART (NovoLOG) 100 UNIT/ML VIAL SQ SCH ×4 (07:01→20:18)
[2018-09-21 07:03] LABS: Glucose,Whole Blood 170 mg/dL (75-99)
--- NOTE | 2018-09-21 07:51 | XR ---
EXAMINATION TYPE: XR chest 1V portable DATE OF EXAM: 09/21/2018 COMPARISON: 09/20/2018 HISTORY: Shortness of breath TECHNIQUE: Single frontal view of the chest is obtained. FINDINGS: Hyperinflation compatible COPD and there is diffuse interstitial pattern with basilar cons olidation and tiny effusions. Heart size stable. No pneumothorax. Prominence the pulmonary artery sug gests pulmonary arterial hypertension. IMPRESSION: COPD with suspected interstitial chronic lung disease with superimposed interstitial pneu monitis or venous congestion appear stable.
[2018-09-21] MEDS: BUDESONIDE 0.5 MG/2 ML NEBU INHALATION SCH ×2 (08:06→19:31)
[2018-09-21] MEDS: FORMOTEROL FUMARATE 20 MCG/2 ML NEBU INHALATION SCH ×2 (08:06→19:26)
[2018-09-21] MEDS: IPRATROPIUM-ALBUTEROL 3 ML NEB INHALATION SCH ×4 (08:06→19:26)
[2018-09-21] MEDS: NICOTINE 14MG/24HR PATCH TRANSDERM SCH (08:36)
[2018-09-21] MEDS: FAMOTIDINE 20 MG TAB PO SCH ×2 (08:37→20:18)
[2018-09-21] MEDS: THEOPHYLLINE 24 HOUR 200 MG CAP.ER.24H PO SCH (08:37)
[2018-09-21] MEDS: AZITHROMYCIN 500 MG TAB PO SCH (08:37)
[2018-09-21] MEDS: ENOXAPARIN 40 MG/0.4 ML SYRINGE SQ SCH (08:37)
[2018-09-21] MEDS: LOSARTAN 50 MG TAB PO SCH (08:37)
[2018-09-21 10:01] VITALS: BMI 17.6
--- NOTE | 2018-09-21 11:01 | P.PN ---
Subjective Progress Note Date: 09/21/18 Principal diagnosis: Acute on chronic hypercapnic respiratory failure with CO2 narcosis. On 09/19/2018 I am seeing this patient covering Dr. Magallon. The patient got transferred to the intensive care unit as the patient was becoming more solid and sleepy and lethargic and confused. Blood gases on the floor showed a pH of 7.1 with a pCO2 of more than 120 and pO2 of 72. The patient got transferred to the intensive care unit. He meets I put him on a AVAPS mode with a tidal volume target of 350. He is feeling better. Is tolerating the BiPAP better. He has diffuse and severe centrilobular emphysema. Chest x-ray was repeated is consistent with hyperinflation and COPD. Some limited groundglass changes were seen in the earlier CAT scan of the chest that was suggestive underlying pneumonia/fluids. Denies having any chest pain. No nausea. No vomiting. No abdominal pain. He in the records showed that the patient is on a combination of albuterol and Atrovent about treatments around the clock is receiving IV Solu-Medrol and he is receiving also Rocephin and Zithromax. He is also on Lasix 40 mg daily/when necessary. Lovenox for DVT prophylaxis. He is also on a Pulmicort 0.5 nebulized treatments twice a day. He is a chronic smoker. There is evidence of advanced COPD. Reevaluated today on 09/20/2018, patient remains in the ICU, on AVAPS mode of ventilation, with a target volume of 350, patient is doing well, relatively asymptomatic, he was off BiPAP briefly earlier today, and he started developing lethargy and narcosis, hence he was placed back on BiPAP. Patient obviously has severe emphysema, chest x-ray is consistent with severe emphysema. And I b elieve there is some component of pneumonia involving lower lobes. There is also evidence to suggest pulmonary hypertension. Labs today were reviewed, his bicarb is 54, his potassium is 5.4, CBC is relatively normal, hemoglobin is 9.5. Reevaluated today on 09/21/2018, patient is now in the ICU, off BiPAP, on nasal cannula at 5 L/m, patient is doing well, feels much better, breathing a lot easier, no cough no wheezing, patient denies any chest pain, no fever, no chills, no hemoptysis. Patient feels much better today compared to yesterday, and he is still on multiple bronchodilators, steroids, antibiotics, chest x-ray showed minimal improvement in his infiltrates bilaterally. Labs were reviewed CBC is relatively normal except for hemoglobin of 8.8 electrolytes are normal bicarb is 58 renal profile is normal. Objective - Vital Signs Vital signs: Vital Signs Temp 97.7 F 09/21/18 08:00 Pulse 82 09/21/18 09:00 Resp 17 09/21/18 09:00 BP 102/56 09/21/18 09:00 Pulse Ox 98 09/21/18 09:00 Intake & Output 09/20/18 09/21/18 09/21/18 18:59 06:59 18:59 Intake Total 1120 120 200 Output Total 450 275 250 Balance 670 -155 -50 Weight 49.5 kg 49.5 kg Intake: IV 160 120 80 KVO 110 120 30 cefTRIAXone 2 gm In 50 50 Sodium Chloride 0.9% 50 ml @ 100 mls/hr IVPB Q24HR [facility] Rx#:[id number] Oral 960 120 Output: Urine 450 275 250 Other: Voiding Method Urinal Urinal Urinal # Voids 1 0 1 - Exam Physical Exam: Revealed a 53-year-old white male on 5 L high flow nasal cannula. In no distress. Head: Atraumatic, normocephalic, HEENT:[Neck is supple.] [No neck masses.] [No thyromegaly.] [No JVD.] Chest: [Diminished breath sound bilaterally, minimal wheezing on forced expiratory maneuver. Cardiac Exam: [Normal S1 and S2, no S3 gallop, no murmur.] Abdomen: [Soft, nontender, no megaly, no rebound, no guarding, normal bowel sounds.] Extremities: [No clubbing, no edema, no cyanosis.] Neurological Exam: Alert and oriented 3. [No focal neurologic deficit. Psychiatric: Normal mood affect and normal mental status examination.] Lymphatics: No lymphadenopathy. Skin: No rashes. - Labs CBC & Chem 7: 09/21/18 04:12 09/21/18 04:12 Labs: Abnormal Lab Results - Last 24 Hours (Table) 09/20/18 09/20/18 09/20/18 Range/Units 12:05 16:48 16:59 RBC (4.30-5.90) m/uL Hgb (13.0-17.5) gm/dL Hct (39.0-53.0) % MCV (80.0-100.0) fL MCHC (31.0-37.0) g/dL Plt Count (150-450) k/uL Lymphocytes # (1.0-4.8) k/uL Chloride (98-107) mmol/L Carbon Dioxide (22-30) mmol/L BUN (9-20) mg/dL Creatinine (0.66-1.25) mg/dL Glucose (74-99) mg/dL POC Glucose (mg/dL) 139 H 304 H 262 H (75-99) mg/dL 09/20/18 09/21/18 09/21/18 Range/Units 21:06 04:12 04:12 RBC 2.99 L (4.30-5.90) m/uL Hgb 8.8 L (13.0-17.5) gm/dL Hct 30.1 L (39.0-53.0) % MCV 100.6 H (80.0-100.0) fL MCHC 29.4 L (31.0-37.0) g/dL Plt Count 126 L (150-450) k/uL Lymphocytes # 0.4 L (1.0-4.8) k/uL Chloride 84 L (98-107) mmol/L Carbon Dioxide 58 H* (22-30) mmol/L BUN 34 H (9-20) mg/dL Creatinine 0.36 L (0.66-1.25) mg/dL Glucose 135 H (74-99) mg/dL POC Glucose (mg/dL) 184 H (75-99) mg/dL 09/21/18 Range/Units 06:52 RBC (4.30-5.90) m/uL Hgb (13.0-17.5) gm/dL Hct (39.0-53.0) % MCV (80.0-100.0) fL MCHC (31.0-37.0) g/dL Plt Count (150-450) k/uL Lymphocytes # (1.0-4.8) k/uL Chloride (98-107) mmol/L Carbon Dioxide (22-30) mmol/L BUN (9-20) mg/dL Creatinine (0.66-1.25) mg/dL Glucose (74-99) mg/dL POC Glucose (mg/dL) 170 H (75-99) mg/dL Microbiology - Last 24 Hours (Table) 09/16/18 18:09 Blood Culture - Preliminary Blood No Growth after 96 hours Assessment and Plan Assessment: Impression: 1: Acute on chronic hypoxic and hypercapnic respiratory failure secondary to severe COPD/emphysema. 2 suspect bibasilar pneumonia, however mostly involving the left lower lobe. 3 acute encephalopathy/metabolic in nature most likely secondary to CO2 narcosis. 4 multiple comorbidities including hypertension, hyperlipidemia, and history of tobacco dependence syndrome. Recommendation: Continue present antibiotics, bronchodilators, continue oxygen, keep a BiPAP at bedside, patient will be transferred out of the ICU to a medical surgical floor, will follow on when necessary basis, patient will be followed on the floor by Dr. Ravindra Magallon Time with Patient: Less than 30
[2018-09-21 11:56] LABS: Glucose,Whole Blood 219 mg/dL (75-99)
--- NOTE | 2018-09-21 12:53 | P.PN ---
Subjective Progress Note Date: 09/21/18 Principal diagnosis: Acute COPD exacerbation, pneumonia, left lung nodule, chronic respiratory failure with acute exacerbation, smoking 09/21/2018, patient is a seen and evaluated examined in ICU he is breathing better in terms of chest pain or shortness of breath but is still on activity or short of breath he is on 5 due to her oxygen he declined use of BiPAP machine anymore, he is more awake oriented 3 has still some cough labs reviewed medications reviewed, chest x-ray from earlier today revealed bilateral basal interstitial prominence likely due to COPD but pneumonia cannot be excluded 09/18/2018, patient seen and evaluated examined during the rounds breathing is stabilized is still requiring breathing treatment on supplemental oxygen denies any chest pain is still short of breath on minimal activity and exertion Mr. Varghese is a 53-year-old male seen and evaluated examined on third floor patient has a history of chronic hypoxic respiratory failure on 3 L of oxygen at home, hyperlipidemia, hypertension, tobacco use and dependence. Patient complains of increasing shortness of breath and cough with clear sputum this been going on for 2 days. He denies having any fever. He is currently on home O2 at 3-1/2-4 L nasal cannula. He denies any lower extremity edema. He denies history of heart failure, VT, stroke. He denies any choking episodes. He does have a nebulizer home O2 and a portable tank at home. He does not have CPAP. Patient continues to smoke half a pack per day Patient came into [facility] emergency center for evaluation by EMS with a documented pulse ox dropped to 40% with mental status changes. He was placed on CPAP by EMS and oxygenation improved to the 80s as well as mental status. He was afebrile, heart rate 111, respirations 26, pulse ox 92 on oxygen, blood pressure 109/62. CO2 49, EKG was a sinus tachycardia without acute ST changes. ProBNP 263. Lactic acid 4.3, troponin 0.012. Venous blood gas showed pH of 7.34, pCO2 95 and bicarbonate 50. Chest x-ray reveals new perihilar patchy pulmonary edema and worse in the left lower lobe compared to old exam. This could relate to acute pneumonia. There is underlying COPD. Patient was admitted to the cardiac stepdown unit and started on nebulizer t reatments, Solu-Medrol. Subsequently, CT of the chest was requested that revealed basilar ground glass infiltrates with air space infiltrate left lower lobe a reflect underlying pneumonia. Small bilateral pleural effusions. 8.8 mm left lower lobe pulmonary nodule. Follow-up CT in 3 months advised. Centrilobular emphysema. Objective - Vital Signs Vital signs: Vital Signs Temp 97.7 F 09/21/18 08:00 Pulse 80 09/21/18 12:14 Resp 17 09/21/18 09:00 BP 102/56 09/21/18 09:00 Pulse Ox 98 09/21/18 09:00 Intake & Output 09/20/18 09/21/18 09/21/18 18:59 06:59 18:59 Intake Total 1120 120 200 Output Total 450 275 250 Balance 670 -155 -50 Weight 49.5 kg 49.5 kg Intake: IV 160 120 80 KVO 110 120 30 cefTRIAXone 2 gm In 50 50 Sodium Chloride 0.9% 50 ml @ 100 mls/hr IVPB Q24HR [id number] Rx#:[id number] Oral 960 120 Output: Urine 450 275 250 Other: Voiding Method Urinal Urinal Urinal # Voids 1 0 1 - Exam - Constitutional General appearance: average body habitus, cooperative, disheveled, mild distress - EENT Eyes: anicteric sclerae, EOMI, PERRLA, poor dentition, normal appearance Ears: bilateral: normal - Neck Neck: normal ROM Carotids: bilateral: upstroke normal Thyroid: bilateral: normal size - Respiratory Respiratory: left: rales, bilateral: diminished, rhonchi, wheezing (During forced expiration), negative: dullness - Cardiovascular Rhythm: regular Heart sounds: normal: S1, S2 - Gastrointestinal General gastrointestinal: decreased bowel sounds, normal bowel sounds, soft - Integumentary Integumentary: normal turgor - Neurologic Neurologic: CNII-XII intact - Musculoskeletal Musculoskeletal: gait normal, generalized weakness, strength equal bilaterally - Psychiatric Psychiatric: A&O x's 3, appropriate affect, intact judgment & insight - Labs CBC & Chem 7: 09/21/18 04:12 09/21/18 04:12 Labs: Abnormal Lab Results - Last 24 Hours (Table) 09/20/18 09/20/18 09/20/18 Range/Units 16:48 16:59 21:06 RBC (4.30-5.90) m/uL Hgb (13.0-17.5) gm/dL Hct (39.0-53.0) % MCV (80.0-100.0) fL MCHC (31.0-37.0) g/dL Plt Count (150-450) k/uL Lymphocytes # (1.0-4.8) k/uL Chloride (98-107) mmol/L Carbon Dioxide (22-30) mmol/L BUN (9-20) mg/dL Creatinine (0.66-1.25) mg/dL Glucose (74-99) mg/dL POC Glucose (mg/dL) 304 H 262 H 184 H (75-99) mg/dL 09/21/18 09/21/18 09/21/18 Range/Units 04:12 04:12 06:52 RBC 2.99 L (4.30-5.90) m/uL Hgb 8.8 L (13.0-17.5) gm/dL Hct 30.1 L (39.0-53.0) % MCV 100.6 H (80.0-100.0) fL MCHC 29.4 L (31.0-37.0) g/dL Plt Count 126 L (150-450) k/uL Lymphocytes # 0.4 L (1.0-4.8) k/uL Chloride 84 L (98-107) mmol/L Carbon Dioxide 58 H* (22-30) mmol/L BUN 34 H (9-20) mg/dL Creatinine 0.36 L (0.66-1.25) mg/dL Glucose 135 H (74-99) mg/dL POC Glucose (mg/dL) 170 H (75-99) mg/dL 09/21/18 Range/Units 11:43 RBC (4.30-5.90) m/uL Hgb (13.0-17.5) gm/dL Hct (39.0-53.0) % MCV (80.0-100.0) fL MCHC (31.0-37.0) g/dL Plt Count (150-450) k/uL Lymphocytes # (1.0-4.8) k/uL Chloride (98-107) mmol/L Carbon Dioxide (22-30) mmol/L BUN (9-20) mg/dL Creatinine (0.66-1.25) mg/dL Glucose (74-99) mg/dL POC Glucose (mg/dL) 219 H (75-99) mg/dL Microbiology - Last 24 Hours (Table) 09/16/18 18:09 Blood Culture - Preliminary Blood No Growth after 96 hours Assessment and Plan Assessment: Acute hypoxic and hypercapnic respiratory failure Bilateral pneumonia Acute COPD exacerbation Left upper lobe pulmonary nodule 0.8 cm Hypertension hypertensive cardiovascular disease Active smoker nicotine abuse Noncompliant status Plan: Broad-spectrum antibiotics IV steroids Breathing treatments Continue home medications Smoking cessation advice Supplemental oxygen titrated oxygen down as tolerated Can be moved out of the ICU Deep breathing exercises and incentive spirometry Follow-up as outpatient Computed tomography scan in 3 months Further recommendations pending plan of care as per clinical response of the patient Time with Patient: Greater than 30
--- NOTE | 2018-09-21 15:40 | P.PN ---
Subjective Progress Note Date: 09/21/18 This is a 53-year-old male patient of Dr. Plata and Dr. Magallon with past medical history of COPD, chronic hypoxic respiratory failure on 3 L of oxygen at home, hyperlipidemia, hypertension, tobacco use and dependence. Patient complains of increasing shortness of breath and cough with clear sputum this been going on for 2 days. He denies having any fever. He is currently on home O2 at 3-1/2-4 L nasal cannula. He denies any lower extremity edema. He denies history of heart failure, CA, stroke. He denies any choking episodes. He does have a nebulizer home O2 and a portable tank at home. He does not have CPAP. Patient continues to smoke half a pack per day Patient came into [facility] emergency center for evaluation by EMS with a documented pulse ox dropped to 40% with mental status changes. He was placed on CPAP by EMS and oxygenation improved to the 80s as well as mental status. He was afebrile, heart rate 111, respirations 26, pulse ox 92 on oxygen, blood pressure 109/62. CO2 49, EKG was a sinus tachycardia without acute ST changes. ProBNP 263. Lactic acid 4.3, troponin 0.012. Venous blood gas showed pH of 7.34, pCO2 95 and bicarbonate 50. Chest x-ray reveals new perihilar patchy pulmonary edema and worse in the left lower lobe compared to o ld exam. This could relate to acute pneumonia. There is underlying COPD. Patient was admitted to the cardiac stepdown unit and started on nebulizer treatments, Solu-Medrol. Subsequently, CT of the chest was requested that revealed basilar ground glass infiltrates with air space infiltrate left lower lobe a reflect underlying pneumonia. Small bilateral pleural effusions. 8.8 mm left lower lobe pulmonary nodule. Follow-up CT in 3 months advised. Centrilobular emphysema. Consult Dr. Magallon added. 09/18 patient evaluated today is resting comfortably on bed currently on 6 L of oxygen saturating at 98%. Patient complains of increased weakness.. Vitals assessed suggested temp of 98 pulse 80 respiratory rate 18 blood pressure 105/64. Will titrate down the oxygen to keep saturation 80-90%. Continue IV steroids. Continue ceftriaxone and azithromycin for COPD exacerbation.I will discontinue IV fluidsas patient appears to be hypoxic and has decreased air entry bilaterally 09/19 patient evaluated today lying comfortably in bed. Appears to be slightly confused. Labs evaluated suggested a WBC of 12.6 hemoglobin 10.6 and MCV 103. BNP suggests a bicarb of 52 potassium 5.2. Stat ABG ordered patient to be placed on BiPAP if respiratory acidosis seen. 09/20: Stat ABGs from yesterday revealed a pH of 7.18, pCO2 greater than 120, pO2 72, bicarb greater than 120, O2 saturation 92.8. Patient was transferred to the intensive care unit and Dr. Kilgore was covering for Dr. Magallon. Patient did not require intubation but was placed on AVAPS. He was started on Perforomist and oral theophylline. Repeat lab work this morning reveals white count of 8.6, hemoglobin 9.5, platelet count 117. Sodium 139, potassium 5.4, chloride 86, CO2 54, BUN 29 creatinine 0.28. Blood sugars are running 122-146. Repeat chest x- ray reveals COPD with suspected interstitial chronic lung disease with superi mposed interstitial pneumonitis or venous congestion appears stable. Patient remains in intensive care unit on AVAPS mode. Patient states his breathing is better today. He has remained afebrile, heart rate 60s, blood pressure 109/62. 09/21: Patient remains in intensive care unit. He was on BiPAP until 3 AM and was transitioned to high flow O2 at 5 L pulse oxing 96%. He has been cleared to transfer to [facility] floor with telemetry. Patient has been afebrile, heart rate 84, blood pressure 102/56, pulse ox 90% on 5 L high flow O2. Urine drug screen was ordered yesterday by Dr. Magallon which came back negative. Repeat lab work this morning reveals them 11 8.8, white count 8.0, platelet count 126, CO2 was increased to 58. Objective - Vital Signs Vital signs: Vital Signs Temp 97.7 F 09/21/18 08:00 Pulse 84 09/21/18 12:05 Resp 17 09/21/18 09:00 BP 102/56 09/21/18 09:00 Pulse Ox 98 09/21/18 09:00 Intake & Output 09/20/18 09/21/18 09/21/18 18:59 06:59 18:59 Intake Total 1120 120 200 Output Total 450 275 250 Balance 670 -155 -50 Weight 49.5 kg 49.5 kg Intake: IV 160 120 80 KVO 110 120 30 cefTRIAXone 2 gm In 50 50 Sodium Chloride 0.9% 50 ml @ 100 mls/hr IVPB Q24HR [facility] Rx#:[id number] Oral 960 120 Output: Urine 450 275 250 Other: Voiding Method Urinal Urinal Urinal # Voids 1 0 1 - Exam ROS Constitutional: Denies chills, Denies fever, endorses lethargy, endorses malaise, Denies poor appetite,endorses weakness, Denies weight loss Eyes: denies decreased vision, denies diplopia, denies discharge, denies pain Ears: deny: decreased hearing Ears, nose, mouth and throat: Denies dental pain, Denies headache, Denies nasal discharge, Denies nose pain Cardiovascular: Denies chest pain, Denies decreased exercise tolerance, Denies edema, Denies high blood pressure, Denies irregular heart beat, Denies palpitations, Denies paroxysmal nocturnal dyspnea, Denies rapid heart beat, endorses shortness of breath Respiratory: Endorses cough with sputum, endorses dyspnea, endorses home oxygen, endorses wheezing Gastrointestinal: Denies abdominal pain, Denies change in bowel habits, Denies coffee ground emesis, Denies early satiety, Denies excessive gas, Denies heartburn, Denies hematemesis, Denies hematochezia, Denies loss of appetite, Denies nausea, Denies vomiting Genitourinary: Denies dysuria, Denies flank pain, Denies kidney stones, Denies menorrhagia, Denies urgency, Denies urinary frequency Musculoskeletal: Denies gait dysfunction, Denies limitation of motion, Denies morning stiffness, Denies muscle cramps Integumentary: Denies rash, Denies wounds, Denies brittle nails, Denies change in hair/nails, Denies darkening of skin Neurological: Denies balance difficulties, Denies change in speech, Denies double vision, Denies gait dysfunction, Denies loss of vision, Denies motor disturbance, Denies numbness, Denies paralysis, Denies paresthesias, Denies seizures Denies confusion Psychiatric: Denies anxiety, Denies depression Endocrine: Denies excessive sweating, Denies excessive thirst, Denies high blood sugars, Denies palpitations Hematologic/Lymphatic: Denies easy bruising, Denies lymphadenopathy - Constitutional General appearance: average body habitus, cooperative, disheveled, no distress. - EENT Eyes: anicteric sclerae, EOMI, PERRLA, poor dentition, normal appearance Ears: bilateral: normal - Neck Neck:allison was supple and without jugular venous distension, thyromegaly, or carotid bruits. Carotids were easily palpable bilaterally. There was no adenopathy. Carotids: bilateral: upstroke normal Thyroid: bilateral: normal size - Respiratory Respiratory: left: rales, bilateral: diminished, with the decreased breath sounds, bronchial sounds present negative: dullness - Cardiovascular Rhythm: regular Heart sounds: Cardiac exam revealed the PMI to be normally situated and sized. The rhythm was regular and no extrasystoles were noted during several minutes of auscultation. The first and second heart sounds were normal and physiologic splitting of the second heart sound was noted. There were no murmurs, rubs, clicks, or gallops. Overall heart sounds are distant - Gastrointestinal General gastrointestinal: decreased bowel sounds, normal bowel sounds, soft - Integumentary Integumentary: normal turgor - Neurologic Neurologic: CNII-XII intact - Musculoskeletal Musculoskeletal: gait normal, generalized weakness, strength equal bilaterally - Psychiatric Psychiatric: Awake, oriented 3, appropriate affect, intact judgment & insight - Labs CBC & Chem 7: 09/21/18 04:12 09/21/18 04:12 Labs: Abnormal Lab Results - Last 24 Hours (Table) 09/20/18 09/20/18 09/20/18 Range/Units 12:05 16:48 16:59 RBC (4.30-5.90) m/uL Hgb (13.0-17.5) gm/dL Hct (39.0-53.0) % MCV (80.0-100.0) fL MCHC (31.0-37.0) g/dL Plt Count (150-450) k/uL Lymphocytes # (1.0-4.8) k/uL Chloride (98-107) mmol/L Carbon Dioxide (22-30) mmol/L BUN (9-20) mg/dL Creatinine (0.66-1.25) mg/dL Glucose (74-99) mg/dL POC Glucose (mg/dL) 139 H 304 H 262 H (75-99) mg/dL 09/20/18 09/21/18 09/21/18 Range/Units 21:06 04:12 04:12 RBC 2.99 L (4.30-5.90) m/uL Hgb 8.8 L (13.0-17.5) gm/dL Hct 30.1 L (39.0-53.0) % MCV 100.6 H (80.0-100.0) fL MCHC 29.4 L (31.0-37.0) g/dL Plt Count 126 L (150-450) k/uL Lymphocytes # 0.4 L (1.0-4.8) k/uL Chloride 84 L (98-107) mmol/L Carbon Dioxide 58 H* (22-30) mmol/L BUN 34 H (9-20) mg/dL Creatinine 0.36 L (0.66-1.25) mg/dL Glucose 135 H (74-99) mg/dL POC Glucose (mg/dL) 184 H (75-99) mg/dL 09/21/18 09/21/18 Range/Units 06:52 11:43 RBC (4.30-5.90) m/uL Hgb (13.0-17.5) gm/dL Hct (39.0-53.0) % MCV (80.0-100.0) fL MCHC (31.0-37.0) g/dL Plt Count (150-450) k/uL Lymphocytes # (1.0-4.8) k/uL Chloride (98-107) mmol/L Carbon Dioxide (22-30) mmol/L BUN (9-20) mg/dL Creatinine (0.66-1.25) mg/dL Glucose (74-99) mg/dL POC Glucose (mg/dL) 170 H 219 H (75-99) mg/dL Microbiology - Last 24 Hours (Table) 09/16/18 18:09 Blood Culture - Preliminary Blood No Growth after 96 hours Assessment and Plan Plan: 1. Acute on chronic hypoxic hypercapnic respiratory failure secondary to COPD exacerbation and left lower lobe pneumonia. Patient will be placed on azithromycin and ceftriaxone IV, DuoNeb treatments [id number] and every 4 hours as needed, continue Pulmicort twice daily, Perforomist twice daily, Solu- Medrol 60 mg IV every 6 hours. Theophylline 400 mg daily. Continue Rocephin and Zithromax. Consult with Dr. Sherita kirkland. 2. Acute hypoxic encephalopathy secondary to CO2 narcosis. Patient was moved to the intensive care unit. Continue BiPAP when necessary, currently on high flow nasal cannula. 3. Hypertension. Continue losartan 50 mg daily. 3. Hyperlipidemia. Continue Lipitor 10 mg at bedtime. 4. Tobacco use and dependence. Patient counseled regarding smoking cessation. Nicotine patch 14 mg daily. 5. CODE STATUS: Full code. 6. GI prophylaxis. Pepcid 20 mg twice daily. 7. DVT prophylaxis. Lovenox 40 mg subcu daily. Prognosis guarded. Discharge plan: May require subacute rehab. Impression and plan of care have been directed as dictated by the signing physician. Anamaria Gaming nurse practitioner acting as scribe for signing physician.
[2018-09-21 16:59] LABS: Glucose,Whole Blood 230 mg/dL (75-99)
[2018-09-21 19:54] LABS: Glucose,Whole Blood 151 mg/dL (75-99)
[2018-09-21] MEDS: ATORVASTATIN 10 MG TAB PO SCH (20:18)
[2018-09-22] MEDS: methylPREDNISolone SOD SUCCI 125 MG/2 ML VIAL IV SCH ×2 (05:33→13:20)
[2018-09-22] MEDS: INSULIN ASPART (NovoLOG) 100 UNIT/ML VIAL SQ SCH ×5 (06:41→21:40)
[2018-09-22 07:12] LABS: Glucose,Whole Blood 143 mg/dL (75-99)
[2018-09-22] MEDS: IPRATROPIUM-ALBUTEROL 3 ML NEB INHALATION SCH ×4 (07:48→20:06)
[2018-09-22] MEDS: FORMOTEROL FUMARATE 20 MCG/2 ML NEBU INHALATION SCH ×2 (07:48→20:06)
[2018-09-22] MEDS: BUDESONIDE 0.5 MG/2 ML NEBU INHALATION SCH ×2 (07:48→20:06)
[2018-09-22] MEDS: ENOXAPARIN 40 MG/0.4 ML SYRINGE SQ SCH (08:20)
[2018-09-22] MEDS: NICOTINE 14MG/24HR PATCH TRANSDERM SCH (08:21)
[2018-09-22] MEDS: AZITHROMYCIN 500 MG TAB PO SCH (08:21)
[2018-09-22] MEDS: FAMOTIDINE 20 MG TAB PO SCH ×2 (08:21→21:40)
[2018-09-22] MEDS: LOSARTAN 50 MG TAB PO SCH (08:21)
[2018-09-22] MEDS: THEOPHYLLINE 24 HOUR 200 MG CAP.ER.24H PO SCH (08:21)
[2018-09-22 11:06] LABS: Glucose,Whole Blood 268 mg/dL (75-99)
[2018-09-22 11:37] LABS: African American GFR (CKD) >90 (>60 ml/min/1.73 sqM); Albumin 3.2 g/dL (3.5-5.0); Chloride 82 mmol/L (98-107); Glucose 260 mg/dL (74-99); Potassium 4.5 mmol/L (3.5-5.1); Sodium 139 mmol/L (137-145); Total Protein 5.2 g/dL (6.3-8.2)
[2018-09-22 11:38] LABS: ALT 44 U/L (21-72); AST 22 U/L (17-59); Alkaline Phosphatase 59 U/L (38-126); Blood Urea Nitrogen 28 mg/dL (9-20); Calcium 9.3 mg/dL (8.4-10.2); Total Bilirubin 0.2 mg/dL (0.2-1.3)
[2018-09-22 11:44] LABS: Anion Gap -3 mmol/L
[2018-09-22 12:22] LABS: Carbon Dioxide 60 mmol/L (22-30)
[2018-09-22] MEDS ORDERED: INSULIN ASPART (NovoLOG) 100 UNIT/ML VIAL SQ ONE (12:47)
--- NOTE | 2018-09-22 13:39 | P.PN ---
Subjective This is a 53-year-old male patient of Dr. Plata and Dr. Magallon with past medical history of COPD, chronic hypoxic respiratory failure on 3 L of oxygen at home, hyperlipidemia, hypertension, tobacco use and dependence. Patient complains of increasing shortness of breath and cough with clear sputum this been going on for 2 days. He denies having any fever. He is currently on home O2 at 3-1/2-4 L nasal cannula. He denies any lower extremity edema. He denies history of heart failure, [place], stroke. He denies any choking episodes. He does have a nebulizer home O2 and a portable tank at home. He does not have CPAP. Patient continues to smoke half a pack per day Patient came into [facility] emergency center for evaluation by EMS with a documented pulse ox dropped to 40% with mental status changes. He was placed on CPAP by EMS and oxygenation improved to the 80s as well as mental status. He was afebrile, heart rate 111, respirations 26, pulse ox 92 on oxygen, blood pressure 109/62. CO2 49, EKG was a sinus tachycardia without acute ST changes. ProBNP 263. Lactic acid 4.3, troponin 0.012. Venous blood gas showed pH of 7.34, pCO2 95 and bicarbonate 50. Chest x-ray reveals new perihilar patchy pulmonary edema and worse in the left lower lobe compared to old exam. This could relate to acute pneumonia. There is underlying COPD. Patient was admitted to the cardiac stepdown unit and started on nebulizer treatments, Solu-Medrol. Subsequently, CT of the chest was requested that revealed basilar ground glass infiltrates with air space infiltrate left lower lobe a reflect underlying pneumonia. Small bilateral pleural effusions. 8.8 mm left lower lobe pulmonary nodule. Follow-up CT in 3 months advised. Centrilobular emphysema. Consult Dr. Magallon added. 09/18 patient evaluated today is resting comfortably on bed currently on 6 L of oxygen saturating at 98%. Patient complains of increased weakness.. Vitals assessed suggested temp of 98 pulse 80 respiratory rate 18 blood pressure 105/64. Will titrate down the oxygen to keep saturation 80-90%. Continue IV steroids. Continue ceftriaxone and azithromycin for COPD exacerbation.I will discontinue IV fluidsas patient appears to be hypoxic and has decreased air entry bilaterally 09/19 patient evaluated today lying comfortably in bed. Appears to be slightly confused. Labs evaluated suggested a WBC of 12.6 hemoglobin 10.6 and MCV 103. BNP suggests a bicarb of 52 potassium 5.2. Stat ABG ordered patient to be placed on BiPAP if respiratory acidosis seen. 09/20: Stat ABGs from yesterday revealed a pH of 7.18, pCO2 greater than 120, pO2 72, bicarb greater than 120, O2 saturation 92.8. Patient was transferred to the intensive care unit and Dr. Kilgore was covering for Dr. Magallon. Patient did not require intubation but was placed on AVAPS. He was started on Perforomist and oral theophylline. Repeat lab work this morning reveals white count of 8.6, hemoglobin 9.5, platelet count 117. Sodium 139, potassium 5.4, chloride 86, CO2 54, BUN 29 creatinine 0.28. Blood sugars are running 122-146. Repeat chest x- ray reveals COPD with suspected interstitial chronic lung disease with superimposed interstitial pneumonitis or venous congestion appears stable. Patient remains in intensive care unit on AVAPS mode. Patient states his breathing is better today. He has remained afebrile, heart rate 60s, blood pressure 109/62. 09/21: Patient remains in intensive care unit. He was on BiPAP until 3 AM and was transitioned to high flow O2 at 5 L pulse oxing 96%. He has been cleared to transfer to [facility] floor with telemetry. Patient has been afebrile, heart rate 84, blood pressure 102/56, pulse ox 90% on 5 L high flow O2. Urine drug screen was ordered yesterday by Dr. Magallon which came back negative. Repeat lab work this morning reveals them 11 8.8, white count 8.0, platelet count 126, CO2 was increased to 58. 7/10 patient evaluated at bedside breathing comfortably on 5 L of high flow cannula. CMP suggest a CO2 of 60 which is worse than last CMP. Discussed in detail about placement of BiPAP mask on patient but patient refused on multiple occasion. He might rated at night but is not sure of it. Patient likes to go home but was convinced to stay for couple of days to get her breathing better. Patient is a poor prognosis and has a risk of respiratory failure due to increased CO2 retention but refuses to use BiPAP. Objective - Vital Signs Vital signs: Vital Signs Temp 98.0 F 09/22/18 11:58 Pulse 85 09/22/18 11:58 Resp 16 09/22/18 11:58 BP 108/61 09/22/18 11:58 Pulse Ox 96 09/22/18 11:58 Intake & Output 09/21/18 09/22/18 09/22/18 18:59 06:59 18:59 Intake Total 580 830 Output Total 400 350 Balance 180 480 Weight 49.5 kg Intake: IV 100 KVO 50 cefTRIAXone 2 gm In 50 Sodium Chloride 0.9% 50 ml @ 100 mls/hr IVPB Q24HR [facility] Rx#:[id number] Oral 480 830 Output: Urine 400 350 Other: Voiding Method Urinal Urinal # Voids 1 # Bowel Movements 1 - Exam - Constitutional General appearance: cooperative, no acute distress, cachectic - EENT Eyes: anicteric sclerae, PERRLA, normal appearance ENT: hearing grossly normal - Neck Neck: no lymphadenopathy, normal ROM, no other, no rigidity, no stridor, no thyromegaly - Respiratory Respiratory:bilateral decreased air entry with minimal movement in the upperlobes and lower - Cardiovascular Rhythm: regular Heart sounds: normal: S1, S2 Abnormal Heart Sounds: no systolic murmur, no diastolic murmur, no rub, no S3 Gallop, no S4 Gallop, no click, no other - Gastrointestinal General gastrointestinal: normal bowel sounds, soft - Integumentary Integumentary: no rash - Neurologic Neurologic: CNII-XII intact - Musculoskeletal Musculoskeletal: gait normal, strength equal bilaterally - Psychiatric Psychiatric: A&O x's 3, appropriate affect - Labs CBC & Chem 7: 09/21/18 04:12 09/22/18 11:01 Labs: Abnormal Lab Results - Last 24 Hours (Table) 09/21/18 09/21/18 09/22/18 Range/Units 16:47 19:53 07:08 Chloride (98-107) mmol/L Carbon Dioxide (22-30) mmol/L BUN (9-20) mg/dL Creatinine (0.66-1.25) mg/dL Glucose (74-99) mg/dL POC Glucose (mg/dL) 230 H 151 H 143 H (75-99) mg/dL Total Protein (6.3-8.2) g/dL Albumin (3.5-5.0) g/dL 09/22/18 09/22/18 Range/Units 11:01 11:02 Chloride 82 L (98-107) mmol/L Carbon Dioxide 60 H* (22-30) mmol/L BUN 28 H (9-20) mg/dL Creatinine 0.34 L (0.66-1.25) mg/dL Glucose 260 H (74-99) mg/dL POC Glucose (mg/dL) 268 H (75-99) mg/dL Total Protein 5.2 L (6.3-8.2) g/dL Albumin 3.2 L (3.5-5.0) g/dL Microbiology - Last 24 Hours (Table) 09/16/18 18:09 Blood Culture - Preliminary Blood No Growth after 120 hours Assessment and Plan Plan: 1. Acute on chronic hypoxic hypercapnic respiratory failure secondary to COPD exacerbation and left lower lobe pneumonia. Patient will be placed on azithromycin and ceftriaxone IV, DuoNeb treatments 4 times daily and every 4 hours as needed, Solu-Medrol 40 mg IV every 6 hours, Pulmicort 0.5 mg twice daily. titrate down oxygen to keep SpO2 goal of 80-90%Consult with Dr. Magallon. He continues to refuse BiPAP currently is on 5 L high flow oxygen on but it needs to be on BiPAP for improvement 2. Hypertension. Continue losartan 50 mg daily. 3. Hyperlipidemia. Continue Lipitor 10 mg at bedtime. 4. Tobacco use and dependence. Patient counseled regarding smoking cessation. Nicotine patch 14 mg daily. 5. CODE STATUS: Full code. 6. GI prophylaxis. Pepcid 20 mg twice daily. 7. DVT prophylaxis. Lovenox 40 mg subcu daily. 8 encephalopathy likely secondary to CO2 narcosis improved 9 hyperglycemia HbA1c ordered. Continue insulin sliding scale. If not controlled will put on insulin
--- NOTE | 2018-09-22 15:24 | P.PN ---
Subjective Progress Note Date: 09/22/18 Principal diagnosis: Acute COPD exacerbation, pneumonia, left lung nodule, chronic respiratory failure with acute exacerbation, smoking 09/22/2018, patient seen eval reexamined during the rounds breathing relatively better denies any chest pain patient is back to 5 L oxygen oxygen he has refused to use of BiPAP cough congestion shortness of breath has improved though continued to require breathing treatments labs reviewed medications reviewed 09/21/2018, patient is a seen and evaluated examined in ICU he is breathing better in terms of chest pain or shortness of breath but is still on activity or short of breath he is on 5 due to her oxygen he declined use of BiPAP machine anymore, he is more awake oriented 3 has still some cough labs reviewed medications reviewed, chest x-ray from earlier today revealed bilateral basal interstitial prominence likely due to COPD but pneumonia cannot be excluded 09/18/2018, patient seen and evaluated examined during the rounds breathing is stabilized is still requiring breathing treatment on supplemental oxygen denies any chest pain is still short of breath on minimal activity and exertion Mr. Varghese is a 53-year-old male seen and evaluated examined on third floor patient has a history of chronic hypoxic respiratory failure on 3 L of oxygen at home, hyperlipidemia, hypertension, tobacco use and dependence. Patient compla ins of increasing shortness of breath and cough with clear sputum this been going on for 2 days. He denies having any fever. He is currently on home O2 at 3-1/2-4 L nasal cannula. He denies any lower extremity edema. He denies history of heart failure, [place], stroke. He denies any choking episodes. He does have a nebulizer home O2 and a portable tank at home. He does not have CPAP. Patient continues to smoke half a pack per day Patient came into [facility] emergency center for evaluation by EMS with a documented pulse ox dropped to 40% with mental status changes. He was placed on CPAP by EMS and oxygenation improved to the 80s as well as mental status. He was afebrile, heart rate 111, respirations 26, pulse ox 92 on oxygen, blood pressure 109/62. CO2 49, EKG was a sinus tachycardia without acute ST changes. ProBNP 263. Lactic acid 4.3, troponin 0.012. Venous blood gas showed pH of 7.34, pCO2 95 and bicarbonate 50. Chest x-ray reveals new perihilar patchy pulmonary edema and worse in the left lower lobe compared to old exam. This could relate to acute pneumonia. There is underlying COPD. Patient was admitted to the cardiac stepdown unit and started on nebulizer treatments, Solu-Medrol. Subsequently, CT of the chest was requested that revealed basilar ground glass infiltrates with air space infiltrate left lower lobe a reflect underlying pneumonia. Small bilateral pleural effusions. 8.8 mm left lower lobe pulmonary nodule. Follow-up CT in 3 months advised. Centrilobular emphysema. Objective - Vital Signs Vital signs: Vital Signs Temp 98.0 F 09/22/18 11:58 Pulse 85 09/22/18 11:58 Resp 16 09/22/18 11:58 BP 108/61 09/22/18 11:58 Pulse Ox 96 09/22/18 11:58 Intake & Output 09/21/18 09/22/18 09/22/18 18:59 06:59 18:59 Intake Total 580 830 50 Output Total 400 350 Balance 180 480 50 Weight 49.5 kg Intake: IV 100 50 KVO 50 cefTRIAXone 2 gm In 50 50 Sodium Chloride 0.9% 50 ml @ 100 mls/hr IVPB Q24HR [facility] Rx#:[id number] Oral 480 830 Output: Urine 400 350 Other: Voiding Method Urinal Urinal # Voids 1 3 # Bowel Movements 1 - Exam - Constitutional General appearance: average body habitus, cooperative, disheveled, mild distress - EENT Eyes: anicteric sclerae, EOMI, PERRLA, poor dentition, normal appearance Ears: bilateral: normal - Neck Neck: normal ROM Carotids: bilateral: upstroke normal Thyroid: bilateral: normal size - Respiratory Respiratory: left: rales, bilateral: diminished, rhonchi, wheezing (During forced expiration), negative: dullness - Cardiovascular Rhythm: regular Heart sounds: normal: S1, S2 - Gastrointestinal General gastrointestinal: decreased bowel sounds, normal bowel sounds, soft - Integumentary Integumentary: normal turgor - Neurologic Neurologic: CNII-XII intact - Musculoskeletal Musculoskeletal: gait normal, generalized weakness, strength equal bilaterally - Psychiatric Psychiatric: A&O x's 3, appropriate affect, intact judgment & insight - Labs CBC & Chem 7: 09/21/18 04:12 09/22/18 11:01 Labs: Abnormal Lab Results - Last 24 Hours (Table) 07/09/19 07/09/19 07/10/19 Range/Units 16:47 19:53 07:08 Chloride (98-107) mmol/L Carbon Dioxide (22-30) mmol/L BUN (9-20) mg/dL Creatinine (0.66-1.25) mg/dL Glucose (74-99) mg/dL POC Glucose (mg/dL) 230 H 151 H 143 H (75-99) mg/dL Total Protein (6.3-8.2) g/dL Albumin (3.5-5.0) g/dL 09/22/18 09/22/18 Range/Units 11:01 11:02 Chloride 82 L (98-107) mmol/L Carbon Dioxide 60 H* (22-30) mmol/L BUN 28 H (9-20) mg/dL Creatinine 0.34 L (0.66-1.25) mg/dL Glucose 260 H (74-99) mg/dL POC Glucose (mg/dL) 268 H (75-99) mg/dL Total Protein 5.2 L (6.3-8.2) g/dL Albumin 3.2 L (3.5-5.0) g/dL Microbiology - Last 24 Hours (Table) 09/16/18 18:09 Blood Culture - Preliminary Blood No Growth after 120 hours Assessment and Plan Assessment: Acute hypoxic and hypercapnic respiratory failure Bilateral pneumonia Acute COPD exacerbation Left upper lobe pulmonary nodule 0.8 cm Hypertension hypertensive cardiovascular disease Active smoker nicotine abuse Noncompliant status Plan: Broad-spectrum antibiotics IV steroids Breathing treatments Continue home medications Smoking cessation advice Supplemental oxygen titrated oxygen down as tolerated Deep breathing exercises and incentive spirometry Follow-up as outpatient Computed tomography scan in 3 months Further recommendations pending plan of care as per clinical response of the patient Time with Patient: Greater than 30
[2018-09-22 17:16] LABS: Glucose,Whole Blood 148 mg/dL (75-99)
[2018-09-22] MEDS: methylPREDNISolone SOD SUCCI 40 MG/ML 1 ML VIAL IV SCH (18:02)
[2018-09-22 19:29] LABS: Glucose,Whole Blood 185 mg/dL (75-99)
[2018-09-22] MEDS: ATORVASTATIN 10 MG TAB PO SCH (21:40)
[2018-09-23] MEDS: methylPREDNISolone SOD SUCCI 40 MG/ML 1 ML VIAL IV SCH ×3 (00:33→12:28)
[2018-09-23] MEDS: FORMOTEROL FUMARATE 20 MCG/2 ML NEBU INHALATION SCH (07:15)
[2018-09-23] MEDS: BUDESONIDE 0.5 MG/2 ML NEBU INHALATION SCH (07:15)
[2018-09-23] MEDS: IPRATROPIUM-ALBUTEROL 3 ML NEB INHALATION SCH ×3 (07:15→15:41)
[2018-09-23 07:29] LABS: Glucose,Whole Blood 151 mg/dL (75-99)
[2018-09-23] MEDS: AZITHROMYCIN 500 MG TAB PO SCH (08:24)
[2018-09-23] MEDS: THEOPHYLLINE 24 HOUR 200 MG CAP.ER.24H PO SCH (08:25)
[2018-09-23] MEDS: ENOXAPARIN 40 MG/0.4 ML SYRINGE SQ SCH (08:25)
[2018-09-23] MEDS: NICOTINE 14MG/24HR PATCH TRANSDERM SCH (08:25)
[2018-09-23] MEDS: LOSARTAN 50 MG TAB PO SCH (08:25)
[2018-09-23] MEDS: FAMOTIDINE 20 MG TAB PO SCH (08:26)
[2018-09-23] MEDS: INSULIN ASPART (NovoLOG) 100 UNIT/ML VIAL SQ SCH ×2 (08:31→12:28)
[2018-09-23 09:55] LABS: ALT 40 U/L (21-72); AST 23 U/L (17-59); African American GFR (CKD) >90 (>60 ml/min/1.73 sqM); Albumin 3.3 g/dL (3.5-5.0); Alkaline Phosphatase 55 U/L (38-126); Blood Urea Nitrogen 27 mg/dL (9-20); Calcium 9.2 mg/dL (8.4-10.2); Chloride 81 mmol/L (98-107); Glucose 172 mg/dL (74-99); Potassium 4.4 mmol/L (3.5-5.1); Sodium 140 mmol/L (137-145); Total Bilirubin 0.3 mg/dL (0.2-1.3); Total Protein 5.3 g/dL (6.3-8.2)
[2018-09-23 10:01] LABS: Anion Gap 0 mmol/L
[2018-09-23 10:02] LABS: Carbon Dioxide 59 mmol/L (22-30)
[2018-09-23 11:28] LABS: Glucose,Whole Blood 174 mg/dL (75-99)
[2018-09-23 11:40] VITALS: BP 121/62; RESP 18; TEMP 96
[2018-09-23 15:43] VITALS: PULSE 80
--- NOTE | 2018-09-23 18:22 | P.PN ---
Subjective Progress Note Date: 09/23/18 Principal diagnosis: Acute COPD exacerbation, pneumonia, left lung nodule, chronic respiratory failure with acute exacerbation, smoking 09/23/2018, patient seen eval reexamined during the rounds denies any chest pain, ongoing shortness of breath is present patient refuses to use BiPAP he remains on 5 L oxygen nasal cannula sats are 96% 09/22/2018, patient seen eval reexamined during the rounds breathing relatively better denies any chest pain patient is back to 5 L oxygen oxygen he has refused to use of BiPAP cough congestion shortness of breath has improved though continued to require breathing treatments labs reviewed medications reviewed 09/21/2018, patient is a seen and evaluated examined in ICU he is breathing better in terms of chest pain or shortness of breath but is still on activity or short of breath he is on 5 due to her oxygen he declined use of BiPAP machine anymore, he is more awake oriented 3 has still some cough labs reviewed medications reviewed, chest x-ray from earlier today revealed bilateral basal interstitial prominence likely due to COPD but pneumonia cannot be excluded 09/18/2018, patient seen and evaluated examined during the rounds breathing is stabilized is still requiring breathing treatment on supplemental oxygen denies any chest pain is still short of breath on minimal activity and exertion Mr. Varghese is a 53-year-old male seen and evaluated examined on third floor patient has a history of chronic hypoxic respiratory failure on 3 L of oxygen at home, hyperlipidemia, hypertension, tobacco use and dependence. Patient [place] of increasing shortness of breath and cough with clear sputum this been going on for 2 days. He denies having any fever. He is currently on home O2 at 3-1/2-4 L nasal cannula. He denies any lower extremity edema. He denies history of heart failure, [place], stroke. He denies any choking episodes. He does have a nebulizer home O2 and a portable tank at home. He does not have CPAP. Patient continues to smoke half a pack per day Patient came into [facility] emergency center for evaluation by EMS with a documented pulse ox dropped to 40% with mental status changes. He was placed on CPAP by EMS and oxygenation improved to the 80s as well as mental status. He was afebrile, heart rate 111, respirations 26, pulse ox 92 on oxygen, blood pressure 109/62. CO2 49, EKG was a sinus tachycardia without acute ST changes. ProBNP 263. Lactic acid 4.3, troponin 0.012. Venous blood gas showed pH of 7.34, pCO2 95 and bicarbonate 50. Chest x-ray reveals new perihilar patchy pulmonary edema and worse in the left lower lobe compared to old exam. This could relate to acute pneumonia. There is underlying COPD. Patient was admitted to the cardiac stepdown unit and started on nebulizer treatments, Solu-Medrol. Subsequently, CT of the chest was requested that revealed basilar ground glass infiltrates with air space infiltrate left lower lobe a reflect underlying pneumonia. Small bilateral pleural effusions. 8.8 mm left lower lobe pulmonary nodule. Follow-up CT in 3 months advised. Centrilobular emphysema. Objective - Vital Signs Vital signs: Vital Signs Temp 96.0 F L 09/23/18 11:23 Pulse 80 09/23/18 16:03 Resp 18 09/23/18 11:23 BP 121/62 09/23/18 11:23 Pulse Ox 96 09/23/18 11:23 Intake & Output 09/22/18 09/23/18 09/23/18 18:59 06:59 18:59 Intake Total 290 350 240 Balance 290 350 240 Intake: IV 50 cefTRIAXone 2 gm In 50 Sodium Chloride 0.9% 50 ml @ 100 mls/hr IVPB Q24HR [facility] Rx#:[id number] Oral 240 350 240 Other: Voiding Method Urinal Urinal # Voids 3 1 - Exam - Constitutional General appearance: average body habitus, cooperative, disheveled, mild distress - EENT Eyes: anicteric sclerae, EOMI, PERRLA, poor dentition, normal appearance Ears: bilateral: normal - Neck Neck: normal ROM Carotids: bilateral: upstroke normal Thyroid: bilateral: normal size - Respiratory Respiratory: left: rales, bilateral: diminished, rhonchi, wheezing (During forced expiration), negative: dullness - Cardiovascular Rhythm: regular Heart sounds: normal: S1, S2 - Gastrointestinal General gastrointestinal: decreased bowel sounds, normal bowel sounds, soft - Integumentary Integumentary: normal turgor - Neurologic Neurologic: CNII-XII intact - Musculoskeletal Musculoskeletal: gait normal, generalized weakness, strength equal bilaterally - Psychiatric Psychiatric: A&O x's 3, appropriate affect, intact judgment & insight - Labs CBC & Chem 7: 09/21/18 04:12 09/23/18 08:46 Labs: Abnormal Lab Results - Last 24 Hours (Table) 09/22/18 09/23/18 09/23/18 Range/Units 19:27 07:21 08:46 Chloride 81 L (98-107) mmol/L Carbon Dioxide 59 H* (22-30) mmol/L BUN 27 H (9-20) mg/dL Creatinine 0.42 L (0.66-1.25) mg/dL Glucose 172 H (74-99) mg/dL POC Glucose (mg/dL) 185 H 151 H (75-99) mg/dL Total Protein 5.3 L (6.3-8.2) g/dL Albumin 3.3 L (3.5-5.0) g/dL 09/23/18 Range/Units 11:21 Chloride (98-107) mmol/L Carbon Dioxide (22-30) mmol/L BUN (9-20) mg/dL Creatinine (0.66-1.25) mg/dL Glucose (74-99) mg/dL POC Glucose (mg/dL) 174 H (75-99) mg/dL Total Protein (6.3-8.2) g/dL Albumin (3.5-5.0) g/dL Microbiology - Last 24 Hours (Table) 09/16/18 18:09 Blood Culture - Final Blood No Growth after 144 hours Assessment and Plan Assessment: Acute hypoxic and hypercapnic respiratory failure Bilateral pneumonia Acute COPD exacerbation Left upper lobe pulmonary nodule 0.8 cm Hypertension hypertensive cardiovascular disease Active smoker nicotine abuse Noncompliant status Plan: Broad-spectrum antibiotics, can be changed to oral Can be changed to oral prednisone Breathing treatments Continue home medications Smoking cessation advice Supplemental oxygen titrated oxygen down as tolerated Deep breathing exercises and incentive spirometry Follow-up as outpatient Computed tomography scan in 3 months Further recommendations pending plan of care as per clinical response of the patient
--- NOTE | 2018-09-24 09:49 | P.DS ---
Providers Date of admission: 09/16/18 19:33 Expected date of discharge: 09/23/18 Attending physician: Betty Orlando Consults: 09/17/18 10:15 Consult Physician Routine Consulting Provider: Ravindra Magallon Consult Reason/Comments: LLL pneumonia, COPD Do you want consulting provider notified?: Yes Primary care physician: Fabien [facility] Course: This is a 53-year-old male patient of Dr. Plata and Dr. Magallon with past medical history of COPD, chronic hypoxic respiratory failure on 3 L of oxygen at home, hyperlipidemia, hypertension, tobacco use and dependence. P atient complains of increasing shortness of breath and cough with clear sputum this been going on for 2 days. He denies having any fever. He is currently on home O2 at 3-1/2-4 L nasal cannula. He denies any lower extremity edema. He denies history of heart failure, [place], stroke. He denies any choking episodes. He does have a nebulizer home O2 and a portable tank at home. He does not have CPAP. Patient continues to smoke half a pack per day Patient came into [facility] emergency center for evaluation by EMS with a documented pulse ox dropped to 40% with mental status changes. He was placed on CPAP by EMS and oxygenation improved to the 80s as well as mental status. He was afebrile, heart rate 111, respirations 26, pulse ox 92 on oxygen, blood pressure 109/62. CO2 49, EKG was a sinus tachycardia without acute ST changes. ProBNP 263. Lactic acid 4.3, troponin 0.012. Venous blood gas showed pH of 7.34, pCO2 95 and bicarbonate 50. Chest x-ray reveals new perihilar patchy pulmonary edema and worse in the left lower lobe compared to old exam. This could relate to acute pneumonia. There is underlying COPD. Patient was admitted to the cardiac stepdown unit and started on nebulizer treatments, Solu-Medrol. Subsequently, CT of the chest was requested that revealed basilar ground glass infiltrates with air space infiltrate left lower lobe a reflect underlying pneumonia. Small bilateral pleural effusions. 8.8 mm left lower lobe pulmonary nodule. Follow-up CT in 3 months advised. Centrilobular emphysema. Consult Dr. Magallon added. 09/18 patient evaluated today is resting comfortably on bed currently on 6 L of oxygen saturating at 98%. Patient complains of increased weakness.. Vitals assessed suggested temp of 98 pulse 80 respiratory rate 18 blood pressure 105/64. Will titrate down the oxygen to keep saturation 80-90%. Continue IV steroids. Continue ceftriaxone and azithromycin for COPD exacerbation.I will discontinue IV fluidsas patient appears to be hypoxic and has decreased air entry bilaterally 09/19 patient evaluated today lying comfortably in bed. Appears to be slightly confused. Labs evaluated suggested a WBC of 12.6 hemoglobin 10.6 and MCV 103. BNP suggests a bicarb of 52 potassium 5.2. Stat ABG ordered patient to be placed on BiPAP if respiratory acidosis seen. 09/20: Stat ABGs from yesterday revealed a pH of 7.18, pCO2 greater than 120, pO2 72, bicarb greater than 120, O2 saturation 92.8. Patient was transferred to the intensive care unit and Dr. Kilgore was covering for Dr. Magallon. Patient did not require intubation but was placed on AVAPS. He was started on Perforomist and oral theophylline. Repeat lab work this morning reveals white count of 8.6, hemoglobin 9.5, platelet count 117. Sodium 139, potassium 5.4, chloride 86, CO2 54, BUN 29 creatinine 0.28. Blood sugars are running 122-146. Repeat chest x- ray reveals COPD with suspected interstitial chronic lung disease with superimposed interstitial pneumonitis or venous congestion appears stable. Patient remains in intensive care unit on AVAPS mode. Patient states his breathing is better today. He has remained afebrile, heart rate 60s, blood pressure 109/62. 09/21: Patient remains in intensive care unit. He was on BiPAP until 3 AM and was transitioned to high flow O2 at 5 L pulse oxing 96%. He has been cleared to transfer to [facility] floor with telemetry. Patient has been afebrile, heart rate 84, blood pressure 102/56, pulse ox 90% on 5 L high flow O2. Urine drug screen was ordered yesterday by Dr. Magallon which came back negative. Repeat lab work this morning reveals them 11 8.8, white count 8.0, platelet count 126, CO2 was increased to 58. 7/10 patient evaluated at bedside breathing comfortably on 5 L of high flow cannula. CMP suggest a CO2 of 60 which is worse than last CMP. Discussed in detail about placement of BiPAP mask on patient but patient refused on multiple occasion. He might rated at night but is not sure of it. Patient likes to go home but was convinced to stay for couple of days to get her breathing better. Patient is a poor prognosis and has a risk of respiratory failure due to increased CO2 retention but refuses to use BiPAP. 09/23: Patient is now pulse oxing 96% on 5 L which is his baseline. Heart rate in the 80s, blood pressure 121/62. Patient states his breathing is at his baseline. Repeat lab work shows a CO2 of 59, BUN 27 creatinine 0.42, blood sugars in the 170s. Discussed with Dr. Magallon and patient is cleared for discharge from his perspective. She'll be discharged home today in stable condition. Discharge diagnoses: 1. Acute on chronic hypoxic hypercapnic respiratory failure secondary to COPD exacerbation and left lower lobe pneumonia. 2. Acute hypoxic encephalopathy secondary to CO2 narcosis. 3. Hypertension. 3. Hyperlipidemia. 4. Tobacco use and dependence. 5. Hyperglycemia secondary to steroids. Discharge plan: Home Impression and plan of care have been directed as dictated by the signing physician. [employer] nurse practitioner acting as scribe for signing physician. Patient Condition at Discharge: Good Plan - Discharge Summary Discharge Rx Participant: No New Discharge Prescriptions: New Amoxicillin/Potassium Clav [Augmentin 875-125 Tablet] 1 tab PO BID 3 Days #6 tab Nicotine 14Mg/24Hr Patch [Habitrol] 1 patch TRANSDERM DAILY #30 patch predniSONE 20 mg PO DAILY #48 tab Theophylline 24 Hour [Cristiano-24] 400 mg PO DAILY #60 cap.er.24h Continue Ipratropium-Albuterol Nebulize [Duoneb 0.5 mg-3 mg/3 ml Soln] 3 ml INHALATION RT-QID #120 ampul.neb Losartan [Cozaar] 50 mg PO DAILY Beclomethasone Dipropionate [Qvar 80 mcg] 1 puff INHALATION RT-BID Atorvastatin Calcium [Lipitor] 10 mg PO HS Famotidine [Pepcid] 20 mg PO BID #14 tab Discharge Medication List Ipratropium-Albuterol Nebulize [Duoneb 0.5 mg-3 mg/3 ml Soln] 3 ml INHALATION RT-QID #120 ampul.neb 08/20/15 [Rx] Atorvastatin Calcium [Lipitor] 10 mg PO HS 07/07/17 [History] Beclomethasone Dipropionate [Qvar 80 mcg] 1 puff INHALATION RT-BID 07/07/17 [History] Losartan [Cozaar] 50 mg PO DAILY 07/07/17 [History] Famotidine [Pepcid] 20 mg PO BID #14 tab 07/10/17 [Rx] Amoxicillin/Potassium Clav [Augmentin 875-125 Tablet] 1 tab PO BID 3 Days #6 tab 09/23/18 [Rx] Nicotine 14Mg/24Hr Patch [Habitrol] 1 patch TRANSDERM DAILY #30 patch 09/23/18 [Rx] Theophylline 24 Hour [Cristiano-24] 400 mg PO DAILY #60 cap.er.24h 09/23/18 [Rx] predniSONE 20 mg PO DAILY #48 tab 09/23/18 [Rx] Follow up Appointment(s)/Referral(s): Fabien Plata DO [Primary Care Provider] - 09/30/18 2:45 pm Ravindra Magallon MD [STAFF PHYSICIAN] - 10/08/18 10:00 am Patient Instructions/Handouts: Prednisone (By mouth), Theophylline (By mouth), Nicotine (Into the mouth), Amoxicillin/Clavulanate Potassium (By mouth), Nicotine (Absorbed through the skin), Viral Pneumonia (DC), COPD (Chronic Obstructive Pulmonary Disease) (DC) Discharge Disposition: HOME SELF-CARE
== END 2018-09-23 16:15 | disposition home or self-care (01) | DRG 193 ==
LOC: EC 18:00 → 3SCARD 19:33 → 2SICU 09-19 15:16 → 3NMEDONC 09-21 17:27
PROVIDERS: ADMIT Family Medicine; ATTEND Family Medicine
PROC: 5A09557 Assistance with Respiratory Ventilation, Greater than 96 Consecutive Hours, Continuous Positive Airway Pressure (ICD-10-PCS; principal; 2018-09-16)
DX: J18.1 Lobar pneumonia, unspecified organism (principal); J96.21 Acute and chronic respiratory failure with hypoxia; J96.22 Acute and chronic respiratory failure with hypercapnia; G93.1 Anoxic brain damage, not elsewhere classified; J44.0 Chronic obstructive pulmonary disease with (acute) lower respiratory infection; J44.1 Chronic obstructive pulmonary disease with (acute) exacerbation; E87.2 Acidosis; R91.1 Solitary pulmonary nodule; J43.2 Centrilobular emphysema; T38.0X5A Adverse effect of glucocorticoids and synthetic analogues, initial encounter; I11.9 Hypertensive heart disease without heart failure; E78.5 Hyperlipidemia, unspecified; F17.210 Nicotine dependence, cigarettes, uncomplicated; F12.90 Cannabis use, unspecified, uncomplicated; Z91.19 Patient's noncompliance with other medical treatment and regimen; Z99.81 Dependence on supplemental oxygen; Z79.899 Other long term (current) drug therapy; Z79.51 Long term (current) use of inhaled steroids; Z79.4 Long term (current) use of insulin; Z82.49 Family history of ischemic heart disease and other diseases of the circulatory system; Z98.890 Other specified postprocedural states; Z82.61 Family history of arthritis; I25.2 Old myocardial infarction
CPT/HCPCS: 36415; 36600; 71045; 71250; 80048; 80053; 80306; 82803; 82805; 83605; 83735; 83880; 84484; 85025; 85610; 85730; 87040; 94640; 94660; 94760; 96365; 96375; 99285

== ENCOUNTER 2018-10-26 07:45 | Inpatient (IN) | payer MEDICARE ==
--- NOTE | 2018-10-26 07:59 | ED ---
General Adult HPI - General Stated complaint: altered mental Time Seen by Provider: 10/26/18 07:48 Source: EMS, old records reviewed Mode of arrival: EMS Limitations: altered mental status, physical limitation - History of Present Illness Initial comments: Patient is a 53-year-old male presenting to the emergency department with altered mental status. Patient reportedly was acting normal last night. There was a reported fall last night however no report of head trauma. Patient reportedly was doing fine after the fall and did not want to be checked out. Patient is unresponsive at this point and unable to provide any history. Patient reportedly was without his oxygen throughout the night. No reported seizure history. Patient does have a reported history of respiratory failure. - Related Data Home Medications Medication Instructions Recorded Confirmed Atorvastatin Calcium [Lipitor] 10 mg PO HS 07/07/17 10/26/18 Losartan [Cozaar] 50 mg PO DAILY 07/07/17 10/26/18 Previous Rx's Medication Instructions Recorded Ipratropium-Albuterol Nebulize 3 ml INHALATION RT-QID #120 08/20/15 [Duoneb 0.5 mg-3 mg/3 ml Soln] ampul.neb Allergies Allergy/AdvReac Type Severity Reaction Status Date / Time No Known Allergies Allergy Verified 10/26/18 07:55 Review of Systems ROS Statement: Those systems with pertinent positive or pertinent negative responses have been documented in the HPI. ROS Other: All systems not noted in ROS Statement are negative. Limitations: ROS unobtainable due to patients medical condition Past Medical History Past Medical History: COPD, Hyperlipidemia, Hypertension, Pneumonia Additional Past Medical History / Comment(s): Respiratory failure and has been vented, home O2 at 4L/NC, denies any hx of [place]. History of Any Multi-Drug Resistant Organisms: None Reported Past Surgical History: Hernia Repair, Orthopedic Surgery Additional Past Surgical History / Comment(s): R knee arthroscopy, R inguinal hernia repair. Past Anesthesia/Blood Transfusion Reactions: No Reported Reaction Past Psychological History: No Psychological Hx Reported Additional Psychological History / Comment(s): Pt resides with family. He has home O2 he normally uses at nite at 4 L He has a nebulizer. He drives. Smoking Status: Current every day smoker Past Alcohol Use History: Daily Additional Past Alcohol Use History / Comment(s): Pt started smoking in 1976 and continues to smoke a half pack a day. He does drink alcohol every couple days . The patient lives at home with his mother and there is a puppy in the home. Patient is a walker but does not use it. He has a nebulizer, home O2 on portable oxygen. No CPAP. Past Drug Use History: Marijuana Additional Drug Use History / Comment(s): Pt used to smoke marijuana daily but now only on occasion. - Past Family History Mother Family Medical History: Coronary Artery Disease (CAD), Osteoarthritis (OA) Additional Family Medical History / Comment(s): Mother had CABG. She is 86 yrs old. Father Family Medical History: No Reported History Additional Family Medical History / Comment(s): Father is healthy and in his 80s. General Exam Limitations: altered mental status, physical limitation General appearance: in no apparent distress, other (Patient is nonverbal and does not follow commands. Patient does open eyes to touch.) Head exam: Present: atraumatic, normocephalic Eye exam: Present: normal appearance, PERRL ENT exam: Present: other (There is some dried blood on the lips. Poor dentition.) Neck exam: Present: normal inspection. Absent: tenderness Respiratory exam: Present: normal lung sounds bilaterally Cardiovascular Exam: Present: regular rate, normal rhythm GI/Abdominal exam: Present: soft. Absent: tenderness Extremities exam: Present: normal inspection, full ROM. Absent: tenderness Neurological exam: Present: altered. Absent: motor sensory deficit Expanded Neurological exam: Present: protecting the airway, other (Nonverbal. Does not follow commands. Does move all extremities with good strength.) Motor strength exam: RUE: 5, LUE: 5, RLE: 5, LLE: 5 Eye Response: (3) open to voice Motor Response: (5) localizes to pain Verbal Response: incomprehensible sounds Psychiatric exam: Present: other (Nonverbal) Skin exam: Present: normal color. Absent: rash Course Vital Signs 10/26/18 10/26/18 10/26/18 07:50 08:21 09:12 Temperature 98.1 F Pulse Rate 110 H 100 101 H Respiratory 24 24 20 Rate Blood Pressure 134/70 120/70 O2 Sat by Pulse 90 L 93 L 100 Oximetry EKG Findings - EKG Comments: EKG Findings:: Sinus tachycardia 102. WA 1:30. QRS 74. QT 342. QTC 445. Right axis. Poor R-wave progression. No acute ST change. Medical Decision Making - Medical Decision Making Patient reevaluated twice. Patient is improved. Patient is easily arousable to voice and does attempt to talk however is difficult to understand while on BiPAP. Brother is present and updated. Brother states patient did have similar symptoms just around 1 month ago. Case was discussed in detail with Dr. Crowder, who will admit covering for Dr. Plata. He does recommend heparinization as well as consult with cardiology and pulmonary. - Lab Data Result diagrams: 10/26/18 08:05 10/26/18 08:05 Lab Results 10/26/18 10/26/18 10/26/18 Range/Units 07:55 08:05 08:05 WBC 9.3 (3.8-10.6) k/uL RBC 3.06 L (4.30-5.90) m/uL Hgb 9.6 L (13.0-17.5) gm/dL Hct 31.5 L (39.0-53.0) % MCV 102.9 H (80.0-100.0) fL MCH 31.5 (25.0-35.0) pg MCHC 30.6 L (31.0-37.0) g/dL RDW 13.8 (11.5-15.5) % Plt Count 154 (150-450) k/uL Neutrophils % 87 % Lymphocytes % 5 % Monocytes % 7 % Eosinophils % 0 % Basophils % 0 % Neutrophils # 8.1 H (1.3-7.7) k/uL Lymphocytes # 0.5 L (1.0-4.8) k/uL Monocytes # 0.7 (0-1.0) k/uL Eosinophils # 0.0 (0-0.7) k/uL Basophils # 0.0 (0-0.2) k/uL Hypochromasia Marked Macrocytosis Slight PT (9.0-12.0) sec INR (<1.2) APTT (22.0-30.0) sec Sample Site rt radial ABG pH 7.44 (7.35-7.45) ABG pCO2 87 H* (35-45) mmHg ABG pO2 55 L* (83-108) mmHg ABG HCO3 59 H* (21-25) mmol/L ABG Total CO2 62 H (19-24) mmol/L ABG O2 Saturation 92.0 L (94-97) % ABG Base Excess 35.3 mmol/L Ritchie Test Yes FiO2 36 % Sodium 139 (137-145) mmol/L Potassium 4.3 (3.5-5.1) mmol/L Chloride 82 L (98-107) mmol/L Carbon Dioxide 54 H* (22-30) mmol/L Anion Gap 3 mmol/L BUN 22 H (9-20) mg/dL Creatinine 0.32 L (0.66-1.25) mg/dL Est GFR (CKD-EPI)AfAm >90 (>60 ml/min/1.73 sqM) Est GFR (CKD-EPI)NonAf >90 (>60 ml/min/1.73 sqM) Glucose 117 H (74-99) mg/dL Calcium 9.5 (8.4-10.2) mg/dL Magnesium 1.7 (1.6-2.3) mg/dL Total Bilirubin 0.9 (0.2-1.3) mg/dL AST 25 (17-59) U/L ALT 32 (21-72) U/L Alkaline Phosphatase 62 (38-126) U/L Creatine Kinase 36 L (55-170) U/L Troponin I (0.000-0.034) ng/mL Total Protein 6.0 L (6.3-8.2) g/dL Albumin 3.8 (3.5-5.0) g/dL Urine Color Urine Appearance (Clear) Urine pH (5.0-8.0) Ur Specific [place] (1.001-1.035) Urine Protein (Negative) Urine Glucose (UA) (Negative) Urine Ketones (Negative) Urine Blood (Negative) Urine Nitrite (Negative) Urine Bilirubin (Negative) Urine Urobilinogen (<2.0) mg/dL Ur Leukocyte Esterase (Negative) Urine WBC (0-5) /hpf Hyaline Casts (0-2) /lpf Urine Mucus (None) /hpf Urine Opiates Screen (NotDetected) Ur Oxycodone Screen (NotDetected) Urine Methadone Screen (NotDetected) Ur Propoxyphene Screen (NotDetected) Ur Barbiturates Screen (NotDetected) U Tricyclic Antidepress (NotDetected) Ur Phencyclidine Scrn (NotDetected) Ur Amphetamines Screen (NotDetected) U Methamphetamines Scrn (NotDetected) U Benzodiazepines Scrn (NotDetected) Urine Cocaine Screen (NotDetected) U Marijuana (THC) Screen (NotDetected) Serum Alcohol <10 mg/dL 10/26/18 10/26/18 10/26/18 Range/Units 08:05 08:05 09:05 WBC (3.8-10.6) k/uL RBC (4.30-5.90) m/uL Hgb (13.0-17.5) gm/dL Hct (39.0-53.0) % MCV (80.0-100.0) fL MCH (25.0-35.0) pg MCHC (31.0-37.0) g/dL RDW (11.5-15.5) % Plt Count (150-450) k/uL Neutrophils % % Lymphocytes % % Monocytes % % Eosinophils % % Basophils % % Neutrophils # (1.3-7.7) k/uL Lymphocytes # (1.0-4.8) k/uL Monocytes # (0-1.0) k/uL Eosinophils # (0-0.7) k/uL Basophils # (0-0.2) k/uL Hypochromasia Macrocytosis PT 10.1 (9.0-12.0) sec INR 0.9 (<1.2) APTT 23.3 (22.0-30.0) sec Sample Site ABG pH (7.35-7.45) ABG pCO2 (35-45) mmHg ABG pO2 (83-108) mmHg ABG HCO3 (21-25) mmol/L ABG Total CO2 (19-24) mmol/L ABG O2 Saturation (94-97) % ABG Base Excess mmol/L Ritchie Test FiO2 % Sodium (137-145) mmol/L Potassium (3.5-5.1) mmol/L Chloride (98-107) mmol/L Carbon Dioxide (22-30) mmol/L Anion Gap mmol/L BUN (9-20) mg/dL Creatinine (0.66-1.25) mg/dL Est GFR (CKD-EPI)AfAm (>60 ml/min/1.73 sqM) Est GFR (CKD-EPI)NonAf (>60 ml/min/1.73 sqM) Glucose (74-99) mg/dL Calcium (8.4-10.2) mg/dL Magnesium (1.6-2.3) mg/dL Total Bilirubin (0.2-1.3) mg/dL AST (17-59) U/L ALT (21-72) U/L Alkaline Phosphatase (38-126) U/L Creatine Kinase (55-170) U/L Troponin I 0.040 H* (0.000-0.034) ng/mL Total Protein (6.3-8.2) g/dL Albumin (3.5-5.0) g/dL Urine Color Yellow Urine Appearance Clear (Clear) Urine pH 8.5 H (5.0-8.0) Ur Specific [place] 1.014 (1.001-1.035) Urine Protein 1+ H (Negative) Urine Glucose (UA) Negative (Negative) Urine Ketones Negative (Negative) Urine Blood Negative (Negative) Urine Nitrite Negative (Negative) Urine Bilirubin Negative (Negative) Urine Urobilinogen 3.0 (<2.0) mg/dL Ur Leukocyte Esterase Negative (Negative) Urine WBC 1 (0-5) /hpf Hyaline Casts 3 H (0-2) /lpf Urine Mucus Rare H (None) /hpf Urine Opiates Screen Not Detected (NotDetected) Ur Oxycodone Screen Not Detected (NotDetected) Urine Methadone Screen Not Detected (NotDetected) Ur Propoxyphene Screen Not Detected (NotDetected) Ur Barbiturates Screen Not Detected (NotDetected) U Tricyclic Antidepress Not Detected (NotDetected) Ur Phencyclidine Scrn Not Detected (NotDetected) Ur Amphetamines Screen Not Detected (NotDetected) U Methamphetamines Scrn Not Detected (NotDetected) U Benzodiazepines Scrn Not Detected (NotDetected) Urine Cocaine Screen Detected H (NotDetected) U Marijuana (THC) Screen Not Detected (NotDetected) Serum Alcohol mg/dL - Radiology Data Radiology results: report reviewed (Computed tomography scan of the brain reveal s no acute abnormality.), image reviewed (Chest x-ray shows COPD changes. Mild interstitial lung disease.) Critical Care Time Critical Care Time: Yes Total Critical Care Time: 33 Disposition Clinical Impression: Acute respiratory failure, Acute exacerbation of chronic obstructive pulmonary disease Disposition: ADMITTED IP TO THIS HOSP Is patient prescribed a controlled substance at d/c from ED?: No Referrals: Fabien Plata DO [Primary Care Provider] - 1-2 days Decision Time: 10:00
[2018-10-26 08:04] LABS: ABG PH 7.44 (7.35-7.45); ABG TCO2 62 mmol/L (19-24); Allen Test Performed? Yes
[2018-10-26 08:10] LABS: ABG PCO2 87 mmHg (35-45); ABG PO2 55 mmHg (83-108)
[2018-10-26 08:11] LABS: ABG Base Excess 35.3 mmol/L; ABG HCO3 59 mmol/L (21-25)
[2018-10-26 08:14] LABS: Basophils % (A) 0 %; Eosinophils % (A) 0 %; HCT 31.5 % (39.0-53.0); HGB 9.6 gm/dL (13.0-17.5); Hypochromasia Marked; Lymphocytes # (A) 0.5 k/uL (1.0-4.8); Lymphocytes % (A) 5 %; MCH 31.5 pg (25.0-35.0); MCHC 30.6 g/dL (31.0-37.0); MCV 102.9 fL (80.0-100.0); Macrocytosis Slight; Mean Platelet Volume 8.5; Monocytes # (A) 0.7 k/uL (0-1.0); Monocytes % (A) 7 %; Neutrophils # (A) 8.1 k/uL (1.3-7.7); Neutrophils % (A) 87 %; Platelet Count 154 k/uL (150-450); RBC 3.06 m/uL (4.30-5.90); RDW 13.8 % (11.5-15.5); WBC 9.3 k/uL (3.8-10.6)
[2018-10-26 08:22] LABS: INR 0.9 (<1.2); Partial Thromboplastin Time 23.3 sec (22.0-30.0); Prothrombin Time 10.1 sec (9.0-12.0)
[2018-10-26 08:24] LABS: ALT 32 U/L (21-72); AST 25 U/L (17-59); African American GFR (CKD) >90 (>60 ml/min/1.73 sqM); Albumin 3.8 g/dL (3.5-5.0); Alcohol <10 mg/dL; Alkaline Phosphatase 62 U/L (38-126); Blood Urea Nitrogen 22 mg/dL (9-20); Calcium 9.5 mg/dL (8.4-10.2); Chloride 82 mmol/L (98-107); Creatine Kinase 36 U/L (55-170); Glucose 117 mg/dL (74-99); Magnesium 1.7 mg/dL (1.6-2.3); Potassium 4.3 mmol/L (3.5-5.1); Sodium 139 mmol/L (137-145); Total Bilirubin 0.9 mg/dL (0.2-1.3)
[2018-10-26 08:30] LABS: Anion Gap 3 mmol/L
--- NOTE | 2018-10-26 08:45 | CT ---
EXAMINATION TYPE: CT brain wo con DATE OF EXAM: 10/26/2018 COMPARISON: None HISTORY: AMS CT DLP: 1188.4 mGycm Automated exposure control for dose reduction was used. FINDINGS: There is no acute intracranial hemorrhage, mass effect, or midline shift identified. The ventricles and sulci are within normal limits in size. A few opacified left ethmoid air cells. Otherwise, the gl obes are intact and the visualized sinuses are clear. IMPRESSION: No acute intracranial hemorrhage, mass effect, or midline shift is seen.
--- NOTE | 2018-10-26 09:06 | XR ---
EXAMINATION TYPE: XR chest 1V portable DATE OF EXAM: 10/26/2018 COMPARISON: Prior chest x-ray 09/21/[address] chest 09/17/2018 HISTORY: Altered mental status, shortness of breath TECHNIQUE: Single frontal view of the chest is obtained. FINDINGS: There are overlying cardiac leads. Hyperinflation is again noted consistent with emphysema . Some improvement in aeration noted at the lung bases. Heart size is stable. No evident pneumothorax or pleural effusion. Interstitium is increased. IMPRESSION: Emphysema, improvement in aeration. Mild interstitial lung disease.
[2018-10-26 09:22] LABS: Appearance,Urine Clear (Clear); Bilirubin,Urine Negative (Negative); Blood,Urine Negative (Negative); Color,Urine Yellow; Glucose,Urine (UA) Negative (Negative); Hyaline Casts,Urine 3 /lpf (0-2); Ketones,Urine Negative (Negative); Leukocyte Esterase,Urine Negative (Negative); Mucus,Urine Rare /hpf; Nitrite,Urine Negative (Negative); PH, Urine 8.5 (5.0-8.0); Protein,Urine 1+ (Negative); Specific Gravity,Urine 1.014 (1.001-1.035); WBC,Urine 1 /hpf (0-5)
[2018-10-26 09:30] LABS: Amphetamine Screen,Urine Not Detected (NotDetected); Barbiturate Screen,Urine Not Detected (NotDetected); Benzodiazepines Screen,Urine Not Detected (NotDetected); Cocaine Screen,Urine Detected (NotDetected); Methadone Screen, Urine Not Detected (NotDetected); Opiate Screen,Urine Not Detected (NotDetected); Oxycodone Screen, Urine Not Detected (NotDetected); Phencyclidine Screen,Urine Not Detected (NotDetected); Tricyclic Antidepressant,Urine Not Detected (NotDetected); Urn Cannabinoid Scrn Not Detected (NotDetected)
[2018-10-26] MEDS ORDERED: HEPARIN SODIUM,PORCINE 5,000 UNIT/ML 1 ML VIAL IV ONE (10:01)
[2018-10-26] MEDS ORDERED: ASPIRIN 81 MG PO STA (10:01)
[2018-10-26] MEDS ORDERED: NITROGLYCERIN SL TABS 0.4 MG TAB SUBLINGUAL PRN (10:01)
[2018-10-26] MEDS ORDERED: IPRATROPIUM-ALBUTEROL 3 ML NEB INHALATION PRN (10:01)
[2018-10-26] MEDS ORDERED: HEPARIN SODIUM,PORCINE 5,000 UNIT/ML 1 ML VIAL IV PRN (10:01)
--- NOTE | 2018-10-26 10:24 | CT ---
EXAMINATION TYPE: CT cervical spine wo con DATE OF EXAM: 10/26/2018 COMPARISON: CT of the chest dated 09/17/2018 HISTORY: Altered mental status. Fall. CT DLP: 204.3 mGycm Automated exposure control for dose reduction was used. TECHNIQUE: CT scan of the cervical spine is obtained without contrast, axial images are obtained, sa gittal and coronal reformatted images are also reviewed. FINDINGS: Cervical spine is visualized in its entirety from C1 through upper thoracic levels, demonst rates satisfactory alignment without evidence of acute fracture or dislocation. Prevertebral soft ti ssue appears within normal limits. The C1-C2 articulation is within normal limits on the coronal barrie ges. Redemonstration of emphysematous changes in nodular pleural and parenchymal scarring in the lef t lung apex which was demonstrated on CT of the chest dated 09/17/2018. Please refer to that report for recommendations. IMPRESSION: There is no acute fracture or dislocation evident in the cervical spine.
[2018-10-26] MEDS: HEPARIN SOD,PORK IN 0.45% NACL 25,000 UNIT in 0.45% NACL 1 250ML.BAG IV SCH (10:38)
[2018-10-26 11:28] VITALS: BMI 17.2
--- NOTE | 2018-10-26 11:31 | P.CRDCN ---
History of Present Illness Consult date: 10/26/18 Chief complaint: Change in mental status History of present illness: This is a 53-year-old gentleman with a past medical history significant for chronic obstructive pulmonary disease, chronic hypoxic respiratory failure on oxygen at 3 L at home, hypertension, and dyslipidemia, was brought by his family to the emergency department with a change in mental status as well as increasing in the shortness of breath. Currently the patient is on BiPAP. Beside that he is somewhat is a poor historian and the history was taken from his brother who w as admitted side. The patient was in his usual state of health until yesterday where he lives with his family but overall not very active. Yesterday the patient did fell twice. There is no indication of loss of consciousness. Early this morning, the family noticed that the patient oxygen saturation was dropping down and the patient himself was more short of breath. Because of that they brought him to the emergency department. In the ER, the patient was also found to be hypoxic and he was placed on BiPAP. The patient himself is a poor historian but he denies any symptoms of chest pain or chest discomfort, he stated that his breathing is slightly better now, no feeling of heart racing or fluttering and no syncope when he fell last night. He underwent a computed tomography scan of the brain which showed no acute abnormalities. He underwent a chest x-ray which showed findings consistent with COPD without any evidence of fluid overload and without any acute abnormalities. The EKG showed sinus tachycardia which could be related to the respiratory distress. The troponin was checked and that came in to be slightly abnormal. Beside that drug screen was performed and that came in to be positive for cocaine. The patient is not aware of any prior history of coronary artery disease or coronary revascularization. He just was discharged from the hospital in September 2018 when he was admitted with acute exacerbation of COPD. In 2016, the patient was also admitted with COPD exacerbation and abnormal cardiac enzymes. At that point he underwent an echocardiogram which revealed impaired LV function was EF around 40%. He stated that he never had any cardiac follow-up since then and currently he does not follow with any mural painter on regular basis. Overall, the patient seems to be malnourished and also seems to be dehydrated on examination. Past Medical History Past Medical History: COPD, Hyperlipidemia, Hypertension, Pneumonia Additional Past Medical History / Comment(s): Respiratory failure and has been vented, home O2 at 4L/NC, denies any hx of IL. History of Any Multi-Drug Resistant Organisms: None Reported Past Surgical History: Hernia Repair, Orthopedic Surgery Additional Past Surgical History / Comment(s): R knee arthroscopy, R inguinal hernia repair. Past Anesthesia/Blood Transfusion Reactions: No Reported Reaction Past Psychological History: No Psychological Hx Reported Additional Psychological History / Comment(s): Pt resides with family. He has home O2 he normally uses at [facility] at 4 L He has a nebulizer. He drives. Smoking Status: Current every day smoker Past Alcohol Use History: Daily Additional Past Alcohol Use History / Comment(s): Pt started smoking in 1976 and continues to smoke a half pack a day. He does drink alcohol every couple days . The patient lives at home with his mother and there is a puppy in the home. Patient is a walker but does not use it. He has a nebulizer, home O2 on portable oxygen. No CPAP. Past Drug Use History: Marijuana Additional Drug Use History / Comment(s): Pt used to smoke marijuana daily but now only on occasion. - Past Family History Mother Family Medical History: Coronary Artery Disease (CAD), Osteoarthritis (OA) Additional Family Medical History / Comment(s): Mother had CABG. She is 86 yrs old. Father Family Medical History: No Reported History Additional Family Medical History / Comment(s): Father is healthy and in his 80s. Medications and Allergies Home Medications Medication Instructions Recorded Confirmed Type Ipratropium-Albuterol Nebulize 3 ml INHALATION RT-QID #120 08/20/15 10/26/18 Rx [Duoneb 0.5 mg-3 mg/3 ml Soln] ampul.neb Atorvastatin Calcium [Lipitor] 10 mg PO HS 07/07/17 10/26/18 History Losartan [Cozaar] 50 mg PO DAILY 07/07/17 10/26/18 History Allergies Allergy/AdvReac Type Severity Reaction Status Date / Time No Known Allergies Allergy Verified 10/26/18 07:55 Physical Exam Vitals: Vital Signs Temp Pulse Resp BP Pulse Ox 10/26/18 10:45 98.4 F 97 18 105/68 98 10/26/18 09:12 101 H 20 120/70 100 10/26/18 08:21 100 24 93 L 10/26/18 07:50 98.1 F 110 H 24 134/70 90 L Intake and Output 10/25/18 10/26/18 10/26/18 22:59 06:59 14:59 Intake Total 3.78 Balance 3.78 Intake: Intake, IV Titration 3.78 Amount Heparin Sod,Pork in 0.45% 3.78 NaCl 25,000 unit In 0.45 % NaCl 1 250ml.bag @ 12 UNITS/KG/HR 6 mls/hr IV . Q24H [facility] Rx#:[id number] Other: Weight 50 kg - Constitutional General appearance: mild distress - Respiratory Respiratory: bilateral: diminished - Cardiovascular Rhythm: regular Heart sounds: normal: S1, S2 Results 10/26/18 08:05 10/26/18 08:05 Cardiac Enzymes 10/26/18 10/26/18 Range/Units 08:05 08:05 AST 25 (17-59) U/L Troponin I 0.040 H* (0.000-0.034) ng/mL Coagulation 10/26/18 Range/Units 08:05 PT 10.1 (9.0-12.0) sec APTT 23.3 (22.0-30.0) sec CBC 10/26/18 Range/Units 08:05 WBC 9.3 (3.8-10.6) k/uL RBC 3.06 L (4.30-5.90) m/uL Hgb 9.6 L (13.0-17.5) gm/dL Hct 31.5 L (39.0-53.0) % Plt Count 154 (150-450) k/uL Comprehensive Metabolic Panel 10/26/18 Range/Units 08:05 Sodium 139 (137-145) mmol/L Potassium 4.3 (3.5-5.1) mmol/L Chloride 82 L (98-107) mmol/L Carbon Dioxide 54 H* (22-30) mmol/L BUN 22 H (9-20) mg/dL Creatinine 0.32 L (0.66-1.25) mg/dL Glucose 117 H (74-99) mg/dL Calcium 9.5 (8.4-10.2) mg/dL AST 25 (17-59) U/L ALT 32 (21-72) U/L Alkaline Phosphatase 62 (38-126) U/L Total Protein 6.0 L (6.3-8.2) g/dL Albumin 3.8 (3.5-5.0) g/dL Current Medications Generic Name Dose Route Start Last Admin Trade Name Philip PRN Reason Stop Dose Admin Albuterol/Ipratropium 3 ml 10/26/18 12:00 Duoneb 0.5 Mg-3 Mg/3 Ml Soln INHALATION RT-QID WILFREDO Albuterol/Ipratropium 3 ml 10/26/18 10:01 Duoneb 0.5 Mg-3 Mg/3 Ml Soln INHALATION RT-Q4H PRN Shortness Of Breath Or Wheezing Aspirin 325 mg 10/27/18 09:00 Aspirin PO DAILY WILFREDO Heparin Sodium (Porcine) 0 unit 10/26/18 10:01 Heparin IV Q6HR PRN Low PTT Protocol Heparin Sodium/Sodium Chloride 250 mls @ 6 mls/hr 10/26/18 10:15 10/26/18 11:05 25,000 unit/ Sodium Chloride IV 12 units/kg/hr .Q24H WILFREDO 6 mls/hr Titration Protocol 12 UNITS/KG/HR Methylprednisolone Sodium Succinate 60 mg 10/26/18 12:00 Solu-Medrol IV Q6HR WILFREDO Metoprolol Tartrate 12.5 mg 10/26/18 21:00 Lopressor PO BID WILFREDO Nitroglycerin 0.4 mg 10/26/18 10:01 Nitrostat SUBLINGUAL Q5M PRN Chest Pain Intake and Output 10/25/18 10/26/18 10/26/18 22:59 06:59 14:59 Intake Total 3.78 Balance 3.78 Intake: Intake, IV Titration 3.78 Amount Heparin Sod,Pork in 0.45% 3.78 NaCl 25,000 unit In 0.45 % NaCl 1 250ml.bag @ 12 UNITS/KG/HR 6 mls/hr IV . Q24H [facility] Rx#:[id number] Other: Weight 50 kg Patient Weight 10/27/18 06:59 Weight 50 kg 10/26/18 08:05 10/26/18 08:05 Assessment and Plan Assessment: Assessment #1 acute hypoxic respiratory failure probably related to COPD exacerbation #2 known chronic hypoxic respiratory failure on oxygen at home #3 abnormal troponin. #4 drug abuse. The patient's urine screen is positive for cocaine #5 hypertension #6 dyslipidemia #8 malnourishment/dehydration Plan #1 the blood pressure has been marginally low. I will give the patient 100 mL of 0.9 normal saline. #2 follow-up with serial cardiac enzymes. We'll obtain 2 more sets of troponin #3 agree to keep the patient on aspirin at this point #4 monitor the heart rate. If he continues to be tachycardic we'll consider starting him on metoprolol heart rate, if the pressure improved #5 repeat the echocardiogram. The last echo from 2015 revealed an EF of 35-40% #6 severe underlying coronary artery disease is a possibility. Thank you for allowing us participate in his care. We'll continue following up with the patient
[2018-10-26] MEDS: methylPREDNISolone SOD SUCCI 125 MG/2 ML VIAL IV SCH ×3 (12:43→23:10)
[2018-10-26] MEDS: IPRATROPIUM-ALBUTEROL 3 ML NEB INHALATION SCH ×3 (13:50→19:30)
--- NOTE | 2018-10-26 14:00 | P.HPIM ---
History of Present Illness H&P Date: 10/26/18 Chief Complaint: Low pulse ox This is a 53-year-old male patient of Dr. Plata and Dr. Magallon with past medical history of COPD, chronic hypoxic respiratory failure on 3 L of oxygen at home, hyperlipidemia, hypertension, tobacco use and dependence. Patient continues to smoke half a pack per day. Patient had a recent hospitalization September 16 through September 23 at which time he was treated for acute on chronic hypoxic hypercapnic respiratory failure secondary to COPD exacerbation and left lower lobe pneumonia along with acute hypoxic encephalopathy secondary to CO2 narcosis. Patient was followed during this admission by his pulmonary medicine doctor, Dr. Magallon. Patient was discharged to home. Patient presented to [facility] emergency [facility] for evaluation by EMS with low pulse ox with mental status changes. Apparently patient had a fall last night with no signs of head injury. Upon arrival to the ER, patient was unresponsive and unable to provide any history. He apparently was without his oxygen throughout the night. He was found to be afebrile, heart rate 110, respiratory rate 24, blood pressure 134/70. EKG was a sinus tachycardia with no acute ST changes. Hemoglobin 9.6, CO2 54, chloride 82. ABGs revealed a pH of 7.44, pCO2 87, pO2 55, bicarb 59, total CO2 62, O2 saturation 92% Leo excess 35.3 on FiO2 of 36. CK was 36, alcohol level less than 10. Troponin 0.040. Urine drug screen positive for cocaine. Urinalysis negative for urinary tract infection. CAT scan of the brain revealed no acute abnormality. Chest x-ray showed COPD with mild interstitial lung disease. Patient was started on a heparin drip, Solu-Medrol DuoNeb treatments and admitted to the cardiac stepdown unit where consult placed for cardiology regarding 1 elevated troponin and consult with Dr. Sherita nieto pulmonary medicine doctor. Patient was also placed on BiPAP. Review of Systems ROS unobtainable: due to mental status Past Medical History Past Medical History: COPD, Hyperlipidemia, Hypertension, Pneumonia Additional Past Medical History / Comment(s): Respiratory failure and has been vented, home O2 at 4L/NC, denies any hx of MA. PATIENT WAS ADMITTED 09/16/18 FOR RESPIRATORY DISTRESS History of Any Multi-Drug Resistant Organisms: None Reported Past Surgical History: Hernia Repair, Orthopedic Surgery Additional Past Surgical History / Comment(s): R knee arthroscopy, R inguinal hernia repair. Past Anesthesia/Blood Transfusion Reactions: No Reported Reaction Past Psychological History: No Psychological Hx Reported Additional Psychological History / Comment(s): Pt resides with family. He has home O2 he normally uses at nite at 4 L He has a nebulizer. Smoking Status: Smoker, current status unknown Past Alcohol Use History: Daily Additional Past Alcohol Use History / Comment(s): Pt started smoking in 1976 and continues to smoke a half pack a day. He does drink alcohol every couple days . The patient lives at home with his mother and there is a puppy in the home. Patient is a walker but does not use it. He has a nebulizer, home O2 on portable oxygen. No CPAP. Past Drug Use History: Marijuana Additional Drug Use History / Comment(s): Pt used to smoke marijuana daily but now only on occasion. COCAINE DETECTED IN URINE SCREEN DONE 10/26/18 - Past Family History Mother Family Medical History: Coronary Artery Disease (CAD), Osteoarthritis (OA) Additional Family Medical History / Comment(s): Mother had CABG. She is 86 yrs old. Father Family Medical History: Dementia, Memory Impairment Additional Family Medical History / Comment(s): FATHER IS Medications and Allergies Home Medications Medication Instructions Recorded Confirmed Type Ipratropium-Albuterol Nebulize 3 ml INHALATION RT-QID #120 08/20/15 10/26/18 Rx [Duoneb 0.5 mg-3 mg/3 ml Soln] ampul.neb Atorvastatin Calcium [Lipitor] 10 mg PO HS 07/07/17 10/26/18 History Losartan [Cozaar] 50 mg PO DAILY 07/07/17 10/26/18 History Allergies Allergy/AdvReac Type Severity Reaction Status Date / Time No Known Allergies Allergy Verified 10/26/18 07:55 Physical Exam Vitals: Vital Signs Temp Pulse Pulse Resp BP BP Pulse Ox 10/26/18 11:30 97.3 F L 90 16 91/59 100 10/26/18 10:45 98.4 F 97 18 105/68 98 10/26/18 09:12 101 H 20 120/70 100 10/26/18 08:21 100 24 93 L 10/26/18 07:50 98.1 F 110 H 24 134/70 90 L Intake and Output 10/25/18 10/26/18 10/26/18 22:59 06:59 14:59 Intake Total 3.78 Balance 3.78 Intake: Intake, IV Titration 3.78 Amount Heparin Sod,Pork in 0.45% 3.78 NaCl 25,000 unit In 0.45 % NaCl 1 250ml.bag @ 12 UNITS/KG/HR 6 mls/hr IV . Q24H [facility] Rx#:[id number] Other: Weight 50 kg Gen: This is a thin cachectic appearing 53-year-old male. Patient is resting on the ER stretcher. Patient's brother is at bedside and history has been obtained from him. Patient is unable to provide any information. HEENT: Head is atraumatic, normocephalic. Pupils equal, round. Sclerae is anicteric. NECK: Supple. No JVD. No lymphadenopathy. No thyromegaly. LUNGS: Diminished bilaterally. Poor inspiratory effort. Mild intercostal retractions. HEART: Regular rate and rhythm. No murmur. ABDOMEN: Soft. Bowel sounds are present. No masses. No tenderness. EXTREMITIES: No pedal edema. No calf tenderness. NEUROLOGICAL: Patient is awake, not alert and not oriented. Generalized weakness. Results CBC & Chem 7: 10/26/18 08:05 10/26/18 08:05 Labs: Abnormal Lab Results - Last 24 Hours (Table) 10/26/18 10/26/18 10/26/18 Range/Units 07:55 08:05 08:05 RBC 3.06 L (4.30-5.90) m/uL Hgb 9.6 L (13.0-17.5) gm/dL Hct 31.5 L (39.0-53.0) % MCV 102.9 H (80.0-100.0) fL MCHC 30.6 L (31.0-37.0) g/dL Neutrophils # 8.1 H (1.3-7.7) k/uL Lymphocytes # 0.5 L (1.0-4.8) k/uL ABG pCO2 87 H* (35-45) mmHg ABG pO2 55 L* (83-108) mmHg ABG HCO3 59 H* (21-25) mmol/L ABG Total CO2 62 H (19-24) mmol/L ABG O2 Saturation 92.0 L (94-97) % Chloride 82 L (98-107) mmol/L Carbon Dioxide 54 H* (22-30) mmol/L BUN 22 H (9-20) mg/dL Creatinine 0.32 L (0.66-1.25) mg/dL Glucose 117 H (74-99) mg/dL Creatine Kinase 36 L (55-170) U/L Troponin I (0.000-0.034) ng/mL Total Protein 6.0 L (6.3-8.2) g/dL Urine pH (5.0-8.0) Urine Protein (Negative) Hyaline Casts (0-2) /lpf Urine Mucus (None) /hpf Urine Cocaine Screen (NotDetected) 10/26/18 10/26/18 Range/Units 08:05 09:05 RBC (4.30-5.90) m/uL Hgb (13.0-17.5) gm/dL Hct (39.0-53.0) % MCV (80.0-100.0) fL MCHC (31.0-37.0) g/dL Neutrophils # (1.3-7.7) k/uL Lymphocytes # (1.0-4.8) k/uL ABG pCO2 (35-45) mmHg ABG pO2 (83-108) mmHg ABG HCO3 (21-25) mmol/L ABG Total CO2 (19-24) mmol/L ABG O2 Saturation (94-97) % Chloride (98-107) mmol/L Carbon Dioxide (22-30) mmol/L BUN (9-20) mg/dL Creatinine (0.66-1.25) mg/dL Glucose (74-99) mg/dL Creatine Kinase (55-170) U/L Troponin I 0.040 H* (0.000-0.034) ng/mL Total Protein (6.3-8.2) g/dL Urine pH 8.5 H (5.0-8.0) Urine Protein 1+ H (Negative) Hyaline Casts 3 H (0-2) /lpf Urine Mucus Rare H (None) /hpf Urine Cocaine Screen Detected H (NotDetected) Thrombosis Risk Factor Assmnt - DVT/VTE Prophylaxis DVT/VTE Prophylaxis: Pharmacologic Prophylaxis ordered - Choose All That Apply Each Factor Represents 1 point: Age 41-60 years, Medical pt on bed rest Each Risk Factor Represents 2 Points: Patient confined to bed Other congenital or acquired thrombophilia - If yes, enter type in comment: No Thrombosis Risk Factor Assessment Total Risk Factor Score: 4 Thrombosis Risk Factor Assessment Level: Moderate Risk Assessment and Plan Plan: 1. Acute on chronic hypoxic hypercapnic respiratory failure secondary to COPD exacerbation and noncompliance with oxygen therapy. Continue IV Solu-Medrol 60 mg every 6 hours, DuoNeb treatments every 6 hours and as needed, continue Pulmicort twice daily. Consult with Dr. Magallon. 2. Acute hypoxic and hypercapnic encephalopathy secondary to CO2 narcosis. Con tinue BiPAP or high flow nasal cannula. 3. Drug abuse with urine drug screen positive for cocaine. Continue cardiac monitoring. 4. Hypertension. Patient is normally on losartan 50 mg daily which will be held due to hypotension. 5. Hypochloremia. Continue IV fluids. 6. Elevated troponin. Cardiology consult appreciated. A repeat echocardiogram. Repeat troponins. Patient is on a heparin drip, aspirin 325 mg daily, Lipitor. 7. Anemia of chronic disease and malnourishment. 8. Hyperlipidemia. Continue Lipitor 10 mg at bedtime. 9. Severe protein calorie malnutrition. Patient will require protein supplement once he is able to eat. 10. Tobacco use and dependence. 11. GI prophylaxis. Pepcid 20 mg twice daily. 12. DVT prophylaxis. Lovenox 40 mg subcu daily. Patient will be admitted to the hospital for a minimum of 2 night stay. Prognosis guarded. Discharge plan: May require subacute rehab. Impression and plan of care have been directed as dictated by the signing physician. An[employer]aria Gaming nurse practitioner acting as scribe for signing physician.
[2018-10-26 14:31] LABS: Carbon Dioxide 54 mmol/L (22-30)
--- NOTE | 2018-10-26 15:44 | ECHOF ---
Referral Reason:nstemi MEASUREMENTS -------- HEIGHT: 170.2 cm WEIGHT: 49.9 kg BP: 105/68 IVSd: 1.0 cm (0.6 - 1.1) LVIDd: 4.2 cm (3.9 - 5.3) LVPWd: 1.0 cm (0.6 - 1.1) IVSs: 1.1 cm LVIDs: 3.2 cm LVPWs: 1.4 cm RVIDd: 4.3 cm (< 3.3) LAESV Index (A-L): 15.49 ml/m Ao Diam: 2.6 cm (2.0 - 3.7) LA Diam: 3.1 cm (2.7 - 3.8) AV Cusp: 1.8 cm (1.5 - 2.6) EPSS: 0.4 cm MV E Tima: 0.60 m/s MV DecT: 135 ms MV A Tima: 0.84 m/s MV E/A Ratio: 0.72 RAP: 5.00 mmHg RVSP: 34.37 mmHg MV EF SLOPE: 132.12 mm/s (70 - 150) MV EXCURSION: 2.25 cm (> 18.000) FINDINGS -------- Sinus rhythm. This was a technically adequate study. The left ventricular size is normal. Left ventricular wall thickness is normal. Overall left vent ricular systolic function is normal with, an EF between 55 - 60 %. The diastolic filling pattern is normal for the age of the patient. The right ventricle is severely enlarged. Left atrium is normal size by volume. The right atrial size is normal. Interatrial and interventricular septum intact. Lipomatous hypertrophy of atrial septum. The aortic valve is trileaflet and appears structurally normal. There is mild aortic valve sclerosi s without stenosis. There is no evidence of aortic regurgitation. There is no evidence of aortic stenosis. Mild mitral annular calcification present. There is trace mitral regurgitation. Mild tricuspid regurgitation present. There is mild pulmonary hypertension. The right ventricular systolic pressure, as measured by Doppler, is 34.37mmHg. There is no pulmonic regurgitation present. The aortic root size is normal. The inferior vena cava is mildly dilated. The pericardium appears to be thickened. CONCLUSIONS -------- 1. Sinus rhythm. 2. This was a technically adequate study. 3. The left ventricular size is normal. 4. Left ventricular wall thickness is normal. 5. Overall left ventricular systolic function is normal with, an EF between 55 - 60 %. 6. The diastolic filling pattern is normal for the age of the patient. 7. The right ventricle is severely enlarged. 8. Left atrium is normal size by volume. 9. The right atrial size is normal. 10. Interatrial and interventricular septum intact. 11. Lipomatous hypertrophy of atrial septum. 12. The aortic valve is trileaflet and appears structurally normal. 13. There is mild aortic valve sclerosis without stenosis. 14. There is no evidence of aortic regurgitation. 15. There is no evidence of aortic stenosis. 16. Mild mitral annular calcification present. 17. There is trace mitral regurgitation. 18. Mild tricuspid regurgitation present. 19. There is mild pulmonary hypertension. 20. The right ventricular systolic pressure, as measured by Doppler, is 34.37mmHg. 21. There is no pulmonic regurgitation present. 22. The aortic root size is normal. 23. The inferior vena cava is mildly dilated. 24. The pericardium appears to be thickened. COATER HAND: Julianne Ennis RDCS
--- NOTE | 2018-10-26 18:24 | P.CNPUL ---
History of Present Illness Consult date: 10/26/18 Reason for consult: other Chief complaint: Altered mental status hypoxic respiratory failure History of present illness: This is a 53-year-old male well-known to me with history of end-stage lung disease likely secondary due to severe COPD patient has chronic hypoxic respiratory failure on 3 L oxygen smell still smoking actively patient was hospitalized recently with left lower lobe pneumonia was discharged in stable condition did not come back for follow-up. Presented into the [facility] into the ER again brought in by EMS with altered mental status related to hypoxia and hypercapnia and also substance use as urine drug was positive for cocaine patient is bedbound has been treated with BiPAP machine 02/17 with 50% oxygen he is arousable but does not give any detailed history a sitter is present at bedside Review of Systems ROS unobtainable: due to mental status All systems: negative Past Medical History Past Medical History: COPD, Hyperlipidemia, Hypertension, Pneumonia Additional Past Medical History / Comment(s): Respiratory failure and has been vented, home O2 at 4L/NC, denies any hx of NM. PATIENT WAS ADMITTED 09/16/18 FOR RESPIRATORY DISTRESS History of Any Multi-Drug Resistant Organisms: None Reported Past Surgical History: Hernia Repair, Orthopedic Surgery Additional Past Surgical History / Comment(s): R knee arthroscopy, R inguinal hernia repair. Past Anesthesia/Blood Transfusion Reactions: No Reported Reaction Past Psychological History: No Psychological Hx Reported Additional Psychological History / Comment(s): Pt resides with family. He has home O2 he normally uses at nite at 4 L He has a nebulizer. Smoking Status: Smoker, current status unknown Past Alcohol Use History: Daily Additional Past Alcohol Use History / Comment(s): Pt started smoking in 1976 and continues to smoke a half pack a day. He does drink alcohol every couple days . The patient lives at home with his mother and there is a puppy in the home. Patient is a walker but does not use it. He has a nebulizer, home O2 on portable oxygen. No CPAP. Past Drug Use History: Marijuana Additional Drug Use History / Comment(s): Pt used to smoke marijuana daily but now only on occasion. COCAINE DETECTED IN URINE SCREEN DONE 10/26/18 - Past Family History Mother Family Medical History: Coronary Artery Disease (CAD), Osteoarthritis (OA) Additional Family Medical History / Comment(s): Mother had CABG. She is 86 yrs old. Father Family Medical History: Dementia, Memory Impairment Additional Family Medical History / Comment(s): FATHER IS Medications and Allergies Home Medications Medication Instructions Recorded Confirmed Type Ipratropium-Albuterol Nebulize 3 ml INHALATION RT-QID #120 08/20/15 10/26/18 Rx [Duoneb 0.5 mg-3 mg/3 ml Soln] ampul.neb Atorvastatin Calcium [Lipitor] 10 mg PO HS 07/07/17 10/26/18 History Losartan [Cozaar] 50 mg PO DAILY 07/07/17 10/26/18 History Allergies Allergy/AdvReac Type Severity Reaction Status Date / Time No Known Allergies Allergy Verified 10/26/18 07:55 Physical Exam Vitals: Vital Signs Temp Pulse Pulse Resp BP BP Pulse Ox 10/26/18 16:27 90 16 10/26/18 16:17 89 16 99 10/26/18 16:00 98.2 F 86 16 110/58 97 10/26/18 13:30 98.2 F 87 16 84/54 100 10/26/18 11:30 97.3 F L 90 16 91/59 100 10/26/18 10:45 98.4 F 97 18 105/68 98 10/26/18 09:12 101 H 20 120/70 100 10/26/18 08:21 100 24 93 L 10/26/18 07:50 98.1 F 110 H 24 134/70 90 L Intake and Output 10/26/18 10/26/18 10/26/18 06:59 14:59 22:59 Intake Total 103.78 273.5 Output Total 150 Balance 103.78 123.5 Intake: Intake, IV Titration 3.78 33.5 Amount Heparin Sod,Pork in 0.45% 3.78 33.5 NaCl 25,000 unit In 0.45 % NaCl 1 250ml.bag @ 12 UNITS/KG/HR 6 mls/hr IV . Q24H [facility] Rx#:[id number] Oral 100 240 Output: Urine 150 Other: Voiding Method Urinal Weight 50 kg - Constitutional General appearance: cooperative, disheveled, mild distress - EENT Eyes: EOMI, PERRLA ENT: normal oropharynx Ears: bilateral: normal - Neck Carotids: bilateral: upstroke normal, bruit absent Thyroid: negative: normal size - Respiratory Respiratory: bilateral: diminished, wheezing (Fine expiratory), prolonged expiration, negative: dullness, rales, rhonchi - Cardiovascular Rhythm: regular Heart sounds: normal: S1, S2 - Gastrointestinal General gastrointestinal: decreased bowel sounds, soft - Integumentary Integumentary: normal turgor - Neurologic Neurologic: CNII-XII intact - Musculoskeletal Musculoskeletal: gait normal, generalized weakness, strength equal bilaterally - Psychiatric Psychiatric: A&O x's 3, appropriate affect, intact judgment & insight Results - Laboratory Findings CBC and BMP: 10/26/18 08:05 10/26/18 08:05 ABG ABG pH 7.44 (7.35-7.45) 10/26/18 07:55 ABG pCO2 87 mmHg (35-45) H* 10/26/18 07:55 ABG pO2 55 mmHg (83-108) L* 10/26/18 07:55 ABG O2 Saturation 92.0 % (94-97) L 10/26/18 07:55 PT/INR, D-dimer PT 10.1 sec (9.0-12.0) 10/26/18 08:05 INR 0.9 (<1.2) 10/26/18 08:05 Abnormal lab findings: Abnormal Labs 10/26/18 10/26/18 10/26/18 07:55 08:05 08:05 RBC 3.06 L Hgb 9.6 L Hct 31.5 L MCV 102.9 H MCHC 30.6 L Neutrophils # 8.1 H Lymphocytes # 0.5 L APTT ABG pCO2 87 H* ABG pO2 55 L* ABG HCO3 59 H* ABG Total CO2 62 H ABG O2 Saturation 92.0 L Chloride 82 L Carbon Dioxide 54 H* BUN 22 H Creatinine 0.32 L Glucose 117 H Creatine Kinase 36 L Troponin I Total Protein 6.0 L Urine pH Urine Protein Hyaline Casts Urine Mucus Urine Cocaine Screen 10/26/18 10/26/18 10/26/18 08:05 09:05 13:40 RBC Hgb Hct MCV MCHC Neutrophils # Lymphocytes # APTT ABG pCO2 ABG pO2 ABG HCO3 ABG Total CO2 ABG O2 Saturation Chloride Carbon Dioxide BUN Creatinine Glucose Creatine Kinase Troponin I 0.040 H* 0.081 H* Total Protein Urine pH 8.5 H Urine Protein 1+ H Hyaline Casts 3 H Urine Mucus Rare H Urine Cocaine Screen Detected H 10/26/18 15:27 RBC Hgb Hct MCV MCHC Neutrophils # Lymphocytes # APTT 37.4 H ABG pCO2 ABG pO2 ABG HCO3 ABG Total CO2 ABG O2 Saturation Chloride Carbon Dioxide BUN Creatinine Glucose Creatine Kinase Troponin I Total Protein Urine pH Urine Protein Hyaline Casts Urine Mucus Urine Cocaine Screen - Diagnostic Findings Chest x-ray: report reviewed, image reviewed (Resolving pneumonia, COPD-like changes) Assessment and Plan Assessment: Altered mental status due to baseline hypercapnic hypoxic respiratory failure with substance use related to cocaine Acute on chronic hypoxic and hypercapnic respiratory failure Cocaine abuse Non ST segment elevated NM due to cocaine use Hypertension hypertensive cardiovascular disease chronic anemia Protein calorie malnourishment Smoking and nicotine use Plan: Gentle rehydration Bronchodilator IV steroids Bedside sitter Continue monitor clinical course closely agree with heparin due to elevated troponin Further recommendations pending plan of care as per clinical response of the patient Based on the x-ray patient appears to be recovering from left lower lobe pneumo dat no need for antibiotics at this time Time with Patient: Greater than 30
[2018-10-26] MEDS: BUDESONIDE 0.5 MG/2 ML NEBU INHALATION SCH (19:30)
[2018-10-26] MEDS: ATORVASTATIN 10 MG TAB PO SCH (19:55)
[2018-10-26] MEDS ORDERED: METOPROLOL TARTRATE 12.5 MG TAB PO SCH (21:00)
[2018-10-27] MEDS: methylPREDNISolone SOD SUCCI 125 MG/2 ML VIAL IV SCH ×4 (05:39→23:13)
[2018-10-27 06:00] LABS: Mean Platelet Volume 7.7; Platelet Count 149 k/uL (150-450)
[2018-10-27 06:08] LABS: Cholesterol 132 mg/dL (<200); HDL Cholesterol 62 mg/dL (40-60); LDL Cholesterol,Calculated 55 mg/dL (0-99); Triglycerides 75 mg/dL (<150)
[2018-10-27] MEDS: BUDESONIDE 0.5 MG/2 ML NEBU INHALATION SCH ×2 (08:09→19:19)
[2018-10-27] MEDS: IPRATROPIUM-ALBUTEROL 3 ML NEB INHALATION SCH ×4 (08:10→19:19)
[2018-10-27] MEDS ORDERED: LOSARTAN 50 MG TAB PO SCH (09:00)
[2018-10-27] MEDS: HEPARIN SOD,PORK IN 0.45% NACL 25,000 UNIT in 0.45% NACL 1 250ML.BAG IV SCH (12:39)
[2018-10-27] MEDS: ASPIRIN 325 MG TAB PO SCH (12:39)
--- NOTE | 2018-10-27 13:15 | P.PN ---
Subjective Progress Note Date: 10/27/18 This is a 53-year-old male patient of Dr. Plata and Dr. Magallon with past medical history of COPD, chronic hypoxic respiratory failure on 3 L of oxygen at home, hyperlipidemia, hypertension, tobacco use and dependence. Patient continues to smoke half a pack per day. Patient had a recent hospit alization September 16 through September 23 at which time he was treated for acute on chronic hypoxic hypercapnic respiratory failure secondary to COPD exacerbation and left lower lobe pneumonia along with acute hypoxic encephalopathy secondary to CO2 narcosis. Patient was followed during this admission by his pulmonary medicine doctor, Dr. Magallon. Patient was discharged to home. Patient presented to [facility] emergency center for evaluation by EMS with low pulse ox with mental status changes. Apparently patient had a fall last night with no signs of head injury. Upon arrival to the ER, patient was unresponsive and unable to provide any history. He apparently was without his oxygen throughout the night. He was found to be afebrile, heart rate 110, respiratory rate 24, blood pressure 134/70. EKG was a sinus tachycardia with no acute ST changes. Hemoglobin 9.6, CO2 54, chloride 82. ABGs revealed a pH of 7.44, pCO2 87, pO2 55, bicarb 59, total CO2 62, O2 saturation 92% Leo excess 35.3 on FiO2 of 36. CK was 36, alcohol level less than 10. Troponin 0.040. Urine drug screen positive for cocaine. Urinalysis negative for urinary tract infection. CAT scan of the brain revealed no acute abnormality. Chest x-ray showed COPD with mild interstitial lung disease. Patient was started on a heparin drip, Solu-Medrol DuoNeb treatments and admitted to the cardiac stepdown unit where consult placed for cardiology regarding 1 elevated troponin and consult with Dr. Magallon has pulmonary medicine doctor. Patient was also placed on BiPAP. 10/27: Patient is seen on the cardiac stepdown unit. He is now on BiPAP. He states he is feeling much better from yesterday. Patient has been seen by cardiology and Dr. Magallon from pulmonary medicine. He remains on Solu-Medrol at 60 mg IV every 6 hours and NovoLog scale will be added. Patient is on heparin drip and repeat troponins are 0.081 and 0.049. Platelet count is at 149. Triglycerides 75, cholesterol 132, LDL 55 and HDL 62. The patient has been afebrile, heart rate in the 80s, blood pressure 112/62 and pulse ox 95% on BiPAP at 50% FiO2. Echocardiogram reveals EF of 55-60%, trace mitral regurgitation, mild tricuspid regurgitation, mild pulmonary hypertension. Objective - Vital Signs Vital signs: Vital Signs Temp 97.9 F 10/27/18 03:08 Pulse 84 10/27/18 08:34 Resp 18 10/27/18 03:08 BP 112/62 10/27/18 03:08 Pulse Ox 95 10/27/18 03:08 Intake & Output 10/26/18 10/27/18 10/27/18 18:59 06:59 18:59 Intake Total 377.28 48.125 Output Total 150 200 Balance 227.28 -151.875 Weight 50 kg Intake: Intake, IV Titration 37.28 48.125 Amount Heparin Sod,Pork in 0.45% 37.28 48.125 NaCl 25,000 unit In 0.45 % NaCl 1 250ml.bag @ 12 UNITS/KG/HR 6 mls/hr IV . Q24H [facility] Rx#:[id number] Oral 340 Output: Urine 150 200 Other: Voiding Method Urinal # Voids 1 - Exam Review Of Systems: Constitutional: No fever, no chills, no night sweats. No weight change. Reports weakness, fatigue or lethargy. No daytime sleepiness. EENT: No headache. No blurred vision or double vision, no loss of vision. No loss of Hearing, no ringing in the ears, no dizziness. No nasal drainage or congestion. No epistaxis. No sore throat. Lungs: Reports shortness of breath, reports cough, no sputum production. Reports wheezing. Cardiovascular: No chest pain, no lower extremity edema. No palpitations. No paroxysmal nocturnal dyspnea. No orthopnea. No lightheadedness or dizziness. No syncopal episodes. Abdominal: No abdominal pain. No nausea, vomiting. No diarrhea. No constipation. No bloody or tarry stools.. No loss of appetite. Genitourinary: No dysuria, increased frequency, urgency. No urinary retention. Musculoskeletal: No myalgias. Reports muscle weakness, no gait dysfunction, no frequent falls. No back pain. No neck pain. Integumentary: No wounds, no lesions. No rash or pruritus. No unusual bruising. No change in hair or nails. Neurologic: No aphasia. No facial droop. No change in mentation. No head injury. No headache. No paralysis. No paresthesia. Psychiatric: No depression. No anxiety. No mood swings. Endocrine: Reports abnormal blood sugars. No excessive sweating or thirst. No cold intolerance. Gen: This is a thin cachectic appearing 53-year-old male. Patient is resting in bed with BiPAP in place and appears much more comfortable from yesterday. Patient is awake and alert today. He is able to answer questions and follow commands. HEENT: Head is atraumatic, normocephalic. Pupils equal, round. Sclerae is anicteric. NECK: Supple. No JVD. No lymphadenopathy. No thyromegaly. LUNGS: Diminished bilaterally. Poor inspiratory effort. Mild intercostal retractions. HEART: Regular rate and rhythm. No murmur. ABDOMEN: Soft. Bowel sounds are present. No masses. No tenderness. EXTREMITIES: No pedal edema. No calf tenderness. NEUROLOGICAL: Patient is awake, alert and oriented x3. Generalized weakness noted. - Labs CBC & Chem 7: 10/27/18 05:22 10/26/18 08:05 Labs: Abnormal Lab Results - Last 24 Hours (Table) 10/26/18 10/26/18 10/26/18 Range/Units 08:05 09:05 13:40 Plt Count (150-450) k/uL APTT (22.0-30.0) sec Carbon Dioxide 54 H* (22-30) mmol/L Troponin I 0.081 H* (0.000-0.034) ng/mL HDL Cholesterol (40-60) mg/dL Urine pH 8.5 H (5.0-8.0) Urine Protein 1+ H (Negative) Hyaline Casts 3 H (0-2) /lpf Urine Mucus Rare H (None) /hpf Urine Cocaine Screen Detected H (NotDetected) 10/26/18 10/26/18 10/26/18 Range/Units 15:27 19:59 22:32 Plt Count (150-450) k/uL APTT 37.4 H 39.7 H (22.0-30.0) sec Carbon Dioxide (22-30) mmol/L Troponin I 0.049 H* (0.000-0.034) ng/mL HDL Cholesterol (40-60) mg/dL Urine pH (5.0-8.0) Urine Protein (Negative) Hyaline Casts (0-2) /lpf Urine Mucus (None) /hpf Urine Cocaine Screen (NotDetected) 10/27/18 10/27/18 10/27/18 Range/Units 05:22 05:22 05:22 Plt Count 149 L (150-450) k/uL APTT 50.8 H (22.0-30.0) sec Carbon Dioxide (22-30) mmol/L Troponin I (0.000-0.034) ng/mL HDL Cholesterol 62 H (40-60) mg/dL Urine pH (5.0-8.0) Urine Protein (Negative) Hyaline Casts (0-2) /lpf Urine Mucus (None) /hpf Urine Cocaine Screen (NotDetected) Assessment and Plan Plan: 1. Acute on chronic hypoxic hypercapnic respiratory failure secondary to COPD exacerbation and noncompliance with oxygen therapy. Continue IV Solu-Medrol 60 mg every 6 hours, DuoNeb treatments every 6 hours and as needed, continue Pulmicort twice daily. Consult with Dr. Magallon appreciated. 2. Acute hypoxic and hypercapnic encephalopathy secondary to CO2 narcosis. Continue BiPAP or high flow nasal cannula. 3. Drug abuse with urine drug screen positive for cocaine. Continue cardiac monitoring. 4. Hypertension. Patient is normally on losartan 50 mg daily which will be held due to hypotension. 5. Hypochloremia. Continue IV fluids. 6. Elevated troponin most likely secondary to cocaine use. Cardiology consult appreciated. Echocardiogram report as above. Patient is on a heparin drip, aspirin 325 mg daily, Lipitor. 7. Anemia of chronic disease and malnourishment. 8. Hyperlipidemia. Continue Lipitor 10 mg at bedtime. 9. Severe protein calorie malnutrition. Patient will require protein supplement once he is able to eat. 10. Tobacco use and dependence. 11. GI prophylaxis. Pepcid 20 mg twice daily. 12. DVT prophylaxis. Lovenox 40 mg subcu daily. Discharge plan: May require subacute rehab. PT and OT consults added. Impression and plan of care have been directed as dictated by the signing physician. [employer] nurse practitioner acting as scribe for signing physician.
--- NOTE | 2018-10-27 15:06 | P.PN ---
Subjective Progress Note Date: 10/27/18 Principal diagnosis: Acute coronary event This is a 53-year-old gentleman with a past medical history significant for chronic obstructive pulmonary disease, chronic hypoxic respiratory failure on oxygen at 3 L at home, hypertension, and dyslipidemia, was brought by his family to the emergency department with a change in mental status as well as increasing in the shortness of breath. Currently the patient is on BiPAP. Beside that he is somewhat is a poor historian and the history was taken from his brother who was admitted side. The patient was in his usual state of health until yesterday where he lives with his family but overall not very active. Yesterday the patient did fell twice. There is no indication of loss of consciousness. Early this morning, the family noticed that the patient oxygen saturation was dropping down and the patient himself was more short of breath. Because of that they brought him to the emergency department. In the ER, the patient was also found to be hypoxic and he was placed on BiPAP. The patient himself is a poor historian but he denies any symptoms of chest pain or chest discomfort, he stated that his breathing is slightly better now, no feeling of heart racing or fluttering and no syncope when he fell last night. He underwent a computed tomography scan of the brain which showed no acute abnormalities. He underwent a chest x-ray which showed findings consistent with COPD without any evidence of fluid overload and without any acute abnormalities. The EKG showed sinus tachycardia which could be related to the respiratory distress. The troponin was checked and that came in to be slightly abnormal. Beside that drug screen was performed and that came in to be positive for cocaine. The patient is not aware of any prior history of coronary artery disease or coronary revascularization. He just was discharged from the hospital in September 2018 when he was admitted with acute exacerbation of COPD. In 2016, the patient was also admitted with COPD exacerbation and abnormal cardiac enzymes. At that point he underwent an echocardiogram which revealed impaired LV function was EF around 40%. He stated that he never had any cardiac follow-up since then and currently he does not follow with any fibrous wallboard inspector on regular basis. Overall, the patient seems to be malnourished and also seems to be dehydrated on examination. On follow-up with the patient today, October [id number], he seems to be doing slightly better indeterminable shortness of breath. No symptoms of chest pain or chest discomfort. The echocardiogram revealed normal LV function without any evidence of wall motion abnormalities concerning for severe underlying coronary artery disease. He continues to be on aspirin as well as statin. He continues to be on heparin IV which I will continue for the next 24 hours. Objective - Vital Signs Vital signs: Vital Signs Temp 98.2 F 10/27/18 08:05 Pulse 74 10/27/18 12:30 Resp 16 10/27/18 12:30 BP 87/61 10/27/18 12:30 Pulse Ox 99 10/27/18 12:30 Intake & Output 10/26/18 10/27/18 10/27/18 18:59 06:59 18:59 Intake Total 377.28 48.125 602.1 Output Total 150 200 Balance 227.28 -151.875 602.1 Weight 50 kg Intake: Intake, IV Titration 37.28 48.125 122.1 Amount Heparin Sod,Pork in 0.45% 37.28 48.125 122.1 NaCl 25,000 unit In 0.45 % NaCl 1 250ml.bag @ 12 UNITS/KG/HR 6 mls/hr IV . Q24H [facility] Rx#:[id number] Oral 340 480 Output: Urine 150 200 Other: Voiding Method Urinal Urinal # Voids 1 1 - Constitutional General appearance: Present: no acute distress - Respiratory Respiratory: bilateral: diminished - Cardiovascular Rhythm: regular Heart sounds: normal: S1, S2 - Labs CBC & Chem 7: 10/27/18 05:22 10/26/18 08:05 Labs: Abnormal Lab Results - Last 24 Hours (Table) 10/26/18 10/26/18 10/26/18 Range/Units 15:27 19:59 22:32 Plt Count (150-450) k/uL APTT 37.4 H 39.7 H (22.0-30.0) sec Troponin I 0.049 H* (0.000-0.034) ng/mL HDL Cholesterol (40-60) mg/dL 10/27/18 10/27/18 10/27/18 Range/Units 05:22 05:22 05:22 Plt Count 149 L (150-450) k/uL APTT 50.8 H (22.0-30.0) sec Troponin I (0.000-0.034) ng/mL HDL Cholesterol 62 H (40-60) mg/dL Assessment and Plan Assessment: Assessment #1 acute hypoxic respiratory failure probably related to COPD exacerbation #2 known chronic hypoxic respiratory failure on oxygen at home #3 abnormal troponin. #4 drug abuse. The patient's urine screen is positive for cocaine #5 hypertension #6 dyslipidemia #8 malnourishment/dehydration Plan #1 continue the current medical regimen which include the aspirin as well as a statin #2 continue heparin for additional 24 hours #3 I would advise medical treatment for the abnormal cardiac enzymes, giving the absence of chest pain and chest discomfort, as well as knowing the patient won't be compliant with his antiplatelet therapy in case he needs to have revascularization #4 follow-up with the patient. Thank you for allowing us participate in his care
[2018-10-27 16:51] LABS: Glucose,Whole Blood 171 mg/dL (75-99)
[2018-10-27] MEDS: INSULIN ASPART (NovoLOG) 100 UNIT/ML VIAL SQ SCH ×2 (17:15→20:31)
[2018-10-27 20:29] LABS: Glucose,Whole Blood 290 mg/dL (75-99)
[2018-10-27] MEDS: ATORVASTATIN 10 MG TAB PO SCH (20:31)
[2018-10-28 06:13] LABS: HCT 27.3 % (39.0-53.0); HGB 8.3 gm/dL (13.0-17.5); Hypochromasia Marked; MCH 30.6 pg (25.0-35.0); MCHC 30.3 g/dL (31.0-37.0); MCV 101.1 fL (80.0-100.0); Macrocytosis Slight; Mean Platelet Volume 8.4; Platelet Count 171 k/uL (150-450); RDW 14.2 % (11.5-15.5); WBC 14.3 k/uL (3.8-10.6)
[2018-10-28 06:32] LABS: Glucose,Whole Blood 170 mg/dL (75-99)
[2018-10-28 06:37] LABS: African American GFR (CKD) >90 (>60 ml/min/1.73 sqM); Blood Urea Nitrogen 25 mg/dL (9-20); Calcium 8.9 mg/dL (8.4-10.2); Chloride 86 mmol/L (98-107); Glucose 147 mg/dL (74-99); Potassium 4.1 mmol/L (3.5-5.1); Sodium 138 mmol/L (137-145)
[2018-10-28] MEDS: INSULIN ASPART (NovoLOG) 100 UNIT/ML VIAL SQ SCH ×4 (06:40→20:51)
[2018-10-28] MEDS: methylPREDNISolone SOD SUCCI 125 MG/2 ML VIAL IV SCH (06:40)
[2018-10-28 06:44] LABS: Anion Gap 2 mmol/L
[2018-10-28 06:47] LABS: Carbon Dioxide 50 mmol/L (22-30)
--- NOTE | 2018-10-28 07:27 | P.PN ---
Subjective Progress Note Date: 10/28/18 Principal diagnosis: Altered mental status due to baseline hypercapnic hypoxic respiratory failure with substance use related to cocaine Acute on chronic hypoxic and hypercapnic respiratory failure Cocaine abuse Non ST segment elevated [place] due to cocaine use Hypertension hypertensive cardiovascular disease chronic anemia Protein calorie malnourishment Smoking and nicotine use 10/28/2018, patient seen and evaluated examined during the rounds her cuff congestion slightly improved patient is more awake and composed since then he has been refusing the BiPAP machine have consult about smoking cessation importance of follow-up in office Alba noted that white cell count is elevated so as the CO2 level likely related to chronic hypercapnia and hypercapnic hypoxic respiratory failure This is a 53-year-old male well-known to me with history of end-stage lung disease likely secondary due to severe COPD patient has chronic hypoxic respiratory failure on 3 L oxygen smell still smoking actively patient was hospitalized recently with left lower lobe pneumonia was discharged in stable condition did not come back for follow-up. Presented into the [facility] into the ER again brought in by EMS with altered mental status related to hypoxia and hypercapnia and also substance use as urine drug was positive for cocaine patient is bedbound has been treated with BiPAP machine 02/17 with 50% oxygen he is arousable but does not give any detailed history a sitter is present at be dside Objective - Vital Signs Vital signs: Vital Signs Temp 98 F 10/28/18 04:00 Pulse 82 10/28/18 04:00 Resp 18 10/28/18 04:00 BP 110/61 10/28/18 04:00 Pulse Ox 95 10/28/18 04:00 Intake & Output 10/27/18 10/28/18 10/28/18 18:59 06:59 18:59 Intake Total 842.1 Output Total 500 Balance 842.1 -500 Intake: Intake, IV Titration 122.1 Amount Heparin Sod,Pork in 0.45% 122.1 NaCl 25,000 unit In 0.45 % NaCl 1 250ml.bag @ 12 UNITS/KG/HR 6 mls/hr IV . Q24H [facility] [place] Rx#:[id number] Oral 720 Output: Urine 500 Other: Voiding Method Urinal Urinal # Voids 1 2 - Exam - Constitutional General appearance: cooperative, disheveled, mild distress - EENT Eyes: EOMI, PERRLA ENT: normal oropharynx Ears: bilateral: normal - Neck Carotids: bilateral: upstroke normal, bruit absent Thyroid: negative: normal size - Respiratory Respiratory: bilateral: diminished, wheezing (Fine expiratory), prolonged expiration, negative: dullness, rales, rhonchi - Cardiovascular Rhythm: regular Heart sounds: normal: S1, S2 - Gastrointestinal General gastrointestinal: decreased bowel sounds, soft - Integumentary Integumentary: normal turgor - Neurologic Neurologic: CNII-XII intact - Musculoskeletal Musculoskeletal: gait normal, generalized weakness, strength equal bilaterally - Psychiatric Psychiatric: A&O x's 3, appropriate affect, intact judgment & insight - Labs CBC & Chem 7: 10/28/18 05:58 10/28/18 05:58 Labs: Abnormal Lab Results - Last 24 Hours (Table) 10/27/18 10/27/18 10/28/18 Range/Units 16:21 20:27 05:58 WBC 14.3 H (3.8-10.6) k/uL RBC 2.70 L (4.30-5.90) m/uL Hgb 8.3 L (13.0-17.5) gm/dL Hct 27.3 L (39.0-53.0) % MCV 101.1 H (80.0-100.0) fL MCHC 30.3 L (31.0-37.0) g/dL APTT (22.0-30.0) sec Chloride (98-107) mmol/L Carbon Dioxide (22-30) mmol/L BUN (9-20) mg/dL Creatinine (0.66-1.25) mg/dL Glucose (74-99) mg/dL POC Glucose (mg/dL) 171 H 290 H (75-99) mg/dL 10/28/18 10/28/18 10/28/18 Range/Units 05:58 05:58 06:30 WBC (3.8-10.6) k/uL RBC (4.30-5.90) m/uL Hgb (13.0-17.5) gm/dL Hct (39.0-53.0) % MCV (80.0-100.0) fL MCHC (31.0-37.0) g/dL APTT 46.6 H (22.0-30.0) sec Chloride 86 L (98-107) mmol/L Carbon Dioxide 50 H* (22-30) mmol/L BUN 25 H (9-20) mg/dL Creatinine 0.34 L (0.66-1.25) mg/dL Glucose 147 H (74-99) mg/dL POC Glucose (mg/dL) 170 H (75-99) mg/dL Assessment and Plan Assessment: Altered mental status due to baseline hypercapnic hypoxic respiratory failure with substance use related to cocaine Acute on chronic hypoxic and hypercapnic respiratory failure Cocaine abuse Non ST segment elevated [place] due to cocaine use Hypertension hypertensive cardiovascular disease chronic anemia Protein calorie malnourishment Smoking and nicotine use Plan: Gentle rehydration Bronchodilator IV steroids Bedside sitter Continue monitor clinical course closely agree with heparin due to elevated troponin Further recommendations pending plan of care as per clinical response of the patient Based on the x-ray patient appears to be recovering from left lower lobe pneu monia no need for antibiotics at this time
[2018-10-28] MEDS: BUDESONIDE 0.5 MG/2 ML NEBU INHALATION SCH ×2 (08:37→19:31)
[2018-10-28] MEDS: IPRATROPIUM-ALBUTEROL 3 ML NEB INHALATION SCH ×4 (08:37→19:32)
[2018-10-28 11:37] LABS: Glucose,Whole Blood 160 mg/dL (75-99)
[2018-10-28] MEDS: HEPARIN SOD,PORK IN 0.45% NACL 25,000 UNIT in 0.45% NACL 1 250ML.BAG IV SCH (12:10)
[2018-10-28] MEDS: ASPIRIN 325 MG TAB PO SCH (12:18)
--- NOTE | 2018-10-28 12:44 | P.PN ---
Subjective Progress Note Date: 10/28/18 Principal diagnosis: Acute coronary event This is a 53-year-old gentleman with a past medical history significant for chronic obstructive pulmonary disease, chronic hypoxic respiratory failure on oxygen at 3 L at home, hypertension, and dyslipidemia, was brought by his family to the emergency department with a change in mental status as well as increasing in the shortness of breath. Currently the patient is on BiPAP. Beside that he is somewhat is a poor historian and the history was taken from his brother who was admitted side. The patient was in his usual state of health until yesterday where he lives with his family but overall not very active. Yesterday the patient did fell twice. There is no indication of loss of consciousness. Early this morning, the family noticed that the patient oxygen saturation was dropping down and the patient himself was more short of breath. Because of that they brought him to the emergency department. In the ER, the patient was also found to be hypoxic and he was placed on BiPAP. The patient himself is a poor historian but he denies any symptoms of chest pain or chest discomfort, he stated that his breathing is slightly better now, no feeling of heart racing or fluttering and no syncope when he fell last night. He underwent a computed tomography scan of the brain which showed no acute abnormalities. He underwent a chest x-ray which showed findings consistent with COPD without any evidence of fluid overload and without any acute abnormalities. The EKG showed sinus tachycardia which could be related to the respiratory distress. The troponin was checked and that came in to be slightly abnormal. Beside that drug screen was performed and that came in to be positive for cocaine. The patient is not aware of any prior history of coronary artery disease or coronary revascularization. He just was discharged from the hospital in September 2018 when he was admitted with acute exacerbation of COPD. In 2016, the patient was also admitted with COPD exacerbation and abnormal cardiac enzymes. At that point he underwent an echocardiogram which revealed impaired LV function was EF around 40%. 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 Overall, the patient seems to be malnourished and also seems to be dehydrated on examination. On follow-up with the patient today, 10/28/2018, the patient continues to be stable from a cardiovascular standpoint of view. We'll follow-up with the patient on when necessary case. Objective - Vital Signs Vital signs: Vital Signs Temp 98.2 F 10/28/18 09:50 Pulse 80 10/28/18 12:07 Resp 18 10/28/18 09:50 BP 104/59 10/28/18 09:50 Pulse Ox 96 10/28/18 09:50 Intake & Output 10/27/18 10/28/18 10/28/18 18:59 06:59 18:59 Intake Total 842.1 720 Output Total 500 150 Balance 842.1 -500 570 Intake: Intake, IV Titration 122.1 Amount Heparin Sod,Pork in 0.45% 122.1 NaCl 25,000 unit In 0.45 % NaCl 1 250ml.bag @ 12 UNITS/KG/HR 6 mls/hr IV . Q24H [facility] Rx#:[id number] Oral 720 720 Output: Urine 500 150 Other: Voiding Method Urinal Urinal Urinal # Voids 1 2 1 - Constitutional General appearance: Present: no acute distress - Respiratory Respiratory: bilateral: diminished - Cardiovascular Rhythm: regular Heart sounds: normal: S1, S2 - Labs CBC & Chem 7: 10/28/18 05:58 10/28/18 05:58 Labs: Abnormal Lab Results - Last 24 Hours (Table) 10/27/18 10/27/18 10/28/18 Range/Units 16:21 20:27 05:58 WBC 14.3 H (3.8-10.6) k/uL RBC 2.70 L (4.30-5.90) m/uL Hgb 8.3 L (13.0-17.5) gm/dL Hct 27.3 L (39.0-53.0) % MCV 101.1 H (80.0-100.0) fL MCHC 30.3 L (31.0-37.0) g/dL APTT (22.0-30.0) sec Chloride (98-107) mmol/L Carbon Dioxide (22-30) mmol/L BUN (9-20) mg/dL Creatinine (0.66-1.25) mg/dL Glucose (74-99) mg/dL POC Glucose (mg/dL) 171 H 290 H (75-99) mg/dL 10/28/18 10/28/18 10/28/18 Range/Units 05:58 05:58 06:30 WBC (3.8-10.6) k/uL RBC (4.30-5.90) m/uL Hgb (13.0-17.5) gm/dL Hct (39.0-53.0) % MCV (80.0-100.0) fL MCHC (31.0-37.0) g/dL APTT 46.6 H (22.0-30.0) sec Chloride 86 L (98-107) mmol/L Carbon Dioxide 50 H* (22-30) mmol/L BUN 25 H (9-20) mg/dL Creatinine 0.34 L (0.66-1.25) mg/dL Glucose 147 H (74-99) mg/dL POC Glucose (mg/dL) 170 H (75-99) mg/dL 10/28/18 Range/Units 11:35 WBC (3.8-10.6) k/uL RBC (4.30-5.90) m/uL Hgb (13.0-17.5) gm/dL Hct (39.0-53.0) % MCV (80.0-100.0) fL MCHC (31.0-37.0) g/dL APTT (22.0-30.0) sec Chloride (98-107) mmol/L Carbon Dioxide (22-30) mmol/L BUN (9-20) mg/dL Creatinine (0.66-1.25) mg/dL Glucose (74-99) mg/dL POC Glucose (mg/dL) 160 H (75-99) mg/dL Assessment and Plan Assessment: Assessment #1 acute hypoxic respiratory failure probably related to COPD exacerbation #2 known chronic hypoxic respiratory failure on oxygen at home #3 abnormal troponin. #4 drug abuse. The patient's urine screen is positive for cocaine #5 hypertension #6 dyslipidemia #8 malnourishment/dehydration Plan #1 continue the current medical regimen which include the aspirin as well as a statin #2 we'll follow-up with the patient on when necessary case
--- NOTE | 2018-10-28 14:48 | P.PN ---
Subjective Progress Note Date: 10/28/18 This is a 53-year-old male patient of Dr. Plata and Dr. Magallon with past medical history of COPD, chronic hypoxic respiratory failure on 3 L of oxygen at home, hyperlipidemia, hypertension, tobacco use and dependence. Patient continues to smoke half a pack per day. Patient had a recent hospit alization September 16 through September 23 at which time he was treated for acute on chronic hypoxic hypercapnic respiratory failure secondary to COPD exacerbation and left lower lobe pneumonia along with acute hypoxic encephalopathy secondary to CO2 narcosis. Patient was followed during this admission by his pulmonary medicine doctor, Dr. Magallon. Patient was discharged to home. Patient presented to [facility] emergency center for evaluation by EMS with low pulse ox with mental status changes. Apparently patient had a fall last night with no signs of head injury. Upon arrival to the ER, patient was unresponsive and unable to provide any history. He apparently was without his oxygen throughout the night. He was found to be afebrile, heart rate 110, respiratory rate 24, blood pressure 134/70. EKG was a sinus tachycardia with no acute ST changes. Hemoglobin 9.6, CO2 54, chloride 82. ABGs revealed a pH of 7.44, pCO2 87, pO2 55, bicarb 59, total CO2 62, O2 saturation 92% Leo excess 35.3 on FiO2 of 36. CK was 36, alcohol level less than 10. Troponin 0.040. Urine drug screen positive for cocaine. Urinalysis negative for urinary tract infection. CAT scan of the brain revealed no acute abnormality. Chest x-ray showed COPD with mild interstitial lung disease. Patient was started on a heparin drip, Solu-Medrol DuoNeb treatments and admitted to the cardiac stepdown unit where consult placed for cardiology regarding 1 elevated troponin and consult with Dr. Magallon has pulmonary medicine doctor. Patient was also placed on BiPAP. 10/27: Patient is seen on the cardiac stepdown unit. He is now on BiPAP. He states he is feeling much better from yesterday. Patient has been seen by cardiology and Dr. Magallon from pulmonary medicine. He remains on Solu-Medrol at 60 mg IV every 6 hours and NovoLog scale will be added. Patient is on heparin drip and repeat troponins are 0.081 and 0.049. Platelet count is at 149. Triglycerides 75, cholesterol 132, LDL 55 and HDL 62. The patient has been afebrile, heart rate in the 80s, blood pressure 112/62 and pulse ox 95% on BiPAP at 50% FiO2. Echocardiogram reveals EF of 55-60%, trace mitral regurgitation, mild tricuspid regurgitation, mild pulmonary hypertension. 10/28: Patient is breathing status is stable and is back to his baseline. He is pulse ox 96% on 4 L. He has been afebrile, heart rate 78, blood pressure 114/ 61. White count is 14.3, hemoglobin 8.3, platelet count 171. CO2 is 50, BUN 25 and creatinine 0.34. Patient has been refusing BiPAP. We will plan to monitor patient overnight and plan for discharge home tomorrow. Patient will be transferred to the [facility] floor and we will decrease Solu-Medrol today and start prednisone in the morning. Dr. Rodriguez has advised to discontinue heparin today and will follow on an as-needed basis. He recommends continuing aspirin and statin. Objective - Vital Signs Vital signs: Vital Signs Temp 98.2 F 10/28/18 09:50 Pulse 80 10/28/18 12:07 Resp 18 10/28/18 09:50 BP 104/59 10/28/18 09:50 Pulse Ox 96 10/28/18 09:50 Intake & Output 10/27/18 10/28/18 10/28/18 18:59 06:59 18:59 Intake Total 842.1 720 Output Total 500 150 Balance 842.1 -500 570 Intake: Intake, IV Titration 122.1 Amount Heparin Sod,Pork in 0.45% 122.1 NaCl 25,000 unit In 0.45 % NaCl 1 250ml.bag @ 12 UNITS/KG/HR 6 mls/hr IV . Q24H [facility] Rx#:[id number] Oral 720 720 Output: Urine 500 150 Other: Voiding Method Urinal Urinal Urinal # Voids 1 2 1 - Exam Review Of Systems: Constitutional: No fever, no chills, no night sweats. No weight change. Reports weakness, fatigue or lethargy. No daytime sleepiness. EENT: No headache. No blurred vision or double vision, no loss of vision. No loss of Hearing, no ringing in the ears, no dizziness. No nasal drainage or congestion. No epistaxis. No sore throat. Lungs: Denies shortness of breath--at baseline, reports cough, no sputum production. Reports wheezing. Cardiovascular: No chest pain, no lower extremity edema. No palpitations. No paroxysmal nocturnal dyspnea. No orthopnea. No lightheadedness or dizziness. No syncopal episodes. Abdominal: No abdominal pain. No nausea, vomiting. No diarrhea. No constipation. No bloody or tarry stools.. No loss of appetite. Genitourinary: No dysuria, increased frequency, urgency. No urinary retention. Musculoskeletal: No myalgias. Reports muscle weakness, no gait dysfunction, no frequent falls. No back pain. No neck pain. Integumentary: No wounds, no lesions. No rash or pruritus. No unusual bruising. No change in hair or nails. Neurologic: No aphasia. No facial droop. No change in mentation. No head injury. No headache. No paralysis. No paresthesia. Psychiatric: No depression. No anxiety. No mood swings. Endocrine: Reports abnormal blood sugars. No excessive sweating or thirst. No cold intolerance. Gen: This is a thin cachectic appearing 53-year-old male. Patient is resting in bed and appears to be comfortable HEENT: Head is atraumatic, normocephalic. Pupils equal, round. Sclerae is anicteric. NECK: Supple. No JVD. No lymphadenopathy. No thyromegaly. LUNGS: Diminished bilaterally. Poor inspiratory effort. Mild intercostal retractions. HEART: Regular rate and rhythm. No murmur. ABDOMEN: Soft. Bowel sounds are present. No masses. No tenderness. EXTREMITIES: No pedal edema. No calf tenderness. NEUROLOGICAL: Patient is awake, alert and oriented x3. Generalized weakness noted. - Labs CBC & Chem 7: 10/28/18 05:58 10/28/18 05:58 Labs: Abnormal Lab Results - Last 24 Hours (Table) 10/27/18 10/27/18 10/28/18 Range/Units 16:21 20:27 05:58 WBC 14.3 H (3.8-10.6) k/uL RBC 2.70 L (4.30-5.90) m/uL Hgb 8.3 L (13.0-17.5) gm/dL Hct 27.3 L (39.0-53.0) % MCV 101.1 H (80.0-100.0) fL MCHC 30.3 L (31.0-37.0) g/dL APTT (22.0-30.0) sec Chloride (98-107) mmol/L Carbon Dioxide (22-30) mmol/L BUN (9-20) mg/dL Creatinine (0.66-1.25) mg/dL Glucose (74-99) mg/dL POC Glucose (mg/dL) 171 H 290 H (75-99) mg/dL 10/28/18 10/28/18 10/28/18 Range/Units 05:58 05:58 06:30 WBC (3.8-10.6) k/uL RBC (4.30-5.90) m/uL Hgb (13.0-17.5) gm/dL Hct (39.0-53.0) % MCV (80.0-100.0) fL MCHC (31.0-37.0) g/dL APTT 46.6 H (22.0-30.0) sec Chloride 86 L (98-107) mmol/L Carbon Dioxide 50 H* (22-30) mmol/L BUN 25 H (9-20) mg/dL Creatinine 0.34 L (0.66-1.25) mg/dL Glucose 147 H (74-99) mg/dL POC Glucose (mg/dL) 170 H (75-99) mg/dL 10/28/18 Range/Units 11:35 WBC (3.8-10.6) k/uL RBC (4.30-5.90) m/uL Hgb (13.0-17.5) gm/dL Hct (39.0-53.0) % MCV (80.0-100.0) fL MCHC (31.0-37.0) g/dL APTT (22.0-30.0) sec Chloride (98-107) mmol/L Carbon Dioxide (22-30) mmol/L BUN (9-20) mg/dL Creatinine (0.66-1.25) mg/dL Glucose (74-99) mg/dL POC Glucose (mg/dL) 160 H (75-99) mg/dL Assessment and Plan Plan: 1. Acute on chronic hypoxic hypercapnic respiratory failure secondary to COPD exacerbation and noncompliance with oxygen therapy. Continue IV Solu-Medrol decreased today and start prednisone a morning DuoNeb treatments every 6 hours and as needed, continue Pulmicort twice daily. Consult with Dr. Magallon appreciated. 2. Acute hypoxic and hypercapnic encephalopathy secondary to CO2 narcosis. Continue BiPAP or high flow nasal cannula. 3. Drug abuse with urine drug screen positive for cocaine. Continue cardiac monitoring. 4. Hypertension. Patient is normally on losartan 50 mg daily which will be held due to hypotension. 5. Hypochloremia. Continue IV fluids. 6. Elevated troponin most likely secondary to cocaine use. Cardiology consult appreciated. Echocardiogram report as above. Discontinue heparin drip, continue aspirin 325 mg daily, Lipitor. Cardiology is following on an as needed basis. 7. Anemia of chronic disease and malnourishment. 8. Hyperlipidemia. Continue Lipitor 10 mg at bedtime. 9. Severe protein calorie malnutrition. Patient will require protein supplement once he is able to eat. 10. Tobacco use and dependence. 11. GI prophylaxis. Pepcid 20 mg twice daily. 12. DVT prophylaxis. Lovenox 40 mg subcu daily. Discharge plan: Home tomorrow. Impression and plan of care have been directed as dictated by the signing physician. [employer] nurse practitioner acting as scribe for signing physician.
[2018-10-28] MEDS ORDERED: methylPREDNISolone SOD SUCCI 40 MG/ML 1 ML VIAL IV SCH (16:00)
[2018-10-28 17:02] LABS: Glucose,Whole Blood 159 mg/dL (75-99)
[2018-10-28 20:21] LABS: Glucose,Whole Blood 226 mg/dL (75-99)
[2018-10-28] MEDS: ATORVASTATIN 10 MG TAB PO SCH (20:51)
[2018-10-28 21:33] VITALS: TEMP 98
[2018-10-29 05:01] VITALS: BP 126/76; RESP 16
[2018-10-29 07:13] LABS: Glucose,Whole Blood 115 mg/dL (75-99)
[2018-10-29] MEDS: INSULIN ASPART (NovoLOG) 100 UNIT/ML VIAL SQ SCH (07:14)
[2018-10-29] MEDS: BUDESONIDE 0.5 MG/2 ML NEBU INHALATION SCH (08:29)
[2018-10-29] MEDS: IPRATROPIUM-ALBUTEROL 3 ML NEB INHALATION SCH (08:29)
[2018-10-29] MEDS: ASPIRIN 325 MG TAB PO SCH (08:35)
[2018-10-29 08:48] VITALS: PULSE 80
[2018-10-29] MEDS ORDERED: predniSONE 20 MG TAB PO SCH (09:00)
--- NOTE | 2018-10-29 09:24 | P.PN ---
Subjective Progress Note Date: 10/29/18 Principal diagnosis: Altered mental status due to baseline hypercapnic hypoxic respiratory failure with substance use related to cocaine Acute on chronic hypoxic and hypercapnic respiratory failure Cocaine abuse Non ST segment elevated [place] due to cocaine use Hypertension hypertensive cardiovascular disease chronic anemia Protein calorie malnourishment Smoking and nicotine use 10/29/2018, patient seen eval examined during the rounds patient is overall doing well awake and alert on supplemental oxygen if use the BiPAP machine, abs reviewed medications reviewed patient has been switched to oral prednisone agree with discharge planning and follow-up on outpatient basis 10/28/2018, patient seen and evaluated examined during the rounds her cuff congestion slightly improved patient is more awake and composed since then he has been refusing the BiPAP machine have consult about smoking cessation importance of follow-up in office Alba noted that white cell count is elevated so as the CO2 level likely related to chronic hypercapnia and hypercapnic hypoxic respiratory failure This is a 53-year-old male well-known to me with history of end-stage lung disease likely secondary due to severe COPD patient has chronic hypoxic respiratory failure on 3 L oxygen smell still smoking actively patient was hospitalized recently with left lower lobe pneumonia was discharged in stable condition did not come back for follow-up. Presented into the [facility] into the ER again brought in by EMS with altered mental status related to hypoxia and hypercapnia and also substance use as urine drug was positive for cocaine patient is bedbound has been treated with BiPAP machine 02/17 with 50% oxygen he is arousable but does not give any detailed history a sitter is present at bedside Objective - Vital Signs Vital signs: Vital Signs Temp 98 F 10/29/18 05:00 Pulse 80 10/29/18 08:47 Resp 16 10/29/18 05:00 BP 126/76 10/29/18 05:00 Pulse Ox 99 10/29/18 08:32 Intake & Output 10/28/18 10/29/18 10/29/18 18:59 06:59 18:59 Intake Total 720 480 Output Total 400 200 Balance 320 280 Weight 50 kg Intake: Oral 720 480 Output: Urine 400 200 Other: Voiding Method Urinal Urinal # Voids 1 2 - Exam - Constitutional General appearance: cooperative, disheveled, mild distress - EENT Eyes: EOMI, PERRLA ENT: normal oropharynx Ears: bilateral: normal - Neck Carotids: bilateral: upstroke normal, bruit absent Thyroid: negative: normal size - Respiratory Respiratory: bilateral: diminished, wheezing (Fine expiratory), prolonged expiration, negative: dullness, rales, rhonchi - Cardiovascular Rhythm: regular Heart sounds: normal: S1, S2 - Gastrointestinal General gastrointestinal: decreased bowel sounds, soft - Integumentary Integumentary: normal turgor - Neurologic Neurologic: CNII-XII intact - Musculoskeletal Musculoskeletal: gait normal, generalized weakness, strength equal bilaterally - Psychiatric Psychiatric: A&O x's 3, appropriate affect, intact judgment & insight - Labs CBC & Chem 7: 10/28/18 05:58 10/28/18 05:58 Labs: Abnormal Lab Results - Last 24 Hours (Table) 10/28/18 10/28/18 10/28/18 Range/Units 11:35 17:00 20:19 POC Glucose (mg/dL) 160 H 159 H 226 H (75-99) mg/dL 10/29/18 Range/Units 07:11 POC Glucose (mg/dL) 115 H (75-99) mg/dL Assessment and Plan Assessment: Altered mental status due to baseline hypercapnic hypoxic respiratory failure with substance use related to cocaine improved now Acute on chronic hypoxic and hypercapnic respiratory failure, stable Cocaine abuse Non ST segment elevated [place] due to cocaine use Hypertension hypertensive cardiovascular disease chronic anemia Protein calorie malnourishment Smoking and nicotine use Plan: Gentle rehydration Bronchodilator Oral steroids Continue monitor clinical course closely agree with discharge planning Further recommendations pending plan of care as per clinical response of the patient Based on the x-ray patient appears to be recovering from left lower lobe pneumonia no need for antibiotics at this time Time with Patient: Greater than 30
--- NOTE | 2018-10-29 14:26 | P.DS ---
Providers Date of admission: 10/26/18 10:01 Expected date of discharge: 10/29/18 Attending physician: Harvey Crowder Consults: 10/26/18 10:01 Consult Physician Routine Consulting Provider: Howard Rodriguez Consult Reason/Comments: Elevated troponin, cardiac evaluation Do you want consulting provider notified?: Yes Consult Physician Routine Consulting Provider: Ravindra Magallon Consult Reason/Comments: Respiratory failure Do you want consulting provider notified?: Yes Primary care physician: Fabien Plata [facility] Course: This is a 53-year-old male patient of Dr. Plata and Dr. Magallon with past medical history of COPD, chronic hypoxic respiratory failure on 3 L of oxygen at home, hyperlipidemia, hypertension, tobacco use and dependence. Patient continues to smoke half a pack per day. Patient had a recent hospitalization September 16 through September 23 at which time he was treated for acute on chronic hypoxic hypercapnic respiratory failure secondary to COPD exacerbation and left lower lobe pneumonia along with acute hypoxic encephalopathy secondary to CO2 narcosis. Patient was followed during this admission by his pulmonary medicine doctor, Dr. Magallon. Patient was discharged to home. Patient presented to [facility] emergency center for evaluation by EMS with low pulse ox with mental status changes. Apparently patient had a fall last night with no signs of head injury. Upon arrival to the ER, patient was unresponsive and unable to provide any history. He apparently was without his oxygen throughout the night. He was found to be afebrile, heart rate 110, respiratory rate 24, blood pressure 134/70. EKG was a sinus tachycardia with no acute ST changes. Hemoglobin 9.6, CO2 54, chloride 82. ABGs revealed a pH of 7.44, pCO2 87, pO2 55, bicarb 59, total CO2 62, O2 saturation 92% Leo excess 35.3 on FiO2 of 36. CK was 36, alcohol level less than 10. Troponin 0.040. Urine drug screen positive for cocaine. Urinalysis negative for urinary tract infection. CAT scan of the brain revealed no acute abnormality. Chest x-ray showed COPD with mild interstitial lung disease. Patient was started on a heparin drip, Solu-Medrol DuoNeb treatments and admitted to the cardiac stepdown unit where consult placed for cardiology regarding 1 elevated troponin and consult with Dr. Magallon has pulmonary medicine doctor. Patient was also placed on BiPAP. 10/27: Patient is seen on the cardiac stepdown unit. He is now on BiPAP. He states he is feeling much better from yesterday. Patient has been seen by cardiology and Dr. Magallon from pulmonary medicine. He remains on Solu-Medrol at 60 mg IV every 6 hours and NovoLog scale will be added. Patient is on heparin drip and repeat troponins are 0.081 and 0.049. Platelet count is at 149. Triglyceri sergei 75, cholesterol 132, LDL 55 and HDL 62. The patient has been afebrile, heart rate in the 80s, blood pressure 112/62 and pulse ox 95% on BiPAP at 50% FiO2. Echocardiogram reveals EF of 55-60%, trace mitral regurgitation, mild tricuspid regurgitation, mild pulmonary hypertension. 10/28: Patient is breathing status is stable and is back to his baseline. He is pulse ox 96% on 4 L. He has been afebrile, heart rate 78, blood pressure 114/61. White count is 14.3, hemoglobin 8.3, platelet count 171. CO2 is 50, BUN 25 and creatinine 0.34. Patient has been refusing BiPAP. We will plan to monitor patient overnight and plan for discharge home tomorrow. Patient will be transferred to the [facility] floor and we will decrease Solu-Medrol today and start prednisone in the morning. Dr. Rodriguez has advised to discontinue heparin today and will follow on an as-needed basis. He recommends continuing aspirin and statin. 10/29: Patient denies any new complaints. His breathing is at baseline. We have transitioned him to oral prednisone this morning. Patient is anxious to be discharged home and wants to call his family for right home. Patient will be discharged home today in stable condition. Discharge diagnoses: 1. Acute on chronic hypoxic hypercapnic respiratory failure secondary to COPD exacerbation and noncompliance with oxygen therapy. 2. Acute hypoxic and hypercapnic encephalopathy secondary to CO2 narcosis. 3. Drug abuse with urine drug screen positive for cocaine. 4. Hypertension. 5. Hypochloremia. 6. Elevated troponin most likely secondary to cocaine use. 7. Anemia of chronic disease and malnourishment. 8. Hyperlipidemia. 9. Severe protein calorie malnutrition. 10. Tobacco use and dependence. Discharge plan: Home Impression and plan of care have been directed as dictated by the signing physician. Anamaria Gaming nurse practitioner acting as scribe for signing physician. Patient Condition at Discharge: Good Plan - Discharge Summary New Discharge Prescriptions: New Aspirin EC [Ecotrin Low Dose] 81 mg PO DAILY #30 tablet. predniSONE 0 mg PO DIRECTED #30 tab Continue Ipratropium-Albuterol Nebulize [Duoneb 0.5 mg-3 mg/3 ml Soln] 3 ml INHALATION RT-QID #120 ampul.neb Losartan [Cozaar] 50 mg PO DAILY Atorvastatin Calcium [Lipitor] 10 mg PO HS Discharge Medication List Ipratropium-Albuterol Nebulize [Duoneb 0.5 mg-3 mg/3 ml Soln] 3 ml INHALATION RT-QID #120 ampul.neb 08/20/15 [Rx] Atorvastatin Calcium [Lipitor] 10 mg PO HS 07/07/17 [History] Losartan [Cozaar] 50 mg PO DAILY 07/07/17 [History] Aspirin EC [Ecotrin Low Dose] 81 mg PO DAILY #30 tablet. 10/29/18 [Rx] predniSONE 0 mg PO DIRECTED #30 tab 10/29/18 [Rx] Follow up Appointment(s)/Referral(s): Fabien Plata DO [Primary Care Provider] - 1 Week (Office will call with appoinment time) Ravindra Magallon MD [STAFF PHYSICIAN] - 11/18/18 9:00 am Patient Instructions/Handouts: COPD (Chronic Obstructive Pulmonary Disease) (DC) Discharge Disposition: HOME SELF-CARE
--- NOTE | 2018-11-02 02:17 | CDI ---
Documentation Clarification Form Date: 11/02/18 From: Joecamilla Hookerdy Phone: call [phone] Admit Date: 10/26/2018 10:01:00 AM Patient Name: Camilo Varghese Visit Number: [id number] Discharge Date: 10/29/2018 10:59:00 AM ATTENTION: The Clinical Documentation Specialists (CDI) and [facility] Coding Staff appreciate your assistance in clarifying documentation. Please respond to the clarification below the line at the bottom and electronically sign. The CDI & [facility] Coding staff will review the response and follow-up if needed. Please note: Queries are made part of the Legal Health Record. If you have any questions, please contact the author of this message via ITS. Dr. Anamaria Gaming, Patient admitted with SOB and AMS, Altered mental status due to baseline hypercapnic hypoxic respiratory failure with substance use related to cocaine improved now. Patient history/risk factors: AMS, SOB, encephalopathy,cocaine abuse. Drug abuse with urine drug screen positive for cocaine.,Elevated troponin most likely secondary to cocaine use. Acute hypoxic and hypercarpenic encephalopathy secondary to Co2 Narcosis. Other Clinical Indicators: AMS with cocaine use. Treatment: Conservative treatment UDS : Urine drug screen positive for cocaine. In your professional opinion, can you please clarify the presence of overdose. Overdose with cocaine Toxic Encephalopathy Other, Please specify, unable to determine. MTDD
== END 2018-10-29 10:59 | disposition home or self-care (01) | DRG 91 ==
LOC: EC 07:45 → 3SCARD 10:01 → 3NMEDONC 10-28 12:59
PROVIDERS: ADMIT Internal Medicine Geriatric Medicine; ATTEND Internal Medicine Geriatric Medicine
PROC: 5A09457 Assistance with Respiratory Ventilation, 24-96 Consecutive Hours, Continuous Positive Airway Pressure (ICD-10-PCS; principal; 2018-10-26)
DX: G93.1 Anoxic brain damage, not elsewhere classified (principal); J96.22 Acute and chronic respiratory failure with hypercapnia; E43 Unspecified severe protein-calorie malnutrition; I21.4 Non-ST elevation (NSTEMI) myocardial infarction; J96.21 Acute and chronic respiratory failure with hypoxia; J44.1 Chronic obstructive pulmonary disease with (acute) exacerbation; J84.9 Interstitial pulmonary disease, unspecified; G93.49 Other encephalopathy; D63.8 Anemia in other chronic diseases classified elsewhere; E78.5 Hyperlipidemia, unspecified; E86.0 Dehydration; E87.8 Other disorders of electrolyte and fluid balance, not elsewhere classified; F17.210 Nicotine dependence, cigarettes, uncomplicated; I11.9 Hypertensive heart disease without heart failure; W19.XXXA Unspecified fall, initial encounter; Z74.01 Bed confinement status; Z79.51 Long term (current) use of inhaled steroids; Z79.82 Long term (current) use of aspirin; Z79.899 Other long term (current) drug therapy; Z82.49 Family history of ischemic heart disease and other diseases of the circulatory system; Z91.19 Patient's noncompliance with other medical treatment and regimen; Z99.81 Dependence on supplemental oxygen
CPT/HCPCS: 36415; 36600; 70450; 71045; 72125; 80048; 80053; 80061; 80306; 80320; 81001; 82550; 82805; 83735; 84484; 85025; 85027; 85049; 85610; 85730; 93005; 93306; 94640; 94660; 94760; 96374; 99291